=== PATIENT | female | born 1995 | race Caucasian/White ===

== ENCOUNTER 2022-04-18 10:15 | Emergency (ER) | payer OTHER, SELFPAY ==
[2022-04-18 10:28] VITALS: BP 133/84; PULSE 90; RESP 18; TEMP 36.9; O2SAT 100
--- NOTE | 2022-04-18 10:31 | ED.PREGNANCY ---
HPI - General Chief complaint: OB/Uterine Contractions Stated complaint: MIGRAINE Time Seen by Provider: 04/18/22 10:31 Source: patient Mode of arrival: ambulatory History of Present Illness HPI Narrative: 26-year-old female, currently (based on a home test a test done this morning) with last LMP on 03/19/2022 presents to the ER with -- spotting vaginal bleeding -- right lower quadrant abdominal pain without any exacerbating or relieving factors. No radiation of the pain. No nausea / vomiting. No fever. history of anxiety for which the patient takes Trileptal Complaint: abdominal pain and vaginal bleeding Onset (ago): hour(s) ( Started 4 hours ago) Pain Consistency: constant Severity: mild Quality: Aching Radiation: abdomen Relieving factors: none Exacerbating factors: none Associated symptoms: vaginal bleeding Vaginal bleeding: light Date of Last Menstrual Period: 03/19/22 Patient : Yes Number of Weeks : 4 weeks OB History - Previous Pregnancies: miscarriage ( 2 miscarriages at 7 and 9 weeks.) care: none Related Data : 5 Para: 2 Total number of abortions (spontaneous and elective): 2 Home Medications Medication Instructions Recorded Confirmed hydroxyzine HCl 25 mg tablet 25 mg PO BID PRN Anxiety 04/18/22 04/18/22 oxcarbazepine 300 mg tablet 300 mg PO BID 04/18/22 04/18/22 (Trileptal) propranolol 160 mg capsule,24 160 mg PO DAILY 04/18/22 04/18/22 hr,extended release Allergies Allergy/AdvReac Type Severity Reaction Status Date / Time nitrofurantoin Allergy Itching Verified 04/18/22 10:33 [From Macrobid] Review of Systems Review of Systems: All systems reviewed & are unremarkable except as noted in HPI and below Constitutional: Constitutional: Reports as per HPI and Reports no additional constitutional complaints Eyes: Eyes: Reports as per HPI and Reports no additional eye complaints ENT: Reports system reviewed and no additional complaints, except as documented and Reports as per HPI Cardiovascular: Cardiovascular: Reports as per HPI and Reports no additional cardiovascular complaints Respiratory: Respiratory: Reports as per HPI and Reports no additional respiratory complaints Gastrointestinal: Gastrointestinal: Reports as per HPI and Reports no additional gastrointestinal complaints Genitourinary: Genitourinary: Reports as per HPI, Reports abnormal vaginal bleeding and Reports pelvic pain Musculoskeletal: Musculoskeletal: Reports no additional musculoskeletal complaints and Reports as per HPI Integumentary/Breasts: Skin/Breast: Reports system reviewed and no additional complaints, except as docu and Reports as per HPI Neurologic: Reports system reviewed and no additional complaints, except as documented and Reports as per HPI Psychiatric: Psychiatric: Reports no additional psychiatric complaints and Reports as per HPI Endocrine: Endocrine: Reports no additional endocrine complaints and Reports as per HPI Hematologic/Lymphatic: Hematologic/Lymphatic: Reports no additional hematologic/lymphatic complaints and Reports as per HPI Allergic/Immunologic: Allergic/Immunologic: Reports no additional allergic/immunologic complaints and Reports as per HPI [facility] Past Medical History Medical History Anxiety Surgical History Surgical History Previous section Exam Const: General: no acute distress Nutritional Appearance: well nourished Orientation/consciousness: patient oriented x3 Limitations: no limitations HENMT: Head: normal to inspection Ears: external ears normal Face/Nose/Sinus: Normal external nose present Face and sinus: normal facial exam Mouth: Yes Normal oral and palatal mucosa present Throat: posterior oropharynx normal Eyes: Conjunctivae: conjunctivae normal Pupils: Equ
[2022-04-18 10:48] LABS: Appearance Urine Clear (Clear); Bilirubin Urine Negative (Negative); Blood Urine Negative (Negative); Glucose Urine UA Negative (Negative); Ketones Urine Negative (Negative); Leukocyte Esterase Ur Negative (Negative); Nitrate Urine Negative (Negative); Protein Urine Negative (Negative); Urobilinogen Urine 0.2 mg/dL (0.2-1.0)
[2022-04-18 10:52] LABS: Add Urine Microscopic? NO; Color Urine Light Yellow (Yellow)
[2022-04-18 10:59] LABS: Basophils Absolute Auto 0.03 K/mm3 (0.00-0.10); Basophils Percent Auto 0.7 % (0.0-1.0); Eosinophils Absolute Auto 0.11 K/mm3 (0.02-0.50); Eosinophils Percent Auto 2.6 % (1.0-6.0); Hematocrit 37.9 % (35.0-49.0); Hemoglobin 12.3 g/dL (12.0-15.0); Immature Granulocyte Absolute 0.01 K/mm3 (0.00-0.00); Immature Granulocyte Percent A 0.2 % (0.0-0.0); Lymphocytes Absolute Auto 1.77 K/mm3 (1.10-4.50); Lymphocytes Percent Auto 41.8 % (18.0-42.0); Mean Corpuscular HGB Conc 32.5 g/dL (32.0-36.0); Mean Corpuscular Hemoglobin 27.6 pg (27.0-31.0); Mean Corpuscular Volume 85.2 fL (78.0-102.0); Mean Platelet Volume 10.1 fl (9.2-11.8); Monocytes Absolute Auto 0.42 K/mm3 (0.10-0.90); Monocytes Percent Auto 9.9 % (2.0-11.0); Neutrophils Absolute Auto 1.9 K/mm3 (1.7-7.2); Neutrophils Percent Auto 44.8 % (50.0-70.0); Platelet Count Result 207 K/mm3 (150-420); Red Blood Count 4.45 M/mm3 (4.20-5.40); Red Cell Distribution Width 15.9 % (11.6-14.4); White Blood Count 4.2 K/mm3 (4.8-10.8)
[2022-04-18 11:12] LABS: INR 1.1; Prothrombin Time 11.5 Seconds (9.50-12.10)
[2022-04-18 11:19] LABS: Lactic Acid Reflex 0.7 mmol/L (0.4-2.0)
[2022-04-18 11:29] LABS: Alanine Aminotransferase 17 U/L (14-59); Alkaline Phosphatase 74 U/L (46-116); Anion Gap 8 mmol/L (8-16); Aspartate Amino Transferase 20 U/L (15-37); Bilirubin,Total 0.6 mg/dL (0.00-1.00); Blood Urea Nitrogen 9 mg/dL (7-18); Calcium 9.1 mg/dL (8.5-10.1); Carbon Dioxide 27 mmol/L (21-32); Chloride 105 mmol/L (98-108); Estimated CRCL calculation 80 ml/min; Estimated Glomerular Filt Rate > 60; Glucose 82 mg/dL (70-99); Osmolality Calculated 287 mOsm/kg (285-295); Potassium 3.6 mmol/L (3.5-5.1); Sodium 140 mmol/L (136-145); Thyroid Stimulating Hormone 2.13 uIU/mL (0.36-3.74); Total Protein 7.3 g/dL (6.4-8.2)
--- NOTE | 2022-04-18 11:33 | PC.NURSE ---
Pt wants HIV testing done, education and info given, consent for HIV testing for mother signed.
[2022-04-18 12:02] VITALS: BP 121/84; PULSE 88; RESP 18; TEMP 36.4; O2SAT 99
[2022-04-18 12:05] LABS: HIV 1 P24 AG Negative (Negative); HIV 1/2 AB Negative (Negative)
== END 2022-04-18 12:11 | disposition home or self-care (01) ==
PROVIDERS: Emergency Provider Internal Medicine Critical Care Medicine; PCP Family Medicine
DX: O20.0 Threatened abortion (principal); R10.9 Unspecified abdominal pain
CPT/HCPCS: 36415; 80053; 81003; 83605; 84443; 84702; 85025; 85610; 86703; 99283

== ENCOUNTER 2022-09-13 08:32 | Emergency (ER) | payer BC, SELFPAY ==
[2022-09-13 08:43] VITALS: BP 122/69; PULSE 102; RESP 16; TEMP 36.4; O2SAT 99
--- NOTE | 2022-09-13 09:26 | ED.BACK ---
HPI - Back Pain/Injury General Chief Complaint: Back Pain/Injury Stated Complaint: extremity numbness Time Seen by Provider: 09/13/22 08:37 Source: patient Mode of arrival: ambulatory Limitations: no limitations History of Present Illness HPI Narrative: this is a 27-year-old female significant past medical history is 28 weeks and has been having right low back pain and radiating into her right lower extremity there is no saddle paresthesias no hematuria no dysuria no fever chills no flank pain no abdominal pain. MD elicited complaint: back pain Onset (ago): day(s) Timing: constant Severity: mild Quality: aching Related Data Home Medications Medication Instructions Recorded Confirmed hydroxyzine HCl 25 mg tablet 25 mg PO BID PRN Anxiety 04/18/22 04/18/22 oxcarbazepine 300 mg tablet 300 mg PO BID 04/18/22 04/18/22 (Trileptal) propranolol 160 mg capsule,24 160 mg PO DAILY 04/18/22 04/18/22 hr,extended release aspirin 81 mg tablet,delayed 81 mg PO DAILY 09/13/22 09/13/22 release ondansetron 8 mg disintegrating 8 mg PO Q6H PRN Nausea 09/13/22 09/13/22 tablet Allergies Allergy/AdvReac Type Severity Reaction Status Date / Time nitrofurantoin Allergy Itching Verified 04/18/22 10:33 [From Macrobid] Review of Systems Review of Systems: All systems reviewed & are unremarkable except as noted in HPI and below PMFSH Past Medical History Medical History Anxiety Surgical History Surgical History Previous section Exam Const: General: healthy appearing Nutritional Appearance: well nourished Orientation/consciousness: patient oriented x3 Limitations: no limitations HENMT: Head: normal to inspection Face/Nose/Sinus: Normal external nose present Face and sinus: normal facial exam Mouth: Yes Normal oral and palatal mucosa present Eyes: Conjunctivae: conjunctivae normal EOM: EOMs intact bilaterally Direct Ophthalmoscopy: no photophobia Neck: Neck: normal visual inspection, no lymphadenopathy and no meningeal signs Chest: Chest palpation & inspection: normal inspection of the chest Resp: Effort & Inspection: normal respiratory effort Auscultation: clear to auscultation bilaterally Cardio: Rate: regular rate Rhythm: regular rhythm GI: GI Palp: Yes Soft to palpation Auscultation: normal bowel sounds : General: Yes bladder normal to palpation Urinary Catheter: Urinary Catheter: patent and draining Back/Spine/Pelvis: Back: no CVA tenderness Skin: General skin exam: normal color Rashes: no rashes Wounds: no wounds Neuro: General: patient oriented x3, moves all extremities and no meningeal signs Extrem: General: normal to inspection Other: Right lower back pain L5 paravertebral tenderness with positive straight leg raising test on the right Psych: Mental Status: mental status grossly normal Affect: normal affect Course Course Emergency Course: urinalysis reviewed with patient, patient did receive 1g IV Tylenol reassessment patient, her pain has improved. Vital Signs Vital signs: Vital Signs Temperature 36.4 C L 09/13/22 08:43 Pulse Rate 102 H 09/13/22 08:43 Respiratory Rate 16 09/13/22 08:43 Blood Pressure 122/69 09/13/22 08:43 Pulse Oximetry 99 09/13/22 08:43 Oxygen Delivery Room Air 09/13/22 08:43 Temperature 36.4 C L 09/13/22 08:43 Pulse Rate 102 H 09/13/22 08:43 Respiratory Rate 16 09/13/22 08:43 Blood Pressure 122/69 09/13/22 08:43 Pulse Oximetry 99 09/13/22 08:43 Oxygen Delivery Room Air 09/13/22 08:43 Critical Care Time Critical Care Time Critical Care Time: No Discharge Plan Discharge Clinical Impression: Sciatica Qualifiers: Laterality: right Qualified Code(s): M54.31 - Sciatica, right side Patient Disposition: Home, Self-Care Condition: Stable Instructions: Antibioti
[2022-09-13 10:00] VITALS: BP 106/72; PULSE 85; RESP 16; TEMP 36.7; O2SAT 98
[2022-09-16 13:02] LABS: HIV 1 RNA PCR Not Detected Copies/mL; HIV 1 RNA PCR Not Detected Log cps/mL
== END 2022-09-13 10:05 | disposition home or self-care (01) ==
PROVIDERS: Emergency Provider Emergency Medicine
DX: O26.893 Other specified pregnancy related conditions, third trimester (principal); M54.31 Sciatica, right side; O99.343 Other mental disorders complicating pregnancy, third trimester; F41.9 Anxiety disorder, unspecified; Z79.82 Long term (current) use of aspirin; Z3A.28 28 weeks gestation of pregnancy
CPT/HCPCS: 36415; 87536; 96374; 99284; J0131

== ENCOUNTER 2022-10-11 12:47 | Outpatient (CLI) | payer BC, MEDICAID, SELFPAY ==
[2022-10-14 13:36] LABS: RPR Screen Non-Reactive (Non-Reactive)
[2022-10-15 11:16] LABS: Rubella IgG Antibody <0.90 Index
[2022-10-16 02:49] LABS: Hepatitis B Surface Antigen Nonreactive (Nonreactive)
[2022-10-18 19:52] LABS: Chenodeoxycholic Acid 0.8 umol/L (< OR = 3.9); Cholic Acid 0.7 umol/L (< OR = 2.8); Deoxycholic Acid <0.5 umol/L (< OR = 2.3); Total Bile Acids <1.5 umol/L (< OR = 8.3)
== END 2022-10-11 12:48 | disposition home or self-care (01) ==
LOC: CHSLAB 12:54
PROVIDERS: Visit Provider Student in an Organized Health Care Education/Training Program
DX: Z34.90 Encounter for supervision of normal pregnancy, unspecified, unspecified trimester (principal); L50.9 Urticaria, unspecified
CPT/HCPCS: 36415; 82542; 84702; 86592; 86644; 86747; 86762; 86787; 86850; 86900; 86901; 87086; 87340

== ENCOUNTER 2022-10-25 11:12 | Outpatient (CLI) | payer BC, MEDICAID, SELFPAY ==
[2022-10-25 11:42] LABS: Alanine Aminotransferase 18 U/L (6-35); Albumin Level 3.6 g/dL (3.5-5.1); Alkaline Phosphatase 142 U/L (38-126); Anion Gap 6 mmol/L (8-16); Aspartate Amino Transferase 22 U/L (14-36); Bilirubin,Total 0.5 mg/dL (0.2-1.3); Blood Urea Nitrogen 4 mg/dL (7-17); Calcium 8.5 mg/dL (8.4-10.2); Carbon Dioxide 25 mmol/L (22-30); Chloride 106 mmol/L (98-107); Estimated Glomerular Filt Rate > 60; Glucose 99 mg/dL (65-110); Potassium 3.4 mmol/L (3.4-5.0); Sodium 137 mmol/L (137-145)
== END 2022-10-25 11:13 | disposition home or self-care (01) ==
PROVIDERS: Visit Provider Student in an Organized Health Care Education/Training Program
DX: E87.6 Hypokalemia (principal)
CPT/HCPCS: 36415; 80053

== ENCOUNTER 2022-11-01 15:36 | Emergency (ER) | payer BC, MEDICAID, SELFPAY ==
--- NOTE | ~2022-11-01 | US_ITS ---
EXAMINATION: US OB limited DATE: 11/01/2022 16:12 INDICATION: Pelvic pain during third trimester TECHNIQUE: Real-time ultrasound of the pelvis was performed. The interpreting radiologist was not pre sent for the study. COMPARISON: None. FINDINGS: There is a single living fetus in vertex presentation. The placenta is fundal. cardia c activity and movement are noted. heart rate is 138 beats per minute (bpm). The amniotic fluid index is subjectively normal. IMPRESSION: 1. Single living fetus in vertex presentation. 2. No sonographic correlate for the patient's symptoms. Reviewed, dictated and finalized at location L.
[2022-11-01 15:36] VITALS: BP 114/70; PULSE 91; RESP 22; TEMP 37; O2SAT 98
[2022-11-01 16:06] LABS: Appearance Urine Clear (Clear); Bilirubin Urine Negative (Negative); Blood Urine Negative (Negative); Color Urine Light Yellow (Yellow); Glucose Urine UA Negative (Negative); Ketones Urine Negative (Negative); Leukocyte Esterase Ur Negative LEU/UL (Negative); Nitrate Urine Negative (Negative); Protein Urine Negative (Negative); Specific Grav Ur <= 1.005 (1.010-1.020); Urobilinogen Urine 0.2 mg/dL (0.2-1.0); pH Urine 7.5 (5.0-8.0)
[2022-11-01] MEDS: ACETAMINOPHEN 500 MG TABLET 1000 MG PO (16:16)
[2022-11-01 16:24] LABS: Add Urine Microscopic? NO
[2022-11-01 16:24] LABS: Basophils Absolute Auto 0.05 K/mm3 (0.00-0.10); Basophils Percent Auto 0.6 % (0.0-1.0); Eosinophils Absolute Auto 0.18 K/mm3 (0.02-0.50); Eosinophils Percent Auto 2.1 % (1.0-6.0); Hematocrit 29.7 % (35.0-49.0); Hemoglobin 9.9 g/dL (12.0-15.0); Immature Granulocyte Absolute 0.05 K/mm3 (0.00-0.00); Immature Granulocyte Percent A 0.6 % (0.0-0.0); Lymphocytes Absolute Auto 2.73 K/mm3 (1.10-4.50); Lymphocytes Percent Auto 31.2 % (18.0-42.0); Mean Corpuscular HGB Conc 33.3 g/dL (32.0-36.0); Mean Corpuscular Volume 87.1 fL (78.0-102.0); Mean Platelet Volume 9.7 fl (9.2-11.8); Monocytes Absolute Auto 0.74 K/mm3 (0.10-0.90); Monocytes Percent Auto 8.4 % (2.0-11.0); Neutrophils Percent Auto 57.1 % (50.0-70.0); Platelet Count Result 175 K/mm3 (150-420); Red Blood Count 3.41 M/mm3 (4.20-5.40); Red Cell Distribution Width 12.6 % (11.6-14.4); White Blood Count 8.8 K/mm3 (4.8-10.8)
[2022-11-01 16:46] LABS: Alanine Aminotransferase 14 U/L (14-59); Albumin Level 2.6 g/dL (3.4-5.0); Alkaline Phosphatase 170 U/L (46-116); Anion Gap 10 mmol/L (8-16); Aspartate Amino Transferase 19 U/L (15-37); Bilirubin,Total 0.5 mg/dL (0.00-1.00); Blood Urea Nitrogen 4 mg/dL (7-18); Calcium 8.5 mg/dL (8.5-10.1); Carbon Dioxide 23 mmol/L (21-32); Chloride 104 mmol/L (98-108); Estimated CRCL calculation 111 ml/min; Estimated Glomerular Filt Rate > 60; Glucose 77 mg/dL (70-99); Osmolality Calculated 279 mOsm/kg (285-295); Potassium 3.4 mmol/L (3.5-5.1); Sodium 137 mmol/L (136-145); Total Protein 6.5 g/dL (6.4-8.2)
--- NOTE | 2022-11-01 17:18 | PC.NURSE ---
1700 pelvic exam done per dr leija with this female RN in room for exam.
--- NOTE | 2022-11-01 17:26 | ED.PREGNANCY ---
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 denies any other symptoms there is no dysuria no hematuria no vaginal bleeding no vaginal discharge there is some pain in the suprapubic area and in the the flank area with no nausea vomiting no diarrhea constipation. The patient states that she is a high risk . Currently no fever chills no vaginal discharge no dysuria no cloudy urine no hematuria. Complaint: abdominal pain Onset (ago): day(s) Pain Consistency: constant Location: pelvis Severity: moderate Severity scale (1-10): 6 Quality: Aching Radiation: pelvis Relieving factors: movement Exacerbating factors: rest Associated symptoms: denies other symptoms Vaginal discharge: none Vaginal bleeding: none Related Data Home Medications Medication Instructions Recorded Confirmed hydroxyzine HCl 25 mg tablet 25 mg PO BID PRN Anxiety 04/18/22 11/01/22 oxcarbazepine 300 mg tablet 300 mg PO BID 04/18/22 11/01/22 (Trileptal) propranolol 160 mg capsule,24 160 mg PO DAILY 04/18/22 11/01/22 hr,extended release ondansetron 8 mg disintegrating 8 mg PO Q6H PRN Nausea 09/13/22 11/01/22 tablet enoxaparin 40 mg/0.4 mL 100 mg subcut DAILY 09/24/22 11/01/22 subcutaneous syringe Allergies Allergy/AdvReac Type Severity Reaction Status Date / Time latex Allergy Intermediate Rash Verified 10/25/22 10:15 nitrofurantoin Allergy Mild Itching Verified 10/25/22 10:15 [From Macrobid] Review of Systems Review of Systems: All systems reviewed & are unremarkable except as noted in HPI and below PMFSH Past Medical History Medical History Anxiety Surgical History Surgical History H/O breast augmentation History of cholecystectomy Hx of appendectomy Previous section Social History Social History Smoking status: Never smoker Alcohol intake: former Substance use: never Living arrangements: other Additional living arrangements comments: spouse and children Occupation/Education: occupation Gender identity (if verbalized by the patient): Female Sexual Orientation (if Verbalized by the Patient): Straight or Heterosexual Exam Const: General: healthy appearing Nutritional Appearance: well nourished Orientation/consciousness: patient oriented x3 Limitations: no limitations HENMT: Head: normal to inspection Eyes: Conjunctivae: conjunctivae normal Pupils: Equal, round and reactive pupils present Chest: Chest palpation & inspection: normal inspection of the chest Resp: Effort & Inspection: normal respiratory effort Auscultation: clear to auscultation bilaterally Cardio: Rate: regular rate Rhythm: regular rhythm GI: Auscultation: normal bowel sounds : General: Yes bladder normal to palpation Urinary Catheter: Urinary Catheter: patent and draining Back/Spine/Pelvis: Back: no CVA tenderness Other: Pelvic exam there does not appear to be effacement are dilatation of the cervix. Skin: General skin exam: normal color Rashes: no rashes Neuro: General: patient oriented x3 Cranial nerves: Yes Nystagmus not present Speech: normal speech Gait exam (Neuro): Normal gait present Extrem: General: normal to inspection Psych: Mental Status: mental status grossly normal Affect: normal affect Course Course Emergency Course: Pelvic ultrasound performed which shows a live fetus in the normal vertex presentation, UA was performed which wa
[2022-11-01 17:45] VITALS: BP 116/77; PULSE 78; RESP 20; O2SAT 99
== END 2022-11-01 17:48 | disposition home or self-care (01) ==
PROVIDERS: Emergency Provider Emergency Medicine
DX: O26.893 Other specified pregnancy related conditions, third trimester (principal); R10.33 Periumbilical pain; Z3A.32 32 weeks gestation of pregnancy
CPT/HCPCS: 36415; 76815; 80053; 81003; 85025; 99284

== ENCOUNTER 2022-11-09 12:33 | Outpatient (CLI) | payer BC, MEDICAID, SELFPAY ==
[2022-11-09 13:07] LABS: Alanine Aminotransferase 16 U/L (14-59); Albumin Level 2.8 g/dL (3.4-5.0); Alkaline Phosphatase 191 U/L (46-116); Anion Gap 12 mmol/L (8-16); Aspartate Amino Transferase 17 U/L (15-37); Bilirubin,Total 0.4 mg/dL (0.00-1.00); Blood Urea Nitrogen 3 mg/dL (7-18); Calcium 8.3 mg/dL (8.5-10.1); Carbon Dioxide 25 mmol/L (21-32); Chloride 104 mmol/L (98-108); Estimated Glomerular Filt Rate > 60; Glucose 112 mg/dL (70-99); Osmolality Calculated 289 mOsm/kg (285-295); Potassium 3.2 mmol/L (3.5-5.1); Sodium 141 mmol/L (136-145); Total Protein 6.4 g/dL (6.4-8.2)
[2022-11-17 16:56] LABS: Chenodeoxycholic Acid 7.2 umol/L (< OR = 3.9); Cholic Acid 6.2 umol/L (< OR = 2.8); Deoxycholic Acid 5.8 umol/L (< OR = 2.3); Total Bile Acids 19.3 umol/L (< OR = 8.3)
== END 2022-11-09 12:34 | disposition home or self-care (01) ==
LOC: CHSLAB 12:37
PROVIDERS: Visit Provider Obstetrics & Gynecology
DX: L29.9 Pruritus, unspecified (principal)
CPT/HCPCS: 36415; 80053; 82542

== ENCOUNTER 2022-11-23 09:30 | Outpatient (RCR) | payer BC, MEDICAID, SELFPAY ==
[2022-11-13 11:00] VITALS: BP 105/73; PULSE 69
== END 2022-12-07 17:35 | disposition home or self-care (01) ==
LOC: ANHOBOP 09:30
PROVIDERS: Visit Provider Obstetrics & Gynecology
DX: O36.5930 Maternal care for other known or suspected poor fetal growth, third trimester, not applicable or unspecified (principal); Z3A.34 34 weeks gestation of pregnancy
CPT/HCPCS: 59025

== ENCOUNTER 2022-11-30 10:00 | Inpatient (IN) | payer BC, MEDICAID, SELFPAY ==
[2022-11-30] VITALS (44 sets, daily range): BP systolic 124–169; BP diastolic 69–113; PULSE 43–81; RESP 10–18; TEMP 36.1–36.4; O2SAT 97–100; BMI 21.8
--- NOTE | 2022-11-30 08:28 | PM.IMHP ---
H&P: HPI History of Present Illness Date/Time: 11/30/22 08:28 27-year-old female presents at 36.6 weeks gestation for repeat delivery. has been complicated by history of nutcracker syndrome, IUGR, and intrahepatic cholestasis of . Records are on the chart and has also been comanaged with Maternal- Medicine. Chief Complaint: PMFSH Past Medical History Medical History Anxiety Itching Surgical History Surgical History H/O breast augmentation History of cholecystectomy Hx of appendectomy Previous section Family History Family History Other Patient denies medical problems Patient denies significant medical history Social History Social History Smoking status: Never smoker Alcohol intake: former Substance use: never Living arrangements: other Additional living arrangements comments: spouse and children Occupation/Education: occupation Gender identity (if verbalized by the patient): Female Sexual Orientation (if Verbalized by the Patient): Straight or Heterosexual Spiritual care concerns: No Meds Home Medications and Allergies Home Medications Medication Instructions Recorded Confirmed Type ondansetron 8 mg disintegrating 8 mg PO Q6H PRN Nausea 09/13/22 11/27/22 History tablet enoxaparin 40 mg/0.4 mL 100 mg subcut DAILY 09/24/22 11/27/22 History subcutaneous syringe acetaminophen 500 mg tablet 500 mg PO Q6H PRN pain 11/09/22 11/27/22 History (Tylenol Extra Strength) aspirin 81 mg tablet,delayed 81 mg PO DAILY 11/09/22 11/27/22 History release (Adult Low Dose Aspirin) prenat.vits,haley,[id number] 1 tablet PO DAILY 11/29/22 11/29/22 History Allergies Allergy/AdvReac Type Severity Reaction Status Date / Time latex Allergy Intermediate Rash Verified 11/29/22 08:22 nitrofurantoin Allergy Mild Itching Verified 11/29/22 08:22 [From Macrobid] Exam Const: General: cooperative, healthy appearing and comfortable Resp: Effort & Inspection: normal respiratory effort Auscultation: clear to auscultation bilaterally Cardio: Rate: regular rate Rhythm: regular rhythm GI: Inspection: normal to inspection Auscultation: normal bowel sounds : External Female Exam: normal external appearance Bimanual exam- vagina & uterus: enlarged ( fundal height 34cm, heart tone 140) Assessment and Plan Assessment and plan (1) 36 to 37 weeks gestation of : Status: Acute (2) History of : Code(s): Z98.891 - History of uterine scar from previous surgery Status: Acute Assessment and Plan: Will proceed with repeat . (3) Nutcracker phenomenon of renal vein: Code(s): I87.1 - Compression of vein Status: Acute Assessment and Plan: Patient has stent in left renal vein, has also been on Lovenox throughout the which was stopped 48hours ago per [facility] recommendation. We will continue 24hours after delivery, and continue for 6-8 weeks post operatively. (4) Intrahepatic cholestasis of : Code(s): O26.619 - Liver and biliary tract disorders in , unspecified trimester; K83.1 - Obstruction of bile duct Status: Acute Assessment and Plan: patient has been significantly symptomatic with pruritis and per ACOG committee opinion 831 delivery is indicated at36+ weeks (5) IUGR (intrauterine growth restriction): Status: Acute Assessment and Plan: fetus has consistently been in the 8th-10th percentile with good testing and no evidence of oligohydramnios (6) Consultation for female sterilization: Code(s): Z30.09 - Encounter for other general counseling and advice on contraception
--- NOTE | 2022-11-30 08:34 | WPDHPUPDATE1 ---
History and Physical Update Update Date/Time: 11/30/22 08:34 History and Physical has been reviewed, including an updated exam of the patient. There are NO changes in the patient's condition. Risks, benefits, and alternatives have been discussed and questions answered. Patient agrees to proceed with procedure.
[2022-11-30] MEDS: LACTATED RINGERS 1,000 ML 125 ML IV CONT ×2 (11:00→13:04)
[2022-11-30 11:01] LABS: Basophils Percent Auto 0.3 % (0.2-1.2); Eosinophils Absolute Auto 0.1 K/mm3 (0-0.3); Eosinophils Percent Auto 1.5 % (0-4.4); Hemoglobin 10.9 g/dL (12.0-15.0); Immature Granulocyte Absolute 0.04 K/mm3 (0.00-0.031); Immature Granulocyte Percent A 0.5 % (0-0.5); Lymphocytes Absolute Auto 2.89 K/mm3 (0.9-3.2); Lymphocytes Percent Auto 32.7 % (18.3-44.2); Mean Corpuscular HGB Conc 32.1 g/dl (32-36); Mean Corpuscular Volume 84.4 fl (80-100); Mean Platelet Volume 10.8 fl (7.4-10.4); Monocytes Absolute Auto 0.6 K/mm3 (0.1-0.6); Neutrophils Absolute Auto 5.1 K/mm3 (1.3-6.7); Platelet Count Result 172 k/mm3 (150-375); Red Blood Count 4.03 M/mm3 (4.2-5.4); Red Cell Distribution Width 13.5 % (11.5-14.5); White Blood Count 8.9 K/mm3 (4.5-10.0)
--- NOTE | 2022-11-30 12:39 | WPDANESEPPF ---
Anes - Initial Pre Proc Eval Procedure: Operation Date: 11/30/22 12:00 Proposed Procedures p Repeat Section with Bilateral Tubal Ligation - Ebenezer Heredia MD Date/Time: 11/30/22 12:39 Surgeon: Ebenezer Heredia MD Pre Op Diagnosis: C/S Patient Data Age: 27 Gender: F Height: 1.55 m Weight: 52.4 kg Last Vital Signs Pulse 58 L 11/30/22 11:31 BP 124/79 11/30/22 11:31 O2 Del Method Room Air 11/30/22 10:31 Allergies Allergy/AdvReac Type Severity Reaction Status Date / Time latex Allergy Intermediate Rash Verified 11/30/22 10:26 nitrofurantoin Allergy Mild Itching Verified 11/30/22 10:26 [From Macrobid] Home Medications Medication Instructions Recorded Confirmed Type ondansetron 8 mg disintegrating 8 mg PO Q6H PRN Nausea 09/13/22 11/30/22 History tablet enoxaparin 40 mg/0.4 mL 100 mg subcut DAILY 09/24/22 11/30/22 History subcutaneous syringe acetaminophen 500 mg tablet 500 mg PO Q6H PRN pain 11/09/22 11/30/22 History (Tylenol Extra Strength) aspirin 81 mg tablet,delayed 81 mg PO DAILY 11/09/22 11/30/22 History release (Adult Low Dose Aspirin) prenat.vits,haley,[id number] 1 tablet PO DAILY 11/29/22 11/30/22 History Laboratory Tests 11/30/22 11/30/22 10:48 10:49 WBC 8.9 K/mm3 (4.5-10.0) RBC 4.03 L M/mm3 (4.2-5.4) Hgb 10.9 L g/dL (12.0-15.0) Hct 34.0 L % (37.0-47.0) MCV 84.4 fl (80-100) MCH 27.0 pg (26-34) MCHC 32.1 g/dl (32-36) RDW 13.5 % (11.5-14.5) Plt Count 172 k/mm3 (150-375) MPV 10.8 H fl (7.4-10.4) Immature Gran % (Auto) 0.5 % (0-0.5) Neut % (Auto) 58.0 % (45.5-73.1) Lymph % (Auto) 32.7 % (18.3-44.2) Gilliam % (Auto) 7.0 % (2.6-8.5) Eos % (Auto) 1.5 % (0-4.4) Baso % (Auto) 0.3 % (0.2-1.2) Lymph # (Auto) 2.89 K/mm3 (0.9-3.2) Gilliam # (Auto) 0.6 K/mm3 (0.1-0.6) Eos # (Auto) 0.1 K/mm3 (0-0.3) Baso # (Auto) 0.0 K/mm3 (0.0-0.1) Abs Immat Gran (auto) 0.04 H K/mm3 (0.00-0.031) Absolute Neuts (auto) 5.1 K/mm3 (1.3-6.7) Absolute Nucleated RBC 0.0 K/mm3 (0.0-0.012) Nucleated RBC % 0.0 % (0.0-0.2) RPR Pending Blood Type O Positive Antibody Screen Negative Patient hx anesthesia problems: none Family hx anesthesia problems: none Results Review: All pre-operative results and documents have been reviewed as part of the pre-operative evaluation. [facility] Past Medical History Medical History Anxiety Itching Surgical History Surgical History H/O breast augmentation History of cholecystectomy Hx of appendectomy Previous section Family History Family History Other Patient denies medical problems Patient denies significant medical history Social History Social History Smoking status: Never smoker Alcohol intake: former Substance use: never Lack of Transportation: No Lack of Food: Never True Current Housing: I Have Housing Concerned About Future Housing: No Difficulty Paying Gas/Electric Bills: No Difficulty Paying for Meds: No Currently Unemployed: No Education: Associate Degree Difficulty w/ Childcare or Family Care: No Living arrangements: other Additional living arrangements comments: spouse and children Occupation/Education: occupation Gender identity (if verbalized by the patient): Female Sexual Orientation (if Verbalized by the Patient): Straight or Heterosexual Spiritual care concerns: No Anes - Eval Final PreProcedure Day of Procedure 11/30/22 12:39 Patient weight: normal Heart: regular rate and rhythm Lungs: clear to auscultation
[2022-11-30] MEDS: ceFAZolin 2 GM/D5W 50 ML 2 GM/50 ML BAG IVPB (13:13)
--- NOTE | 2022-11-30 14:13 | PM.OBPRVD ---
OB - Delivery Note Procedure Procedure: Procedures Operation Date: 11/30/22 12:00 1. Repeat low transverse section 2. Bilateral salpingectomy Events: Intrauterine Growth Restriction (IUGR), Previous Delivery and Other (ICP) Route of delivery: Specimen: Yes Quantitative Blood Loss (ml): 690 Anesthesia type: Spinal Disposition: Floor Complications: None Narrative: Patient prepped draped usual manner for this procedure. Pfannenstiel incision was made through prior incision. This was carried down to the fascia and extended bilaterally the length of the skin incision. Superiorly and inferiorly the rectus muscles were then dissected from the fascia and the peritoneum was readily entered without difficulty. Bladder flap was developed uterus scored and extended bilaterally length the lower segment with clear fluid noted. Vertex was delivered with nuchal cord reduced and the rest of baby was the without difficulty. Cord clamped cut baby was passed off the operative field. Manual removal of the placenta and membranes and clots were all removed as well. Uterus was exteriorized and approximated using 0 Monocryl running interlocking manner with good approximation hemostasis noted. Attention was then placed to the tubes bilaterally and grasped with the tubes being removed through the mesial salpinx. This was done bilaterally and tubes were removed. Uterus at this point was inspected noted be well contracted, uterine incision was hemostatic, and both tubal stumps were hemostatic. Uterus was returned to the abdomen and again in the tubal stumps were inspected no bleeding and uterine incision without bleeding. Fascia was approximated using 0 Vicryl from the left angle to the midline have the right angle to midline with good approximation noted. Subcutaneous tissue was irrigated and cauterized. [place] were then used to approximate the skin edges and the patient was sent to recovery room in stable condition. [place] Baby Weeks of gestation at delivery: 36 Infant gender: Female Weight (pounds): 5 Weight (ounces): 0 presentation: vertex Placenta delivery description: Manual Removal Cord Vessel Description: 3 Vessels, Nuchal Cord and Reduced score one minute: 8 score five minutes: 9 AMG Delivery Billing Delivery Delivery: Delivery Charge
[2022-11-30] MEDS: OXYTOCIN 30 UNITS/NS 500 ML 30 UNITS/500 ML BAG 125 UNITS IV CONT (14:59)
[2022-11-30] MEDS: IBUPROFEN 600 MG TABLET PO ×2 (16:10→21:47)
--- NOTE | 2022-11-30 17:05 | OBPPTRN ---
Patient transferred to post room # 280 via stretcher. Support person present. Oriented to unit, room, information board, rooming in, admission packet and security measures. Patient verbalizes understanding.
[2022-11-30] MEDS: SIMETHICONE 80 MG TAB.CHEW PO (20:45)
[2022-11-30] MEDS: DOCUSATE SODIUM 100 MG CAPSULE PO (20:45)
[2022-11-30] MEDS: ACETAMINOPHEN 325 MG TABLET 650 MG PO (20:47)
[2022-12-01] MEDS: SIMETHICONE 80 MG TAB.CHEW PO ×3 (01:06→19:27)
[2022-12-01 04:00] VITALS: BP 99/53; PULSE 58; RESP 18; TEMP 36.6; O2SAT 98
[2022-12-01 05:41] LABS: Basophils Percent Auto 0.4 % (0.2-1.2); Eosinophils Absolute Auto 0.1 K/mm3 (0-0.3); Eosinophils Percent Auto 0.8 % (0-4.4); Hematocrit 27.7 % (37.0-47.0); Hemoglobin 8.6 g/dL (12.0-15.0); Immature Granulocyte Absolute 0.04 K/mm3 (0.00-0.031); Immature Granulocyte Percent A 0.4 % (0-0.5); Lymphocytes Absolute Auto 2.13 K/mm3 (0.9-3.2); Lymphocytes Percent Auto 18.9 % (18.3-44.2); Mean Corpuscular Hemoglobin 26.6 pg (26-34); Mean Corpuscular Volume 85.8 fl (80-100); Mean Platelet Volume 11.4 fl (7.4-10.4); Monocytes Absolute Auto 0.6 K/mm3 (0.1-0.6); Neutrophils Absolute Auto 8.4 K/mm3 (1.3-6.7); Neutrophils Percent Auto 74.5 % (45.5-73.1); Platelet Count Result 152 k/mm3 (150-375); Red Blood Count 3.23 M/mm3 (4.2-5.4); Red Cell Distribution Width 13.2 % (11.5-14.5); White Blood Count 11.3 K/mm3 (4.5-10.0)
--- NOTE | 2022-12-01 07:39 | WPDANLDNPN2 ---
Anes-Prog Note L&D-Neuraxial Date/Time: 12/01/22 07:39 Neuraxial medications: intrathecal PF morphine Opiod-related complaints: none Patient feedback: Patient satisfied with post-operative pain management.
--- NOTE | 2022-12-01 07:40 | WPDANLDPN2 ---
Anes-Prog Note L&D Date/Time: 12/01/22 07:40 Comfortable throughout: section Neuraxial method: spinal Epidural/Spinal procedure site: clean & non-tender Neuro status: Neuro function grossly intact. Cardiovascular status: normal Respiratory status: normal Airway patency: baseline Mental status: baseline Post-Op hydration status: normal Vital Signs: Last Vital Signs Temp 36.6 C 12/01/22 04:00 Pulse 58 L 12/01/22 04:00 Resp 18 12/01/22 04:00 BP 99/53 L 12/01/22 04:00 Pulse Ox 98 12/01/22 04:00 O2 Del Method Room Air 12/01/22 04:00 Pain score (VAS): 1 I/O: Intake & Output 11/30/22 11/30/22 12/01/22 15:59 23:59 07:59 Intake Total 1000 300 Output Total 690 708 600 Balance 310 -103 -600 Post-procedural complaints: none Patient feedback: Patient satisfied with anesthetic care.
[2022-12-01] MEDS: DOCUSATE SODIUM 100 MG CAPSULE PO ×2 (07:54→19:27)
[2022-12-01] MEDS: POLYSACCHARIDE IRON COMPLEX 150 MG CAPSULE PO ×2 (07:54→19:27)
[2022-12-01] MEDS: IBUPROFEN 600 MG TABLET PO ×3 (07:55→22:55)
[2022-12-01] MEDS: MULTIVIT/MIN/PREN/FOL AC/IRON TABLET 1 TAB PO (07:56)
[2022-12-01 08:00] VITALS: BP 115/72; PULSE 59; RESP 16; TEMP 36.8; O2SAT 100
--- NOTE | 2022-12-01 10:15 | PC.NURSE ---
Lidocaine patch removed from abdomen. Pt tolerated well
--- NOTE | 2022-12-01 10:43 | PM.OBPNVD ---
OB - PN: Subj Subjective Date/time seen: 12/01/22 10:43 S: Pain well controlled. Having some reflux but no significant nausea or vomiting this morning. Minimal bleeding, diet well tolerated. O: Vital signs stable afebrile Abdomen: positive bowel sounds soft no guarding or rebound. incision intact with no bleeding. Labs: Reviewed A: Postoperative day 1 status post repeat low transverse section with bilateral salpingectomy P : Routine postoperative care today likely discharge home tomorrow. Also will re initiate Lovenox therapy have stressed to the patient this needs to continue for 6 weeks postop. OB - PN: Obj Data Labs 12/01/22 03:11 Labs: Laboratory Results - last 24 hr 11/30/22 11/30/22 12/01/22 10:48 10:49 03:11 WBC 8.9 11.3 H RBC 4.03 L 3.23 L Hgb 10.9 L 8.6 L Hct 34.0 L 27.7 L MCV 84.4 85.8 MCH 27.0 26.6 MCHC 32.1 31.0 L RDW 13.5 13.2 Plt Count 172 152 MPV 10.8 H 11.4 H Immature Gran % (Auto) 0.5 0.4 Neut % (Auto) 58.0 74.5 H Lymph % (Auto) 32.7 18.9 Pendleton % (Auto) 7.0 5.0 Eos % (Auto) 1.5 0.8 Baso % (Auto) 0.3 0.4 Lymph # (Auto) 2.89 2.13 Pendleton # (Auto) 0.6 0.6 Eos # (Auto) 0.1 0.1 Baso # (Auto) 0.0 0.0 Abs Immat Gran (auto) 0.04 H 0.04 H Absolute Neuts (auto) 5.1 8.4 H Absolute Nucleated RBC 0.0 0.0 Nucleated RBC % 0.0 0.0 Blood Type O Positive Antibody Screen Negative OB - PN A/P Time Spent With Patient Time: Total time spent is greater than 50% in coordination of care (as documented) at patient's floor/unit and/or counseling patient:
[2022-12-01] MEDS: ENOXAPARIN 40 MG/0.4 ML SYRINGE SUB-Q (14:41)
[2022-12-01] MEDS: ACETAMINOPHEN 325 MG TABLET 650 MG PO (19:26)
[2022-12-01 19:36] VITALS: BP 117/75; PULSE 68; RESP 18; TEMP 36.7
[2022-12-02 01:00] VITALS: BP 125/74; PULSE 69; RESP 18; TEMP 36.6; O2SAT 97
[2022-12-02] MEDS: ACETAMINOPHEN 325 MG TABLET 650 MG PO ×2 (01:01→08:45)
[2022-12-02] MEDS: SIMETHICONE 80 MG TAB.CHEW PO ×2 (01:04→09:00)
[2022-12-02] MEDS: IBUPROFEN 600 MG TABLET PO (04:47)
--- NOTE | 2022-12-02 08:37 | PM.OBDSVD ---
DS: Admitting Diagnosis Discharge Date 12/02/2022 Admitting Diagnosis DS: Discharge Diagnosis Discharge Diagnosis (1) , delivered: Code(s): O80 - Encounter for full-term uncomplicated delivery Status: Acute OB - DS: Summary OB Procedures : None OB Procedures Intrapartum: and Tubal ligation OB Procedures: : None Peripartum Data Procedures: Procedures Operation Date: 11/30/22 12:00 Actual Procedure Side Surgeon p Repeat Section with Bilateral Tubal Ligation Ebenezer Heredia MD Time Spent with Patient Time attestation: Total time spent providing and/or coordinating discharge services: DS: Data Data Completed and Pending Pending studies at discharge: Pending at discharge 11/30/22 14:36 Surgical [PTH] Routine 11/30/22 14:38 Surgical [PTH] Routine Discharge Plan Discharge Discharging Clinician: Ebenezer Heredia Patient Disposition: Home, Self-Care Activity: no straining, no driving, follow weight bearing status and pelvic rest Diet: as tolerated Discharge Instructions: Education: Mom and Baby Guide Given to: Mother Follow-Up: Call your delivering provider's office for an appointment to be seen in: 1 Week Mom and baby should come to the [facility] for the follow-up appointment. Appointment Date/Time: December 05, 2022 at 11:00 am What to expect at your follow-up visit: Blood Pressure Check Physical Assessment Call [phone] if you are unable to keep your appointment time. BREAST CARE: * Wear a snug supportive bra. * For engorgement discomfort: Breast Feeding: * Apply warm moist washcloths * Express milk as needed to relieve engorgement * Wear loose clothing * For sore nipples: * Identify correct latch-on * Apply warm moist washcloths before and after nursing * Air dry nipples after nursing * May apply Lansinoh cream to nipples ABDOMINAL INCISION: (if applicable) * Allow incision to air dry * Do NOT use lotions for powders on your incision * When showering, allow soap and water to run over the incision, but do not wash incision EPISIOTOMY/PERINEAL CARE: * Until bleeding stops, use your lima bottle after urinating * Change your pad frequently throughout the day * No tub baths until seen by your physician - You may shower ACTIVITY: * Rest as much as possible. * Do not exercise or lift anything heavier than your baby (such as laundry or other children.) * Avoid stairs or driving as much as possible. * Do not put anything into the vagina. No douching, tampons, or sexual activity until seen by physician. NOTIFY PHYSICIAN IF YOU HAVE ANY QUESTIONS OR IF ANY OF THE FOLLOWING SYMPTOMS OCCUR: * If your incision becomes red, swollen, or more painful than what you have experienced in the hospital. * If your vaginal bleeding becomes foul smelling. * If your vaginal bleeding becomes more heavy than a period or if your bleeding changes from pink to bright red. However, you may pass an occasional walnut-sized clot once or twice for the first week . * If you experience a sharp, shooting pain in your calves. * If you discover a hard, reddened area on your breast or if you experience flu-like symptoms. DIET: * Eat regular, well-balanced meals. * Drink plenty of fluids daily. Patient Instructions: Antibiotic Form Stand Alone Forms: General Discharge Information Follow-up/Referrals: Ebenezer Heredia MD [Physician] - 3 Weeks Discharge Medications: New hydrocodone-acetaminophen 5-325 mg Tablet 1 tablet PO Q3H PRN (Reason: Moderate Pain (4-6)) Qty: 30 0RF docusate sodium 100 mg Capsule 100 mg PO BID Qty: 30 0RF ibuprofen 600 mg Tablet 600 mg PO Q6H PRN (Reason: Cramping) Qty: 30 0RF Continued ondansetron 8 mg tablet,disintegrating 8 mg PO Q6H PRN (Reaso
[2022-12-02] MEDS: MULTIVIT/MIN/PREN/FOL AC/IRON TABLET 1 TAB PO (08:45)
[2022-12-02] MEDS: POLYSACCHARIDE IRON COMPLEX 150 MG CAPSULE PO (08:45)
[2022-12-02] MEDS: ENOXAPARIN 40 MG/0.4 ML SYRINGE SUB-Q (12:30)
[2022-12-03 11:48] LABS: Rapid Plasma Reagin Non-Reactive (NonReactive)
[2022-12-05 11:50] VITALS: BP 139/88; PULSE 56; RESP 18; TEMP 37.2; O2SAT 99
== END 2022-12-02 12:40 | disposition home or self-care (01) | DRG 783 ==
LOC: ANHLDR 10:05 → ANHOB2 17:08
PROVIDERS: Admitting Provider Obstetrics & Gynecology; Visit Provider Obstetrics & Gynecology
PROC: 10D00Z1 Extraction of Products of Conception, Low, Open Approach (ICD-10-PCS; CPT 59514; principal; 2022-11-30 12:00)
DX: O34.211 Maternal care for low transverse scar from previous cesarean delivery (principal); K83.1 Obstruction of bile duct; O26.62 Liver and biliary tract disorders in childbirth; I87.1 Compression of vein; O36.5930 Maternal care for other known or suspected poor fetal growth, third trimester, not applicable or unspecified; Z37.0 Single live birth; Z3A.36 36 weeks gestation of pregnancy; O69.81X0 Labor and delivery complicated by cord around neck, without compression, not applicable or unspecified; Z30.2 Encounter for sterilization
CPT/HCPCS: 36415; 85025; 86592; 86850; 86900; 86901; 88302; 88307; A9270; J0690; J1650; J2274; J2590; J7120

== ENCOUNTER 2024-02-28 08:54 | Outpatient (CLI) | payer OTHER, SELFPAY ==
--- NOTE | ~2024-02-28 | US_ITS ---
EXAMINATION: US pelvic complete w TV DATE: 02/28/2024 09:32 INDICATION: Pelvic pain. TECHNIQUE: Multiple transabdominal and transvaginal sonographic images of the pelvis were obtained. COMPARISON: None. FINDINGS: TRANSABDOMINAL ULTRASOUND: The uterus measures 7.9 x 5.4 x 4.7 cm. There is no free fluid in the pelvis. TRANSVAGINAL ULTRASOUND: The endometrial complex measures 11 mm in thickness. The right ovary measures 3.2 x 2.3 x 3.1 cm. The left ovary measures 2.6 x 2.2 x 1.5 cm. There is normal vascular flow in the ovaries. IMPRESSION: 1. Normal pelvis. Reviewed, dictated and finalized at location A. IMPRESSION: 1. Normal pelvis.
== END 2024-02-28 08:55 | disposition home or self-care (01) ==
LOC: CHSIMG 08:56
PROVIDERS: PCP Family Medicine; Visit Provider Obstetrics & Gynecology
DX: R10.2 Pelvic and perineal pain (principal)
CPT/HCPCS: 76830; 76856

== ENCOUNTER 2024-04-07 11:18 | Outpatient (CLI) | payer OTHER, SELFPAY | END 2024-04-07 11:19 | disposition home or self-care (01) | PROVIDERS: PCP Family Medicine; Visit Provider Obstetrics & Gynecology | DX: Z01.818 Encounter for other preprocedural examination (principal) | CPT/HCPCS: 36415; 86850; 86900; 86901 ==

== ENCOUNTER 2024-04-16 00:22 | Day surgery (SDC) | payer OTHER, SELFPAY ==
[2024-04-06 13:22] VITALS: BMI 20.2
--- NOTE | 2024-04-06 13:33 | SUR.PREOP ---
Report to the Outpatient Waiting Room, entrance under the green pavilion located off [facility], at time 12:30p.m. on date 04/16/2024. Planned Procedure Time: 2:30p.m..? Time changes happen often and if your time is changed the preop area will call you the afternoon before. - You and your visitor will be asked to self-screen and do not enter if you have any COVID symptoms. Please call surgeon if you need to reschedule. - A mask is optional within the hospital at this time. Patients may have clear liquids (water, carbonated beverages, clear teas, apple juice) until 3 hours prior to surgery with a maximum of 20 ounces. - No food from midnight until time of surgery and no smoking Take only the following medications with a SIP of water on the morning of surgery: N/A DO NOT STOP ANY OF YOUR OTHER PRESCRIPTION MEDICATIONS PRIOR TO SURGERY EXCEPT THE FOLLOWING Medications to discontinue per physician N/A Date to take last dose N/A Please no make-up, nail slovak, hairspray, perfume, deodorant, or body powder the day of surgery.? No jewelry (including any body piercings) or valuables the day of surgery, leave them at home.? Please take a shower or bath the night before, or the morning of, surgery with an antibacterial soap.? Wear comfortable, loose fitting clothing.? Children are encouraged to wear pajamas. - Jewelry must be removed prior to entering the operating room.? Rings and piercings that are not removed may be cut off. - The hospital will not accept responsibility for valuables.? - Please leave all valuables, including medications, at home the day of surgery. If you are going home after surgery, a licensed rental car ferry driver must drive you home.? - NO public transportation without another adult if you receive anesthesia. - We recommend that an adult stay with you for 24 hours following discharge. - We also recommend that you do not drive, make important decision, drink alcoholic beverages, or take any drugs that were not prescribed by your health care provider for at least 24 hours after your discharge time. For Pediatric surgeries, we recommend two adults accompany the child home. Follow any additional instructions given to you from your surgeon. Telephone instructions given to Nilam Eckert and asked if any additional questions and then verbalized understanding. Patient advised to call surgeon office or pre surgery nurse liaison [phone] if any additional questions.
--- NOTE | 2024-04-16 00:12 | PM.IMHP ---
H&P: HPI History of Present Illness Date/Time: 04/16/24 00:12 Chief Complaint: Heavy menses. Narrative: 28 y/o with heavy, irregular menses and a lot of pain. She has had a tubal ligation. She has tried hormonal management with Nexplanon, but this has not helped. She has limited options because of a history of DVT. She desires definitive management with hysterectomy. Review of Systems Review of Systems: All systems reviewed & are unremarkable except as noted in HPI and below PMFSH Past Medical History Medical History Anxiety DVT (deep venous thrombosis) Itching Surgical History Surgical History Delivery by section (11/30/22) Repeat low transverse section Bilateral salpingectomy H/O breast augmentation History of cholecystectomy Hx of appendectomy Previous section Family History Family History Other Patient denies medical problems Patient denies significant medical history Social History Social History Smoking status: Never smoker Alcohol intake: former Substance use: never Lack of Transportation: No Lack of Food: Never True Current Housing: I Have Housing Concerned About Future Housing: No Difficulty Paying Gas/Electric Bills: No Difficulty Paying for Meds: No Currently Unemployed: No Education: Associate Degree Difficulty w/ Childcare or Family Care: No Living arrangements: with family Additional living arrangements comments: spouse and children Occupation/Education: occupation Gender identity (if verbalized by the patient): Female Sexual Orientation (if Verbalized by the Patient): Straight or Heterosexual Spiritual care concerns: No Meds Home Medications and Allergies Home Medications Medication Instructions Recorded Confirmed Type No Home Medications 04/06/24 04/06/24 History Allergies Allergy/AdvReac Type Severity Reaction Status Date / Time latex Allergy Intermediate Rash Verified 04/06/24 13:20 nitrofurantoin Allergy Mild Itching Verified 04/06/24 13:20 [From Macrobid] Exam Const: Orientation/consciousness: patient oriented x3 Other: Well-developed, well-nourished female in no acute distress. Neck: Thyroid: thyroid normal Lymphatic: no lymphadenopathy noted (in neck, axilla or inguinal nodes) Resp: Effort & Inspection: normal respiratory effort Auscultation: clear to auscultation bilaterally Cardio: Rate: regular rate Rhythm: regular rhythm Heart sounds: S1 normal heart sound present and S2 normal heart sound present GI: Other: ABD: Soft, nontender, nondistended. No guarding or rebound tenderness. No hepatosplenomegaly. : General: Yes no CVA tenderness Other: External genitalia: normal female hair distribution, without lesion. Urethral meatus: no lesion, non prolapsed. Bladder: no mass, nontender Vagina: well-estrogenized, without lesion or discharge. No cystocele or rectocele. Cervix: no lesion or discharge. Uterus: small, anteverted, freely mobile, nontender Adnexa: no mass or tenderness. Anus/perineum: no lesions, nontender Back/Spine/Pelvis: Back: no CVA tenderness Skin: General skin exam: normal color and no rashes or lesions noted Neuro: General: patient oriented x3 Extrem: Other: Extremities: nontender with no edema Psych: Mental Status: mental status grossly normal Affect: normal affect Assessment and Plan Assessment and plan (1) Menometrorrhagia: Code(s): N92.1 - Excessive and frequent menstruation with irregular cycle Status: Acute Assessment and Plan: A: Menometrorrhagia with dysmenorrhea. P: We have reviewed medical as well as surgical approaches, and she desires definitive management with hysterect
--- NOTE | 2024-04-16 13:29 | WPDANESEPPF ---
Anes - Initial Pre Proc Eval Procedure: Operation Date: 04/16/24 14:30 Proposed Procedures p Robotic Assisted Total Vaginal Hysterectomy with Bilateral Salpingectomy - Marty Rivera MD Date/Time: 04/16/24 13:29 Surgeon: Marty Rivera MD Pre Op Diagnosis: heav Bleed, Hx of DVT, Dyspareunia Patient Data Age: 28 Gender: F Height: 1.55 m Weight: 48.53 kg Allergies Allergy/AdvReac Type Severity Reaction Status Date / Time latex Allergy Intermediate Rash Verified 04/06/24 13:20 nitrofurantoin Allergy Mild Itching Verified 04/06/24 13:20 [From Macrobid] Home Medications Medication Instructions Recorded Confirmed Type No Home Medications 04/06/24 04/06/24 History Patient hx anesthesia problems: none Family hx anesthesia problems: none Results Review: All pre-operative results and documents have been reviewed as part of the pre-operative evaluation. [facility] Past Medical History Medical History Anxiety DVT (deep venous thrombosis) Itching Surgical History Surgical History Delivery by section (11/30/22) Repeat low transverse section Bilateral salpingectomy H/O breast augmentation History of cholecystectomy Hx of appendectomy Previous section Family History Family History Other Patient denies medical problems Patient denies significant medical history Social History Social History Smoking status: Never smoker Alcohol intake: former Substance use: never Lack of Transportation: No Lack of Food: Never True Current Housing: I Have Housing Concerned About Future Housing: No Difficulty Paying Gas/Electric Bills: No Difficulty Paying for Meds: No Currently Unemployed: No Education: Associate Degree Difficulty w/ Childcare or Family Care: No Living arrangements: with family Additional living arrangements comments: spouse and children Occupation/Education: occupation Gender identity (if verbalized by the patient): Female Sexual Orientation (if Verbalized by the Patient): Straight or Heterosexual Spiritual care concerns: No Anes - Eval Final PreProcedure Day of Procedure 04/16/24 13:29 Patient weight: normal Heart: regular rate and rhythm Lungs: clear to auscultation Airway: Mallampati scale class II Neurological: alert and oriented Last oral intake: >/= 8 hours ASA classification: II Emergent: no Anesthetic plan: proceed Anesthesia type and monitoring: general ETT and standard monitoring Results Review: All pre-operative results and documents have been reviewed as part of the pre-operative evaluation. Informed Consent: The patient's anesthetic plan and its attendant risks and benefits were discussed with the patient/family/POA. Questions were solicited and answers provided to the satisfaction of the patient/family/POA.
[2024-04-16 13:35] VITALS: BP 125/73; PULSE 78; RESP 14; TEMP 36.7; O2SAT 100
[2024-04-16] MEDS: LACTATED RINGERS 1,000 ML 30 ML IV CONT ×2 (13:35→15:34)
[2024-04-16] MEDS: KETOROLAC 15 MG/ML VIAL (*BKC) IV PUSH (13:35)
[2024-04-16] MEDS: ACETAMINOPHEN 500 MG TABLET 1000 MG PO (13:35)
[2024-04-16] MEDS: SCOPOLAMINE 1 MG PATCH 1 PATCH TRANSDERM (13:35)
--- NOTE | 2024-04-16 13:43 | WPDHPUPDATE1 ---
History and Physical Update Update Date/Time: 04/16/24 13:43 History and Physical has been reviewed, including an updated exam of the patient. There are NO changes in the patient's condition. Risks, benefits, and alternatives have been discussed and questions answered. Patient agrees to proceed with procedure.
[2024-04-16 13:52] LABS: BEDSIDEPREGUCG Negative (Negative)
[2024-04-16] MEDS: ceFAZolin 2 GM/D5W 50 ML 2 GM/50 ML BAG IVPB (13:59)
--- NOTE | 2024-04-16 15:16 | P.OP_ITS ---
Procedure Note - Detailed Date of Procedure 04/16/24 Pre-op Diagnosis Menometrorrhagia Dysmenorrhea Post-op Diagnosis Same Procedure Performed Robotic assisted total vaginal hysterectomy with right salpingooophorectomy Surgeon Marty Rivera MD Anesthesia General Findings Normal-appearing uterus. Tubes with evidence of prior tubal sterilization. Bilateral ovaries, round and uterosacral ligaments, anterior and posterior cul de sac all unnremarkable. Description of Procedure The patient was taken to the operating room where general endotracheal anesthesia was administered. She was prepared and draped in the usual sterile fashion in the dorsal lithotomy position. The bladder was drained with Montoya catheter. The cervix was visualized and the anterior lip was grasped using a single-tooth tenaculum. The cervix was gently dilated using Hegar dilators. The CORRIE 2 uterine manipulator was then placed and the tenaculum was removed. Gloves were changed and attention was turned to the abdomen. A supraumbilical skin incision was made with the scalpel. The Veress needle was advanced and pneumoperitoneum was administered using carbon dioxide gas. The bladeless trocar was then advanced. Intraperitoneal placement was confirmed using the laparoscope. Lateral ports and an administrative assistant office manager port were all placed using bladeless trocars under direct laparoscopic visualization. She was placed in Trendelenburg position and the patient cart was docked. I assumed the console. The ureters were visualized bilaterally. The round ligament on the right was divided. The infundibulopelvic ligament was divided. The broad ligament was divided, skeletonizing the uterine artery on the right. The bladder was reflected away. The left side was similarly dissected, this time dividing the uteroovarian ligament and preserving the left ovary. Colpotomy was performed circumferentially. The specimen was removed and passed off to be sent to pathology. The vaginal cuff was reapproximated using 0 Vicryl in interrupted [id number] fashion. The pelvis was irrigated copiously using warmed normal saline. Rigorous hemostasis was assured. Surgicel powder was applied to the vaginal cuff. The pedicles were inspected once again. The ports were then withdrawn and the gas was allowed to escape. The skin incisions were reapproximated using 4 0 Monocryl in interrupted subcuticular fashion. Dermaflex was applied externally. Sponge, lap, needle and instrument counts were correct. The patient was awakened and taken to the recovery room in stable condition. I was present and scrubbed through the entire procedure. Implants None Estimated Blood Loss 50 Drains No Packing No Pathology Yes (Uterus, cervix, right tube and ovary) Complications None Condition Stable Disposition PACU
[2024-04-16 15:34] VITALS: BP 100/65; PULSE 108; RESP 12; TEMP 36.3; O2SAT 100
[2024-04-16] MEDS: fentaNYL CITRATE INJ (*CRX) 100 MCG/2 ML VIAL 25 MCG IV PUSH ×4 (15:45→15:57)
[2024-04-16 15:48] VITALS: BP 132/76; PULSE 95; RESP 15; O2SAT 100
[2024-04-16 16:02] VITALS: BP 123/76; PULSE 96; RESP 17; O2SAT 100
[2024-04-16 16:14] VITALS: BP 136/82; PULSE 90; RESP 20
[2024-04-16 16:45] VITALS: BP 136/82; PULSE 90; RESP 20
== END 2024-04-16 16:52 | disposition home or self-care (01) ==
PROVIDERS: Anesthesiology; PCP Family Medicine; Visit Provider Obstetrics & Gynecology
PROC: (CPT 58552; principal; 2024-04-16 14:30)
DX: N94.89 Other specified conditions associated with female genital organs and menstrual cycle (principal); N83.01 Follicular cyst of right ovary; N87.9 Dysplasia of cervix uteri, unspecified; N73.6 Female pelvic peritoneal adhesions (postinfective); F41.9 Anxiety disorder, unspecified; G89.18 Other acute postprocedural pain; Z98.890 Other specified postprocedural states; Z98.51 Tubal ligation status; Z90.49 Acquired absence of other specified parts of digestive tract; Z86.718 Personal history of other venous thrombosis and embolism
CPT/HCPCS: 58552; S2900; 88307; A9270; J0690; J1100; J1885; J2250; J2405; J2704; J3010; J7030; J7120

== ENCOUNTER 2024-04-26 23:36 | Emergency (ER) | payer OTHER, SELFPAY ==
[2024-04-26 23:40] VITALS: BP 137/82; PULSE 84; RESP 18; TEMP 36.6; O2SAT 99
--- NOTE | 2024-04-26 23:52 | ED.GENADULT ---
HPI - General Adult General Chief complaint: Dizziness Stated complaint: Dizzy Time Seen by Provider: 04/26/24 23:43 History of Present Illness HPI narrative: Nilam is a 20F with a PMH of a recent hysterectomy 10 days ago that presented to the ED with 2 days of vertigo. The world is spinning and it is much worse with walking and looking up. She becomes very nauseated with it as well. NO CP, headache, ear ache, hearing loss, palpitations or dyspnea. No syncope. Related Data Allergies Allergy/AdvReac Type Severity Reaction Status Date / Time latex Allergy Intermediate Rash Verified 04/16/24 13:52 nitrofurantoin Allergy Mild Itching Verified 04/16/24 13:52 [From Macrobid] Review of Systems Review of Systems: All systems reviewed & are unremarkable except as noted in HPI and below PMFSH Past Medical History Medical History Anxiety DVT (deep venous thrombosis) Itching Surgical History Surgical History Delivery by section (11/30/22) Repeat low transverse section Bilateral salpingectomy H/O breast augmentation History of cholecystectomy Hx of appendectomy Previous section Family History Family History Other Patient denies medical problems Patient denies significant medical history Social History Social History Smoking status: Never smoker Alcohol intake: former Substance use: never Lack of Transportation: No Lack of Food: Never True Current Housing: I Have Housing Concerned About Future Housing: No Difficulty Paying Gas/Electric Bills: No Difficulty Paying for Meds: No Currently Unemployed: No Education: Associate Degree Difficulty w/ Childcare or Family Care: No Living arrangements: with family Additional living arrangements comments: spouse and children Occupation/Education: occupation Gender identity (if verbalized by the patient): Female Sexual Orientation (if Verbalized by the Patient): Straight or Heterosexual Spiritual care concerns: No Exam Const: General: cooperative, healthy appearing, comfortable, no acute distress, well developed, alert, awake and Physically active Orientation/consciousness: oriented to person, oriented to place and oriented to time HENMT: Head: normal to inspection, normocephalic and atraumatic Ears: hearing grossly normal bilaterally and external ears normal Face/Nose/Sinus: Normal external nose present Eyes: General: appearance normal, both eyes and all related structures Periorbital: periorbital findings normal Sclera: sclerae normal Pupils: Equal, round and reactive pupils present Neck: Neck: normal visual inspection Chest: Chest palpation & inspection: normal inspection of the chest Resp: Effort & Inspection: normal respiratory effort, able to speak in complete sentences and no respiratory distress Auscultation: clear to auscultation bilaterally Cardio: Jugular venous distension: no JVD Rate: regular rate Rhythm: regular rhythm Skin: General skin exam: normal color and no rashes or lesions noted Neuro: General: oriented to person, oriented to place and oriented to time Cranial nerves: Yes Equal, round and reactive pupils present Other: Several beats of right sided nystagmus. No vertical nystagmus. Remainder of HINTS exam was unremarkable. NOrmal finger to nose. Normal gait and speech. Extrem: General: normal to inspection Course Course Emergency Course: Labs unremarkable. Exam consistent with BPPV. Gave a dose of meclizine. Vital Signs Vital signs: Vital Signs Temperature 98 F 04/26/24 23:40 Pulse Rate 84 04/26/24 23:40 Respiratory Rate 18 04/26/24 23:40 Blood Pressure 137/82 04/26/24 23:40 Pulse Oximetry 99 04/26/24 23:40 Oxygen Delive
[2024-04-27 00:17] LABS: Basophils Absolute Auto 0.03 K/mm3 (0.00-0.10); Basophils Percent Auto 0.6 % (0.0-1.0); Eosinophils Absolute Auto 0.16 K/mm3 (0.02-0.50); Eosinophils Percent Auto 3.3 % (1.0-6.0); Hematocrit 32.9 % (35.0-49.0); Hemoglobin 10.8 g/dL (12.0-15.0); Immature Granulocyte Absolute 0.01 K/mm3 (0.00-0.00); Immature Granulocyte Percent A 0.2 % (0.0-0.0); Lymphocytes Absolute Auto 1.48 K/mm3 (1.10-4.50); Lymphocytes Percent Auto 30.6 % (18.0-42.0); Mean Corpuscular HGB Conc 32.8 g/dL (32-36); Mean Corpuscular Hemoglobin 27.5 pg (27.0-31.0); Mean Corpuscular Volume 83.7 fL (78.0-102.0); Mean Platelet Volume 9.7 fl (9.2-11.8); Monocytes Absolute Auto 0.64 K/mm3 (0.10-0.90); Monocytes Percent Auto 13.3 % (2.0-11.0); Neutrophils Absolute Auto 2.51 K/mm3 (1.70-7.20); Platelet Count Result 247 K/mm3 (150-420); Red Blood Count 3.93 M/mm3 (4.20-5.40); Red Cell Distribution Width 15.3 % (11.6-14.4); White Blood Count 4.8 K/mm3 (4.8-10.8)
[2024-04-27 00:36] LABS: Alanine Aminotransferase 18 U/L (14-59); Albumin Level 3.8 g/dL (3.4-5.0); Alkaline Phosphatase 105 U/L (46-116); Anion Gap 8 mmol/L (4-12); Aspartate Amino Transferase 12 U/L (15-37); Bilirubin,Total 0.4 mg/dL (0.00-1.00); Blood Urea Nitrogen 10 mg/dL (7-18); Carbon Dioxide 30 mmol/L (21-32); Chloride 105 mmol/L (98-108); Estimated CRCL calculation 65 ml/min; Estimated Glomerular Filt Rate > 60; Glucose 93 mg/dL (70-99); Osmolality Calculated 295 mOsm/kg (285-295); Potassium 3.9 mmol/L (3.5-5.1); Sodium 143 mmol/L (136-145); Total Protein 7.3 g/dL (6.4-8.2)
[2024-04-27] MEDS: MECLIZINE HCL 25 MG TABLET PO (00:46)
[2024-04-27 00:58] VITALS: BP 118/80; PULSE 74; RESP 18; TEMP 36.6; O2SAT 99
== END 2024-04-27 00:58 | disposition home or self-care (01) ==
PROVIDERS: Emergency Provider Family Medicine; PCP Family Medicine
DX: H81.10 Benign paroxysmal vertigo, unspecified ear (principal)
CPT/HCPCS: 36415; 80053; 85025; 99283; A9270

== ENCOUNTER 2024-05-06 13:00 | Outpatient (CLI) | payer OTHER, SELFPAY ==
--- NOTE | 2024-05-06 13:15 | PC.NURSE ---
Here for OP infusion of iron, given patient education on iron infusion
[2024-05-06 13:22] VITALS: BMI 20.8
[2024-05-06 13:24] VITALS: BP 104/62; PULSE 85; RESP 18; TEMP 36.3; O2SAT 95
[2024-05-06] MEDS: IRON SUCROSE COMPLEX 200 MG, IRON SUCROSE COMPLEX 100 MG in SODIUM CHLORIDE 0.9% IV 250 ML 125 MG IVPB (13:37)
--- NOTE | 2024-05-06 14:27 | PC.NURSE ---
tolerating infusion well, site clear
[2024-05-06 15:35] VITALS: BP 95/57; PULSE 78; RESP 18; O2SAT 95
--- NOTE | 2024-05-06 15:40 | PC.NURSE ---
discharge to home, education written provided on iron infusion given, no complaints upon discharge
== END 2024-05-06 13:01 | disposition home or self-care (01) ==
PROVIDERS: PCP Family Medicine; Visit Provider Registered Nurse
DX: D64.9 Anemia, unspecified (principal)
CPT/HCPCS: 96365; 96366; J1756; J7050

== ENCOUNTER 2024-05-21 10:54 | Outpatient (CLI) | payer OTHER, SELFPAY ==
[2024-05-21 11:16] VITALS: BP 115/81; PULSE 74; RESP 16; TEMP 36.4; O2SAT 100; BMI 44.5
[2024-05-21] MEDS: IRON SUCROSE COMPLEX 200 MG, IRON SUCROSE COMPLEX 100 MG in SODIUM CHLORIDE 0.9% IV 250 ML 125 MG IVPB (11:52)
== END 2024-05-21 10:55 | disposition home or self-care (01) ==
PROVIDERS: PCP Family Medicine; Visit Provider Family Medicine
DX: D64.9 Anemia, unspecified (principal)
CPT/HCPCS: 96365; 96366; J1756; J7050

== ENCOUNTER 2024-05-27 15:46 | Outpatient (CLI) | payer OTHER, SELFPAY ==
--- NOTE | ~2024-05-27 | CT_ITS ---
EXAMINATION: CT abdomen pelvis w con DATE: 05/27/2024 16:56 INDICATION: Acute abdominal pain. TECHNIQUE: Computed tomography (CT) of the abdomen and pelvis was performed with 100 mL Omnipaque 350 intravenous contrast. Automated exposure control and iterative reconstruction technique were employe d. The dose-length product was 181.53 mGy-cm. COMPARISON: Pelvis ultrasound 02/28/2024 FINDINGS: The visualized portions of the lung bases are clear without pneumonia or pleural effusion. The heart size is normal. No pericardial effusion. There are bilateral breast implants. The liver and spleen are normal. There are changes of cholecystectomy. The pancreas, adrenal glands, and right kid kenyetta are normal. There is is a 5 mm cyst in left kidney. There is a 3 mm stone in left kidney. There a re no dilated loops of bowel. There is a 3.6 x 6.5 x 3.3 cm mass in left adnexa. There are no patholo gically enlarged lymph nodes. There is no free intraperitoneal fluid. IMPRESSION: 1. 6.5 cm mass in the left adnexa, presumably new from the surgery on 04/16/2024. This finding is mos t likely a hemorrhagic cyst or peritoneal inclusion cyst. Consider ultrasound. Reviewed, dictated and finalized at location A. [facility] WORK[facility] IMPRESSION: 1. 6.5 cm mass in the left adnexa, presumably new from the surgery on 4. This finding is most likely a hemorrhagic cyst or peritoneal inclusion cyst. Consider ultrasound.
== END 2024-05-27 15:47 | disposition home or self-care (01) ==
PROVIDERS: PCP Registered Nurse; Visit Provider Family Medicine
DX: N83.292 Other ovarian cyst, left side (principal); R10.9 Unspecified abdominal pain
CPT/HCPCS: 74177; Q9967

== ENCOUNTER 2024-06-09 07:33 | Outpatient (CLI) | payer OTHER, SELFPAY ==
--- NOTE | ~2024-06-09 | US_ITS ---
EXAMINATION: US pelvic complete DATE: 06/09/2024 08:17 INDICATION: Pelvic pain in female. TECHNIQUE: Multiple transabdominal and transvaginal sonographic images of the pelvis were obtained. COMPARISON: CT abdomen and pelvis 05/27/2024, ultrasound 02/28/24 FINDINGS: TRANSABDOMINAL ULTRASOUND: The uterus is absent. There is physiologic free fluid in the pelvis. TRANSVAGINAL ULTRASOUND: The right ovary is absent. The left ovary measures 5.0 x 3.7 x 3.3 cm. There is a 2.9 cm mass of mixe d echogenicity in left ovary. There is normal vascular flow in left ovary. IMPRESSION: 1. 2.9 cm mass in left ovary, likely hemorrhagic cyst. 2. Absent uterus and right ovary. Reviewed, dictated and finalized at location A. [facility]
--- NOTE | ~2024-06-09 | US_ITS ---
Abdominal Sonogram: Real-time sonographic imaging of the abdomen was performed. Clinical History: Pain Findings: The liver appears mildly echogenic with no evidence of mass lesion or bile duct dilatation . Main portal vein demonstrates normal direction of flow. The spleen is normal in size without eviden ce of focal lesion. The gallbladder is absent, compatible prior cholecystectomy. The common bile juan t measures 6 mm. The visualized pancreas, aorta, and IVC are unremarkable. The right kidney measure s 10.3 cm in length and the left kidney measures 9.4 cm. There is no hydronephrosis or renal calculu s. 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 Impression: Probable mild fatty infiltration of the liver. Status post cholecystectomy. 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 Reviewed, dictated and finalized at [facility]. FACTURING OPERATIONS MANAGER Impression: Probable mild fatty infiltration of the liver. Status post cholecystectomy. 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
== END 2024-06-09 07:34 | disposition home or self-care (01) ==
LOC: CHSIMG 07:34
PROVIDERS: PCP Registered Nurse; Visit Provider Registered Nurse
DX: R10.2 Pelvic and perineal pain (principal); N83.9 Noninflammatory disorder of ovary, fallopian tube and broad ligament, unspecified; Z90.710 Acquired absence of both cervix and uterus; Z90.721 Acquired absence of ovaries, unilateral; Z90.49 Acquired absence of other specified parts of digestive tract
CPT/HCPCS: 76700; 76856

== ENCOUNTER 2024-07-02 11:22 | Outpatient (CLI) | payer OTHER, SELFPAY ==
[2024-07-02 12:18] LABS: SARS-CoV-2 RNA PCR Negative (Negative)
[2024-07-02 13:05] LABS: Influenza A QL RT-PCR Positive (Negative); Influenza B QL RT-PCR Negative (Negative); RSV RNA, RT-PCR Negative (Negative)
== END 2024-07-02 11:23 | disposition home or self-care (01) ==
LOC: CHSLAB 11:25
PROVIDERS: PCP Family Medicine; Visit Provider Family Medicine
DX: J01.90 Acute sinusitis, unspecified (principal); J10.1 Influenza due to other identified influenza virus with other respiratory manifestations
CPT/HCPCS: 87637

== ENCOUNTER 2024-08-22 10:56 | Outpatient (CLI) | payer OTHER, SELFPAY ==
--- OUTSIDE RECORDS SUMMARY | 2024-08-22 11:00 | XMS_ITS | Clinical Summary ---
Author Organization [facility] Address [address] [place] [address] Care Team Providers Care Hub Cutter Apprentice Name Role Phone Unavailable Primary Care Provider Unavailabl e Source Comments [facility],non-owned Affiliates and Associated Physician Practices is amultiple site organization consisting of ambulatory clinics and hospital sitesin [place], [place], [place] and [place]. This disclosure is being madepursuant to the Care Everywhere program and may not contain all information available regarding this patient. Last updated 18.[facility] [employer] Allergies Active Allergy Reactions Criticality Noted Date Comments Latex Itching 11/06/2022 Nitrofurantoin Unknown 11/06/2022 Medications * Be aware that medications may not be up to date on this document. Alwaysverify current medications with the patient. Medication Sig Dispensed Refills Start Date End Date Status pyridoxine (Vitamin B-6) 50 MG tablet Take 1 (one) tablet by mouth 2 times daily Active enoxaparin (Lovenox) 40 MG/0.4ML injection Inject 40 (forty) mg subcutaneously once daily Active folic acid (Folvite) 1 MG tablet Take 1 (one) tablet by mouth once daily Active Vit-DSS-Fe Fum-FA ( vitamin with iron) tabletIndications: Take 1 (one) tablet by mouth once daily Reasons: Active Doxylamine Succinate, Sleep, (UNISOM PO) Take 1 tablet by mouth at bedtime Active OXcarbazepine (Trileptal) 150 MG tablet Take 1 (one) tablet by mouth 2 times daily Active aspirin (Aspirin) 81 MG chew tablet Take 1 (one) tablet by mouth once daily Active propranolol (Inderal) 20 MG tablet Take 1 (one) tablet by mouth every 8 hours Active Active Problems Problem Noted Date Diagnosed Date 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 Social History Tobacco Use Types Packs/Day Years Used Date Smoking Tobacco: Never Assessed Sex and Gender Information Value Date Recorded Sex Assigned at Not on file Gender Identity Not on file Sexual Orientation Not on file Last Filed Vital Signs Vital Sign Reading Time Taken Comments Blood Pressure 116/71 11/16/2022 12:21 PM CDT Pulse 74 11/16/2022 12:21 PM CDT Temperature - - Respiratory Rate - - Oxygen Saturation - - Inhaled Oxygen Concentration - - Weight 52.3 kg (115 lb 3.2 oz) 11/07/2022 3:06 P M CDT Height 154.9 cm (5' 1 ) 11/07/2022 3:06 PM CDT Body Mass Index 21.77 11/07/2022 3:06 PM CDT Plan of Treatment Health Maintenance Due Date Last Done Comments HIV SCREENING 2009 HEPATITIS C SCREENING 07/08/2012 DTAP/TDAP/TD VACCINES (1 - Tdap) 2013 HEPATITIS B VACCINE (1 of 3 - 19+ 3-dose series) 2013 COVID-19 VACCINE (3 - 2023- season) 2024 07/25/2022, 05/03/2022 INFLUENZA VACCINE (#1) 2024 9, 04/07/2015, 04/25/2014, Additional history exists DEPRESSION SCREENING 07/08/2024 PAP SMEAR 05/11/2025 05/11/2022 ZOSTER VACCINE (1 of 2) 2044 HIB VACCINE Aged Out No longer eligi ble based on patient's age to complete this topic HPV VACCINE Aged Out No longer eligi ble based on patient's age to complete this topic MENINGOCOCCAL (Group B) VACCINE Aged Out No longer eligible based on patient's age to complete this topic MENINGOCOCCAL VACCINE Aged Out No jasmyn kathleen eligible based on patient's age to complete this topic PNEUMOCOCCAL VACCINE Aged Out No long er eligible based on patient's age to complete this topic Nilam Eckert Personal/Famil y Self 1995
--- OUTSIDE RECORDS SUMMARY | 2024-08-22 11:00 | XMS_ITS | Encounter Summary ---
Author Organization [facility] Address [address] [place] [address] Care Team Providers Care Combine Inspector Name Role Phone Casey Alvarado APNP Primary Care Provi luis George Osborne MD Primary Care Provider [phone] Devorah Hansen APRN, CLINICAL BUSINESS ANALYST-C Unavailable [phone] Roxie Higuera CAN FEEDER Unavailable [phone] None, Provider Primary Care Provider Unavaila ble George Osborne MD Primary Care Provider [phone] Devorah Thomas NP Primary Care Provider [phone] Gallito Caldwell MD Unavailable [phone] Oliver Allen APRN Unavailable + [phone] Wilda Savage NP Primary Care Provider [phone] Devorah Thomas NP Primary Care Provider [phone] Malou Frazier MD Primary Care Provider [phone] Vannesa Ma MD Primary Care Provider [phone] Encounter Details Date Type Department Care Team (Latest Contact Info) Description 03/20/2018 Abstract [facility] Luis Shultz MD Social History Tobacco Use Types Packs/Day Years Used Date Smoking Tobacco: Never Assessed Comments Unknown Sex and Gender Information Value Date Recorded Sex Assigned at Female 10/12/2022 9:41 PM CDT Legal Sex Female 8:59 PM NURSES SUPERVISOR Gender Identity Female 10/12/2022 9:41 PM CDT Sexual Orientation Straight 10/12/2022 9: 41 PM CDT documented as of this encounter Plan of Treatment Not on file documented as of this encounter Visit Diagnoses Not on filedocumented in this encounter Additional Health Concerns Infection Onset Date Last Indicated Resolved Time COVID-19 Rule Out 03/04/2020 03/04/2020 03/06/2020 11:10 AM CDT COVID-19 Rule Out 07/15/2020 07/15/2020 07/15/2020 8:54 AM NURSES SUPERVISOR COVID-19 Rule Out 07/15/2020 07/15/2020 07/17/2020 6:30 AM NURSES SUPERVISOR COVID-19 Rule Out 05/19/2021 05/19/2021 05/19/2021 8:36 PM NURSES SUPERVISOR COVID-19 Rule Out 07/12/2021 07/12/2021 07/12/2021 4:41 PM NURSES SUPERVISOR COVID-19 Rule Out 07/12/2021 07/12/2021 07/14/2021 7:22 PM NURSES SUPERVISOR COVID-19 Rule Out 09/11/2021 09/11/2021 09/11/2021 2:35 PM NURSES SUPERVISOR COVID-19 Rule Out 11/30/2021 11/30/2021 11/30/2021 11:54 AM CDT COVID-19 Rule Out 11/30/2021 11/30/2021 12/01/2021 1:54 PM CDT COVID-19 Rule Out 12/30/2021 12/30/2021 12/30/2021 2:27 PM CDT COVID-19 Rule Out 12/30/2021 12/30/2021 12/31/2021 6:15 PM CDT ESBL - Extended Spectrum Beta-lactamase Comment:01/02/23 urine (JJ) 01/02/2023 01/02/2023 documented as of this encounter Care Teams Combine Inspector Relationship Specialty Start Date End Date Casey Alvarado APNP PCP - General NURSE PRACTITIONER 05/21/18 10/23/18 George Osborne MD [address] [place] [address] PCP - General FAMILY PRACTICE 10/24/18 11/26/18 Katharine Taylor MD PCP - General 11/27/18 12/14/18 George Osborne MD [address] [place] [address] PCP - General FAMILY PRACTICE 12/15/18 02/17/19 Devorah Thomas NP PCP - General Nurse Practitioner Family 03/01/20 10/30/22 Wilda Savage NP [address] [place] [id number] PCP - General Nurse Practitioner Family 12/21/22 01/01/23 Devorah Thomas NP PCP - General Nurse Practitioner Family 10/31/22 12/20/22 Malou Frazier MD [address] [place] [address] PCP - General FAMILY PRACTICE 01/02/23 08/15/24 Vannesa Ma MD [address] [place] [address] PCP - General FAMILY PRACTICE 08/16/24 Devorah Hansen APRN, CLINICAL BUSINESS ANALYST-C [address] [place] [address] CARDIOVASCULAR DISEASE 10/24/18 9 Roxie Higuera FNP [address] [facility] [place] [id number] FAMILY PRACTICE 10/24/18 07/09/22 Gallito Caldwell MD [address] [place] [address] Consulting Physician INTERVENTIONAL CARDIOLOGY 07/10/22 Oliver Allen APRN [address] [place] [address] Nurse Practitioner NURSE PRACTITIONER 07/10/22 documented as of this encounter
--- OUTSIDE RECORDS SUMMARY | 2024-08-22 11:00 | XMS_ITS | Encounter Summary ---
Author Organization [facility] Address [facility] [place] [address] Care Team Providers Care Advertising Director Name Role Phone Casey Alvarado APNP Primary Care Provi luis George Osborne MD Primary Care Provider [phone] Devorah Hansen APRN, LIE DETECTOR OPERATOR-C Unavailable [phone] Roxie Higuera MANAGER FINANCIAL REPORTING Unavailable + [phone] None, Provider Primary Care Provider Unavaila ble George Osborne MD Primary Care Provider [phone] Devorah Thomas NP Primary Care Provider [phone] Gallito Caldwell MD Unavailable [phone] Oliver Allen APRN Unavailable [phone] Wilda Savage NP Primary Care Provider [phone] Devorah Thomas NP Primary Care Provider [phone] Malou Frazier MD Primary Care Provider [phone] Vannesa Ma MD Primary Care Provider [phone] Encounter Details Date Type Department Care Team (Late st Contact Info) Description 09/21/2017 Abstract [facility] [address] [place], [place] [id number] , Generic Conversion, Social History Tobacco Use Types Packs/Day Years Used Date Smoking Tobacco: Never Assessed Comments Unknown Sex and Gender Information Value Date Recorded Sex Assigned at Female 10/12/2022 9:41 PM CDT Legal Sex Female 8:59 PM DISTRICT SALES REPRESENTATIVE Gender Identity Female 10/12/2022 9:41 PM CDT [...] Rule Out 07/15/2020 07/15/2020 07/15/2020 8:54 AM DISTRICT SALES REPRESENTATIVE COVID-19 Rule Out 07/15/2020 07/15/2020 07/17/2020 6:30 AM DISTRICT SALES REPRESENTATIVE COVID-19 Rule Out 05/19/2021 05/19/2021 05/19/2021 8:36 PM DISTRICT SALES REPRESENTATIVE COVID-19 Rule Out 07/12/2021 07/12/2021 07/12/2021 4:41 PM DISTRICT SALES REPRESENTATIVE COVID-19 Rule Out 07/12/2021 07/12/2021 07/14/2021 7:22 PM DISTRICT SALES REPRESENTATIVE COVID-19 Rule Out 09/11/2021 09/11/2021 09/11/2021 2:35 PM DISTRICT SALES REPRESENTATIVE COVID-19 Rule Out 11/30/2021 11/30/2021 11/30/2021 11:54 AM CDT COVID-19 Rule Out 11/30/2021 11/30/2021 12/01/2021 1:54 PM CDT COVID-19 Rule Out 12/30/2021 12/30/2021 12/30/2021 2:27 PM CDT COVID-19 Rule Out 12/30/2021 12/30/2021 12/31/2021 6:15 PM CDT ESBL - Extended Spectrum Beta-lactamase Comment:01/02/23 urine (JJ) 01/02/2023 01/02/2023 documented as of this encounter Care Teams Advertising Director Relationship Specialty Start Date End Date Casey Alvarado APNP PCP - General NURSE PRACTITIONER 05/21/18 10/23/18 George Osborne MD [address] [place] [address] PCP - General FAMILY PRACTICE 10/24/18 11/26/18 Katharine Taylor MD PCP - General 11/27/18 12/14/18 George Osborne MD [facility] [place] [id number] PCP - General FAMILY PRACTICE 12/15/18 02/17/19 Devorah Thomas NP PCP - General Nurse Practitioner Family 03/01/20 10/30/22 Wilda Savage NP [address] [place] [address] PCP - General Nurse Practitioner Family 12/21/22 01/01/23 Devorah Thomas NP PCP - General Nurse Practitioner Family 10/31/22 12/20/22 Malou Frazier MD [facility] [place] [address] PCP - General FAMILY PRACTICE 01/02/23 08/15/24 Vannesa Ma MD [facility] [place] [address] PCP - General FAMILY PRACTICE 08/16/24 Devorah Hansen APRN, LIE DETECTOR OPERATOR-C [place] [address] CARDIOVASCULAR DISEASE 10/24/18 9 Roxie Higuera FNP [address] [place] [id number] FAMILY PRACTICE 10/24/18 07/09/22 Gallito Caldwell MD [address] [place] [address] Consulting Physician INTERVENTIONAL CARDIOLOGY 07/10/22 Oliver Allen APRN [address] [place] [address] [address] Nurse Practitioner NURSE PRACTITIONER 07/10/22 documented as of this encounter
--- OUTSIDE RECORDS SUMMARY | 2024-08-22 11:00 | XMS_ITS | Encounter Summary ---
Author Organization [facility] Address [address] [place] [address] Care Team Providers Care Functional Architect Name Role Phone Roxie Higuera SIEBEL ADMINISTRATOR Unavailable + [phone] None, Provider Primary Care Provider Unavaila George Jones MD Primary Care Provider [phone] Devorah Thomas DATAWAREHOUSE DEVELOPER Primary Care Provider [phone] Gallito Caldwell MD Unavailable [phone] Oliver Allen APRN Unavailable [phone] Wilda Savage NP Primary Care Provider [phone] Devorah Thomas DATAWAREHOUSE DEVELOPER Primary Care Provider [phone] Malou Frazier MD Primary Care Provider [phone] Vannesa Ma MD Primary Care Provider + [phone] Encounter Details Date Type Department Care Team (Late st Contact Info) Description 12/13/2018 Abstract [facility] [address] [place] [address] , Generic Conversion, Social History Tobacco Use Types Packs/Day Years Used Date Smoking Tobacco: Never Smokeless Tobacco: Never Alcohol Use Standard Drinks/Week Comments Yes 0 (1 standard drink = 0.6 oz pur e alcohol) occasional-social AUDIT-C Answer Date Recorded Frequency of Alcohol Consumption Never 06/26/2018 Average Number of Drinks Not on file 018 Frequency of Binge Drinking Not on file 06/08 Comments Yes Sex and Gender Information Value Date Recorded Sex Assigned at Female 10/12/2022 9:41 PM CDT Legal Sex Female 8:59 PM GRINDER CHIPPER Gender Identity Female 10/12/2022 9:41 PM CDT Sexual Orientation Straight 10/12/2022 9: 41 PM CDT documented as of this encounter Functional Status * RETIRED Are you deaf or do you have serious difficulty hearing Answer Date of Assessment Author Status No 11/27/2018 12:34 PM CDT Acti ve * RETIRED Are you blind or do you have serious difficulty seeing, even when wearing glasses? Answer Date of Assessment Author Status No 11/27/2018 12:34 PM CDT Acti ve * Do you have serious difficulty walking or climbing stairs? Answer Date of Assessment Author Status No 11/27/2018 12:34 PM CDT Sally Ramos RN Active * Do you have difficulty dressing or bathing? Answer Date of Assessment Author Status No 11/27/2018 12:34 PM HANNAHT Sally Ramos RN Active * Because of a physical, mental, or emotional condition, do you have difficulty doing errands alone such as visiting a doctor's office or shopping? Answer Date of Assessment Author Status No 11/27/2018 12:34 PM HANNAHT Sally Ramos RN Active documented as of this encounter Mental Status * Because of a physical, mental, or emotional condition, do you have serious difficulty concentrating, remembering, or making decisions? Answer Entry Date Author Status No 11/27/2018 12:34 PM HANNAHT Sally Ramos RN Active documented in this encounter Plan of Treatment Not on file documented as of this encounter Visit Diagnoses Not on filedocumented in this encounter Additional Health Concerns Infection Onset Date Last Indicated Resolved Time COVID-19 Rule Out 03/04/2020 03/04/2020 03/06/2020 11:10 AM CDT COVID-19 Rule Out 07/15/2020 07/15/2020 07/15/2020 8:54 AM GRINDER CHIPPER COVID-19 Rule Out 07/15/2020 07/15/2020 07/17/2020 6:30 AM GRINDER CHIPPER COVID-19 Rule Out 05/19/2021 05/19/2021 05/19/2021 8:36 PM GRINDER CHIPPER COVID-19 Rule Out 07/12/2021 07/12/2021 07/12/2021 4:41 PM GRINDER CHIPPER COVID-19 Rule Out 07/12/2021 07/12/2021 07/14/2021 7:22 PM GRINDER CHIPPER COVID-19 Rule Out 09/11/2021 09/11/2021 09/11/2021 2:35 PM GRINDER CHIPPER COVID-19 Rule Out 11/30/2021 11/30/2021 11/30/2021 11:54 AM CDT COVID-19 Rule Out 11/30/2021 11/30/2021 12/01/2021 1:54 PM CDT COVID-19 Rule Out 12/30/2021 12/30/2021 12/30/2021 2:27 PM CDT COVID-19 Rule Out 12/30/2021 12/30/2021 12/31/2021 6:15 PM CDT ESBL - Extended Spectrum Beta-lactamase Comment:01/02/23 urine (JJ) 01/02/2023 01/02/2023 documented as of this encounter Care Teams Functional Architect Relationship Specialty Start Date End Date None, Katharine, PCP - General 11/27/18 12/14/18 George Osborne MD [address] [place] [address] PCP - General FAMILY PRACTICE 12/15/18 02/17/19 Devorah Thomas NP [address] [place] [address] PCP - General Nurse Practitioner Family 03/01/20 10/30/22 Wilda Savage NP [address] [place] [address] [place] [address] PCP - General Nurse Practitioner Family 12/21/22 01/01/23 Devorah Thomas, ESME [address] [place] [address] PCP - General Nurse Practitioner Family 10/31/22 12/20/22 Malou Frazier MD [address] [place] [address] PCP - General FAMILY PRACTICE 01/02/23 08/15/24 Vannesa Ma MD [address] [place] [address] PCP - General FAMILY PRACTICE 08/16/24 Roxie Higuera FNP FAMILY PRACTICE 10/24/18 07/09/22 Gallito Caldwell MD [address] [place] [address] Consulting Physician INTERVENTIONAL CARDIOLOGY 07/10/22 Oliver Allen APRN [address] [facility] [address] [address] Nurse Practitioner NURSE PRACTITIONER 07/10/22 documented as of this encounter
--- OUTSIDE RECORDS SUMMARY | 2024-08-22 11:00 | XMS_ITS | Patient Health Summary ---
Author Organization [facility] Address [address] [place] [address] Care Team Providers Care Parking Lot Attendant Name Role Phone Unavailable Primary Care Provider Unavailabl e Note from [facility],non-owned Affiliates and Associated Physician Practices is amultiple site organization consisting of ambulatory clinics and hospital sitesin [place], [place], [place] and [place]. This disclosure is being madepursuant to the Care Everywhere program and may not contain all information available regarding this patient. Last updated 18.[facility] Allergies * Latex(Itching) * Nitrofurantoin(Unknown) Medications * Be aware that medications may not be up to date on this document. Alwaysverify current medications with the patient. * pyridoxine (Vitamin B-6) 50 MG tablet Take 1 (one) tablet by mouth 2 times daily * enoxaparin (Lovenox) 40 MG/0.4ML injection Inject 40 (forty) mg subcutaneously once daily * folic acid (Folvite) 1 MG tablet Take 1 (one) tablet by mouth once daily * Vit-DSS-Fe Fum-FA ( vitamin with iron) tablet Take 1 (one) tablet by mouth once daily Reasons: * Doxylamine Succinate, Sleep, (UNISOM PO) Take 1 tablet by mouth at bedtime * OXcarbazepine (Trileptal) 150 MG tablet Take 1 (one) tablet by mouth 2 times daily * aspirin (Aspirin) 81 MG chew tablet Take 1 (one) tablet by mouth once daily * propranolol (Inderal) 20 MG tablet Take 1 (one) tablet by mouth every 8 hours Active Problems Problem Noted Date Diagnosed Date [...] Mass Index 21.77 11/07/2022 3:06 PM CDT Procedures * BIOPHYSICAL PROFILE W NST(Performed 11/16/2022) Performed for Current shankar with 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, antepartum ([facility]), History of delivery, History of delivery, Nutcracker phenomenon of renal vein * SONOGRAM - COMPLETE(Performed 11/07/2022) Performed for Nutcracker phenomenon of renal vein, Hypotension, unspecified hypotension type, Hx ofpreterm delivery, currently ([facility]), Previous child with anomaly, antepartum ([facility]), Previousbaby with growth restriction, Supervision of high-risk of young multigravida ([facility]) Results * BIOPHYSICAL PROFILE W NST (11/16/2022 9:44 AM CDT) Anatomical Region Laterality Modality Other 11/16/2022 9:44 AM CDT Narrative 11/16/2022 1:02 PM CDT [facility] PHONE: FAX: Pat. Name: ODILIA AMARAL Pat. No: [id number] Study Date: 11/16/2022 9:44am , Age: 01 1995, 27 Pregnancies: 6, Para 1132 Height: 61 in Weight: 101 lb LMP: 03/17/2022 GA by LMP: 34w6d GA by Base: 34w6d LATIA: 12/22/2022 GA Selected: 34w6d (From [facility]) LATIA: 12/22/2022 Referring MD: Heraclio Wen MD Smoking Pipe Coater: Chelsi Hunter, RDMS, RDCS CPT4: [id number] BMI: 19.08 Hist/Ind: G1: @ 38 wks 2608 gm G4: C/S @ 36 wks 2126 gm limb abnormality G6: Maternal Nutcracker Syndrome, Low-risk cf-DNA Heart Rate: 124 bpm Amniotic Fluid Index: 23.1cm (07.9-24.9) Q1: 6.0cm Q2: 5.9cm Q3: 6.2cm Q4: 5.0cm Biophysical Profile: 04/16 Breathin Tone: 2 NST: 2 Movement: 2 AFV: 2 EVAL, PLACENTA Presentation: cephalic Placenta: right lateral Heart Rate: 124 bpm Amniotic Fluid Volume: normal DOPPLER Umbilical - Mid Cord S/D 2.68(1.69 - 3.60) PI 0.95 (0.60 - 1.18) Middle Cerebral Artery PSV 50.2cm/s PI 2.15 (1.48 - 2.65) Med PSV 50.8cm/s MoM 0.99(<1.5) Anatomy!Normal!Abnormal!Suboptimal!Prev. Seen!Comments Cranium ! ! ! ! x ! Mdl (CSP/Thal! ! ! ! x ! Ventricles ! ! ! ! x ! Choroid Plexu! ! ! ! x ! Cerebellum ! ! ! x ! ! Cisterna M. ! ! ! x ! ! Nuchal Fold ! ! ! x ! ! Orbits ! ! ! x ! ! Profile ! ! ! ! x ! Nasal Bone ! ! ! ! x ! Lip ! ! ! ! x ! Spine ! ! ! ! x ! Lungs ! ! ! ! x ! 4 Chamber Hea! ! ! ! x ! LVOT ! ! ! ! x ! RVOT ! ! ! ! x ! 3 Vessel View! ! ! ! x ! 3 Vessel Trac! ! ! ! x ! Cross-over ! ! ! ! x ! Ductal Arch ! ! ! ! x ! Aortic Arch ! ! ! ! x ! Caval View ! ! ! ! x ! Situs ! ! ! ! x ! Diaphragm ! ! ! ! x ! Stomach ! ! ! ! x ! Bowel ! ! ! ! x ! Kidneys ! ! ! ! x ! Bladder ! ! ! ! x ! 3 Vessel Cord! ! ! ! x ! Cord In! ! ! ! x ! Upper Extremi! ! ! ! x ! Hands ! ! ! ! x ! Lower Extremi! ! ! ! x ! Feet ! ! ! ! x ! External Phuong! ! ! ! x ! Placental Cor! ! ! ! x ! CLINICAL SUMMARY A single fetus is seen in cephalic presentation. The amniotic fluid volume is within normal limits. The FHR baseline was 140 bpm during today's reactive NST. The FHR variability was moderate. The baseline is difficult to define and may change. There appear to be some uniform shaped decels that may be late decelerations 9:37 mariama, 9:41mark, and 9:54 mariama. IMPRESSION: Single, live, intrauterine at 34w6d Amniotic fluid volume: normal Biophysical profile: 10 with late decelerations present Dopplers studies: Reassuring RECOMMEND: Continue twice weekly testing and Doppler studies movement precautions Repeat growth in 2 weeks Thanks for allowing us the opportunity to care for your patient Roland Butts MD <Electronic Signature> 11/16/2022 01:02pm Heraclio Wen MD [facility] ORDERABLES * SONOGRAM - COMPLETE (11/07/2022 1:11 PM CDT) Anatomical Region Laterality Modality Other 11/07/2022 1:11 PM CDT Narrative 11/07/2022 4:30 PM CDT [facility] PHONE: FAX: Pat. Name: ODILIA AMARAL Pat. No: [id number] Study Date: 11/07/2022 1:11pm , Age: 01 1995, 27 Pregnancies: 6, Para 1132 Height: 61 in Weight: 101 lb LMP: 03/17/2022 GA by LMP: 33w4d GA by US: 32w2d LATIA: 12/31/2022 GA Selected: 33w4d (LMP) LATIA: 12/22/2022 Referring MD: Heraclio Wen MD Smoking Pipe Coater: Arlin Valenzuela RDMS CPT4: [id number] BMI: 19.08 Hist/Ind: G1: @ 38 wks 2608 gm G4: C/S @ 36 wks 2126 gm limb abnormality G6: Maternal Nutcracker Syndrome, Low-risk cf-DNA MEASUREMENTS & AGE GROWTH EVALUATION Measurement GA Range Srce %for GA Ratios ----- ---- ------- BPD 8.1 cm 32w5d (79m1d-39u6s) Hadl BPD 21% FL/BPD 0.75 (0.71 - 0.87) HC 30.0 cm 33w1d (40c4n-92n2z) Hadl HC 8% FL/AC 0.22 (0.20 - 0.24) AC 27.7 cm 31w6d (96g3r-65g7e) Hadl AC 9% HC/AC 1.08 (0.95 - 1.13) FL 6.1 cm 31w4d (32h0l-09q0k) Hadl FL 4% CI 0.77 (0.70 - 0.86) HL 5.0 cm 29w3d (93t0l-55w3u) Peter HL <05 GA for sonogram 32w2d (81h3q-52k8d) Weight Estimate: based on (BPD,HC,AC,FL) Avg Weight: 1874 gm (1600-2148gm) Had : 4lbs, 2oz Normal: 2291 gm (1719-2864gm) Had Wt% 8% for 33w4d Heart Rate: 167 bpm Amniotic Fluid Index: 16.3cm (08.2-24.7) Q1: 5.2cm Q2: 3.2cm Q3: 2.6cm Q4: 5.3cm Biophysical Profile: 02/12 Breathin Tone: 2 Movement: 2 AFV: 2 EVAL, PLACENTA Presentation: cephalic Umbilical Cord: 3 Vessels Placenta: right lateral Heart Rate: 167 bpm Amniotic Fluid Volume: normal DOPPLER Umbilical - Mid Cord S/D 3.70(1.75 - 3.72) PI 1.20 (0.63 - 1.21) Middle Cerebral Artery PSV 60.4cm/s PI 2.29 (1.55 - 2.77) Med PSV 47.9cm/s MoM 1.26(<1.5) Anatomy!Normal!Abnormal!Suboptimal!Prev. Seen!Comments Cranium ! x ! ! ! ! Mdl (CSP/Thal! x ! ! ! ! Ventricles ! x ! ! ! ! Choroid Plexu! x ! ! ! ! Cerebellum ! ! ! x ! ! Cisterna M. ! ! ! x ! ! Orbits ! ! ! x ! ! Profile ! x ! ! ! ! Nasal Bone ! x ! ! ! ! Lip ! x ! ! ! ! Spine ! x ! ! ! ! Lungs ! x ! ! ! ! 4 Chamber Hea! x ! ! ! ! LVOT ! x ! ! ! ! RVOT ! x ! ! ! ! 3 Vessel View! x ! ! ! ! 3 Vessel Trac! x ! ! ! ! Cross-over ! x ! ! ! ! Ductal Arch ! x ! ! ! ! Aortic Arch ! x ! ! ! ! Caval View ! x ! ! ! ! Situs ! x ! ! ! ! Diaphragm ! x ! ! ! ! Stomach ! x ! ! ! ! Bowel ! x ! ! ! ! Kidneys ! x ! ! ! ! Bladder ! x ! ! ! ! 3 Vessel Cord! x ! ! ! ! Cord In! x ! ! ! ! Upper Extremi! x ! ! ! ! Hands ! x ! ! ! ! Lower Extremi! x ! ! ! ! Feet ! x ! ! ! ! External Phuong! x ! ! ! !Female Placental Cor! x ! ! ! ! CLINICAL SUMMARY ASSESSMENT * Shankar IUP at 33 weeks by stated EDC from LMP * Referred to [facility] for consult & obstetrical U/S secondary to: - Nutcracker syndrome (NS) * Today's ultrasound (U/S) findings: - growth is 8th% - Amniotic fluid volume appears normal - Placental location appears normal - Comprehensive anatomic survey appears normal, but is incomplete - Umbilical artery (UA) Doppler: normal end-diastolic blood flow - Middle cerebral artery (MCA) Doppler: no evidence of anemia or brain sparing - Biophysical profile (BPP) is normal (02/12) PAST MEDICAL & OBSTETRICAL HISTORY * Medications: vitamins & see below * Past Medical History: - No CHTN, no DM, no thyroidopathy, no VTE - Bipolar, on Trileptal - 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 - On low-dose aspirin & Lovenox 40 mg/day - Her symptoms have worsened during - Her symptoms occur randomly (not associated with specific activity) - Describes hot flashes, dizziness, visual changes, vomiting: >= 12 episodes last week - On some occasions experiences loss of consciousness (LOC): 2-3 episodes last week - Pre- symtoms were alleviated with propranolol (Rx by [employer]) - She stopped propranolol when * Social History: denies ethanol, tobacco, drugs * Past Surgical History: breast augmentation, appendectomy, cholecystectomy, knee * Past Obstetrical History: 1) @ 38 wks 2608 gm 2) SAB @ 7 wks 3) SAB @ 5 wks 4) C/S @ 36 wks 2126 gm ICP, breech (no PTL) Baby had limb defects, amniocentesis & post-delivery genetic testing reportedly normal 5) SAB @ 6 wks 6) Current - COVID-19 + Jun-2022 - A cf-DNA non-invasive screen (NIPS) was low-risk for aneuploidy - Pruritis developed 30 weeks * Physical Examamination: BP = 111/74 mmHg, P = 79 bpm * Laboratory Data (Oct-2022): Hct 33%, creatinine 0.6 mg/dL, Proteinuria 1+ COUNSELING & RECOMMENDATIONS * 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 - Compression leads to venous hypertension - Often aggravated by physical activity - Signs & symptoms may include: - Both microscopic & gross hematuria - Orthostatic proteinuria & orthostatic intolerance - Hematuria usually asymptomatic but may be associated with left flank pain - Pelvic venous congestion syndrome & chronic fatigue syndrome - Therapies described include: - Stent placement in the left renal vein - Transposition of the superior mesenteric artery or left renal vein - Autotransplantation of the left kidney - A PubMed review (November-2022) yielded little in -related insights - Watch for possible hematuria, proteinuria, and anemia (and other underlying causes) - One source opined may widen aortic diameter, worsening symptoms - One source advised anticoagulation if S/P stent placement - Delivery timing recommendations for NS are lacking * Delivery timing for ICP per the current ACOG+SMFM guidelines: - The 2020 ACOG CO-831: TSBA < 100 micromol/L @ 36w0d - 39w0d - The 2020 ACOG CO-831: TSBA >= 100 micromol/L @ 36w0d - The 2020 SMFM CS-53: TSBA >= 100 micromol/L with any of the following @ 34-36 weeks - Excruciating pruritus unrelieved with pharmacotherapy - Prior history of IUFD < 36 weeks due to ICP - Hepatic disease with worsening hepatic function * Considering her medical history & risk factors above, I would advise: - Check TSBA & LFTs ROMERO to R/O intrahepatic cholestasis of (ICP) - She c/o knots developing in lower extremities R>L during - Likely varicosities (cannot ascertain via telemedicine today) - Would order lower extremity Dopplers if DVT cannot be excluded at OB visit tomorrow - Recommendations specific to NS: - We discussed R/B of starting propranolol & she declines - We discussed R/B of hospitalization for LOC episodes & she declines - Continue support hose & active PO hydration - Please forward 2019 C/S Op Report to determine indications 36 wk delivery - If no ICP, will re-evaluate @ 36 weeks to discuss delivery timing - If she has ICP, would plan to deliver in the 36th week - Start 1X-weekly testing (BPP + CAMPBELL + Dopplers) this week - Next week add 2X-weekly NSTs - Follow-up U/S for growth & development @ 36 weeks COMMENTS * Thank you very much for requesting [facility] participation in her obstetrical care * Findings were explained & questions were addressed & precautions were given * U/S does not detect all structural & functional maternal- abnormalities * Telemedicine services were performed for this U/S examination & [facility] consultation - Patient's identity was confirmed at the [facility] office - Appropriateness of the telehealth consult was confirmed - Informed consent for telemedicine services was obtained & scanned into EMR - Modality was secure interactive audio-video session using [employer] - Patient site location was [facility] - Patient site nurse presenter was Carolyn Vickers - Distant site provider was Tj Greer MD & location was home office - Consult = 60 minutes, >50% involving [id number] counseling & coordination of care Tj Greer MD <Electronic Signature> 11/07/2022 04:30pm Heraclio Wen MD [facility] ORDERABLES
--- OUTSIDE RECORDS SUMMARY | 2024-08-22 11:00 | XMS_ITS | Referral Summary ---
Author Organization [facility] Address [address] [place] [address] Care Team Providers Care Cell Tuber Hand Name Role Phone Unavailable Primary Care Provider Unavailabl e Source Comments [facility],non-owned Affiliates and Associated Physician Practices is amultiple site organization consisting of ambulatory clinics and hospital sitesin [place], [place], [place] and [place]. This disclosure is being madepursuant to the Care Everywhere program and may not contain all information available regarding this patient. Last updated 18.[facility] House Party Allergies Active Allergy Reactions Criticality Noted Date [...] 11/07/2022 3:06 PM CDT Plan of Treatment Not on file Nliam Eckert Personal/Famil y Self 1995
--- OUTSIDE RECORDS SUMMARY | 2024-08-22 11:00 | XMS_ITS | Clinical Summary ---
Author Organization [facility] Address [address] [place] [address] Care Team Providers Care Safety Instructor Name Role Phone Gallito Caldwell MD Unavailable [phone] Oliver Allen APRN Unavailable [phone] Vannesa Ma MD Primary Care Provider + [phone] Allergies Active Allergy Reactions Criticality Noted Date Comments Latex Rash Low 03/25/2018 Okay for patient to eat bananas- per patient. Nitrofurantoin Nausea and Vomiting 12/24/2018 Medications docusate sodium (COLACE) 50 MG capsule Take by mouth 2 (two) times daily. Active ibuprofen (MOTRIN) 600 MG tablet Take 1 tablet (600 mg total) by mouth every 6 (six) hours as needed for Pain. Active busPIRone (BUSPAR) 15 MG tablet Take 1 tablet (15 mg total) by mouth 3 (three) times daily. Active risperiDONE (RISPERDAL) 1 MG tablet Take 1 tablet (1 mg total) by mouth 2 (two) times daily. Doesn't know the dose Active naproxen EC (EC NAPROSYN) 500 MG tablet Take 1 tablet (500 mg total) by mouth 2 (two) times daily with meals for 14 days. 28 tablet 08/16/2024 5 Active Active Problems Problem Noted Date Diagnosed Date 29 weeks gestation of ([facility]) 2022 Hypokalemia 10/13/2022 Acute sinusitis 10/13/2022 Nausea and vomiting in ([facility]) 10/13 Nutcracker phenomenon of renal vein 07/11/2022 Dysfunction of both eustachian tubes 09/29/2020 Overview (09/29/2020): Bilateral ear pain for 1 week. +sinus drainage. No presence of fever. Has not been using flonase, zyrtec, or singulair that was previously prescribed. Denies cough and body aches. Assessment & Plan (09/29/2020 8:50 AM CDT): Re-start flonase, zyrtec, and singulair. Follow up if symptoms are not improving or getting worse. Peptic ulcer symptoms 08/03/2019 Overview (08/25/2019): 08/24/2019 Patient has been evaluated by Dr. Tierney and will be scheduled for a CT scan of abd. Niall does not believe her pain is r/t GI condition, but feels it is likely r/t hx of CS. Possibly EGD in the future if CT negative. Currently she is eliminating things from her diet as well to see if this helps abd sx. 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 Was started on sertraline shortly before being seen with c/o abd pain, tried lower dose and then DC of sertraline which did not improve pain. CBC, CMP, Amylase and Lipase negative in April 2019/ Started on omeprazole 40mg daily which improved abd pain and nausea some, but pain is daily again. Does not matter if she has eaten or not. Feels nauseous. Has tried diet changes, avoiding spicy, greasy foods--no improvement. Has been trying protein drinks to maintain/gain weight. She continues to lose weight. No V/D. Pain is lima-umbilical to epigastric area. She has a hx of roya and CS. No periods d/t , also has implanon and took test last week that was negative. Assessment & Plan (08/03/2019 11:23 AM FASHION DESIGNER): Would like her to resume omeprazole and add famotidine at night. Discussed status and that famotidine is deemed the most acceptable and safe to use with it's low RID % We will also refer to Dr. Tierney for further evaluation and have scheduled an appt for 08/18/2019. Anxiety and depression 08/03/2019 Overview (08/20/2022): Aug Has been in and out of IB program. Struggling with anxiety and making her pass out. . Having relationship stress- actually getting . Thinks she is sleeping ok. On Trileptal 300mg BID. Cries a lot. Aug Does not feel that sertraline is helping anymore. Had a few days where she didn't get out of bed, even kept her oldest child out of school because she didn't want to get up. Is tearful, cannot focus on her school work. She is , is 8 months old and eating table foods as well No SI/HI 08/03/2019 On sertraline 50mg daily. Feels it helps some. Has a lot going on at home. Discussed increasing dose, she is agreeable. No SI/HI. She has been able to sleep normally. Assessment & Plan (08/20/2022 12:00 PM FASHION DESIGNER): Discussed getting back in touch with IB. Will increase trileptal to 600mg BID. Discussed starting seroquel vs SSRI in . Patient is ok with starting seroquel. Assessment & Plan (08/25/2019 1:31 PM FASHION DESIGNER): Will switch to paxil. Assessment & Plan (08/03/2019 1:05 PM FASHION DESIGNER): Will increase sertraline to 75mg daily. Pt will consider counseling. Migraine without status migr ainosus, not intractable, unspecified migraine type 02/18/2019 Overview (08/03/2019): On butalbital prn for migraines, hasn't needed the medication recently. Uses tylenol when possible to avoid NSAIDs Resolved Problems Problem Noted Date Diagnosed Date Resolved Date Tachycardia, unspecified 07/11/202202/2023 Syncope, unspecified syncope type 07/11/2022 10/13/2022 Abnormal EKG 07/11/2022 10/13/2022 Aftercare following surgery 06/07/2021 10/13/2022 MCL sprain of right knee 04/25/202102/2023 Rupture of anterior cruciate ligament of right knee, subsequent encounter 04/25/2021 023 Malignant neoplasm of exocer vix ([facility]) 08/25/2019 10/13/2022 Overview (08/25/2019): Dx in 2019, she is seeing Dr. Osborne and also regularly sees Dr. vEelyn Rush Currently they are monitoring cervix for change, no intervention planned at this time She has the implanon to avoid and has tolerated this device well for over 7 months. She denies concerns today and vu of teaching presenter to her. Breast feeding status of mother ([facility]) 08/03/2019 03/31/2021 Overview (08/25/2019): 8 mo old son. Exclusively breast feeding. Pain at surgical incision 02/19/2019 depression 02/18/20192019 H/O section 02/18/2019 020 Cholestasis during in third trimester ([facility]) 12/24/2018 08/03/2019 Influenza 06/26/2018 08/03/2019 Influenza A 06/26/2018 08/03/2019 Encounters Date Type Department Care Team Description 08/16/2024 1:19 PM FASHION DESIGNER - 08/16/2024 5:30 PM FASHION DESIGNER [facility] [address] [place] [address] Jovanni Orozco DO Abdominal Pain Discharge Disposition: Home or Self Care (Routine Discharge) 08/16/2024 Travel from Last 3 Months Immunizations Name Administration Dates Next Due Dtap 03/25/2017,02/08/2000 Dtap (Generic) 03/25/2017 Dtp 01/16/1995,1994,1994 Dtp/Hib 08/09/1995 Flucelvax 2 YRS+ (Multi-Dose Vial) 08/13/2018 H1N1 2009 Influenza Vaccine 04/28/2009 H1N1 Injectable 2009 Influenza 04/28/2009 HPV4 (Gardasil) 07/19/2014 Hepatitis B 04/16/1995,1994,1994 Hepatitis B Pediatric 04/16/1995,1994,1994 Hib 01/16/1995,1994,1994 Hib (Generic) 01/16/1995,1994,1994 Influenza (Generic) 04/07/2015, 4,04/20/2014, 012 Influenza Adult (Generic) 08/13/2018 MMR 02/08/2000,08/09/1995 Opv 01/16/1995,1994,1994 PFIZER COVID-19 (LAWS CAP), MRNA, LNP-S, PF, 30 MCG/0.3 ML ZEN-SUCROSE, IM 05/03/2022 Polio IPV (Ipol) 02/08/2000 Polio Opv (Generic) 01/16/1995,1994,1994 Tdap (Adacel) 11/20/2018,06/03/2014 Family History Medical History Relation Comments No Known Problems Brother Defects Daughter No Known Problems Mother No Known Problems Sister born without legs Son Relation Status Comments Brother Alive Daughter Alive Left ventricular heart defect Mother Alive Sister Alive Son Alive Social History Tobacco Use Types Packs/Day Years Used Date Smoking Tobacco: Never Passive Smoke Exposure: Never Smokeless Tobacco: Never Tobacco Cessation:Counseling Given: Not Answered Alcohol Use Standard Drinks/Week Comments Not Currently 0 (1 standard drink = 0.6 oz pur e alcohol) occasional-social Humiliation, Afraid, Rape, and Kick questionnair e Answer Date Recorded Within the last year, have y ou been afraid of your partner or ex-partner? No 11/16/2022 Within the last year, have y ou been humiliated or emotionally abused in other ways by your partner or ex-partner? No Within the last year, have y ou been kicked, hit, slapped, or otherwise physically hurt by your partner or ex-partner? No 11/16/2022 Within the last year, have y ou been raped or forced to have any kind of sexual activity by your partner or ex-partner? No 11/16/2022 Social Connection and Isolat ion Panel [NHANES] Answer Date Recorded In a typical week, how many times do you talk on the phone with family, friends, or neighbors? More than three times a week 11/16/2022 How often do you get togethe r with friends or relatives? More than three times a week 11/16/2022 How often do you attend chur ch or mu-ism services? Never 11/16/2022 Do you belong to any clubs o r organizations such as oriental orthodox groups, unions, fraternal or athletic groups, or school groups? No 11/16/2022 How often do you attend meet ings of the clubs or organizations you belong to? Never 11/16/2022 Are you , , di vorced, , never , or living with a partner? 11/16/2022 AUDIT-C Answer Date Recorded Q1: How often do you have a drink containing alcohol? Never 11/16/2022 Q2: How many drinks containi ng alcohol do you have on a typical day when you are drinking? Patient does not drink Q3: How often do you have si x or more drinks on one occasion? Never 11/16/2022 Overall Financial Resource Strain (CARDIA) Answe r Date Recorded How hard is it for you to pa y for the very basics like food, housing, medical care, and heating? Not hard at all 11/16/2022 PHQ-2 Answer Date Recorded Patient Health Questionnaire-2 Score 6 08/20/2022 [facility] - Occupational Stress Questionnaire Answer Date Recorded Do you feel stress - tense, restless, nervous, or anxious, or unable to sleep at night because your mind is troubled all the time - these days? Not at all 11/16/2022 Exercise Vital Sign Answer Date Recorde d On average, how many days pe r week do you engage in moderate to strenuous exercise (like a brisk walk)? 3 days 11/16/2022 On average, how many minutes do you engage in exercise at this level? 30 min 11/16/2022 Hunger Vital Sign Answer Date Recorded Within the past 12 months, y ou worried that your food would run out before you got the money to buy more. Never true 11/17/19 23 Within the past 12 months, t he food you bought just didn't last and you didn't have money to get more. Never true 11/16/2022 PRAPARE - Transportation Answer Date Re corded In the past 12 months, has l ack of transportation kept you from medical appointments or from getting medications? No 11/05 In the past 12 months, has l ack of transportation kept you from meetings, work, or from getting things needed for daily living? No 11/16/2022 Housing Stability Vital Sign Answer Ugo e Recorded In the last 12 months, was t here a time when you were not able to pay the mortgage or rent on time? No 11/16/2022 In the last 12 months, how many places have you lived? 2 11/16/2022 In the last 12 months, was t here a time when you did not have a steady place to sleep or slept in a half-way (including now)? No 11/16/2022 Depression Answer Date Recor ded Last EPDS Total Score 15 12/21/2019 Last EPDS Self Harm Result 12/20 Comments No Sex and Gender Information Value Date Recorded Sex Assigned at Female 10/12/2022 9:41 PM CDT Legal Sex Female 8:59 PM FASHION DESIGNER Gender Identity Female 10/12/2022 9:41 PM CDT Sexual Orientation Straight 10/12/2022 9: 41 PM CDT Last Filed Vital Signs Vital Sign Reading Time Taken Comments Blood Pressure 121/89 08/16/2024 5:30 PM FASHION DESIGNER Pulse 78 08/16/2024 1:22 PM FASHION DESIGNER Temperature 36.4 C (97.6 F) 08/16/2024 1:22 PM FASHION DESIGNER Respiratory Rate 15 08/16/2024 1:22 PM FASHION DESIGNER Oxygen Saturation 99% 08/16/2024 5:30 PM FASHION DESIGNER Inhaled Oxygen Concentration - - Weight 49.9 kg (110 lb) 08/16/2024 1:22 PM FASHION DESIGNER Height 154.9 cm (5' 1 ) 08/16/2024 1:22 PM FASHION DESIGNER Body Mass Index 20.78 08/16/2024 1:22 PM FASHION DESIGNER Plan of Treatment Health Maintenance Due Date Last Done Comments Annual Physical 1997 HPV Vaccines (2 - 3-dose series) 08/16/2014 07/19/2014 Cervical Cancer Screening Pap Smear (Age 30 to 64) Every 3 Years 01/18/2019 01/19/2016, 01/27/2015 COVID-19 Vaccine ( season) 2024 07/25/2022, 05/03/2022 Influenza Adult (#1) 2024 08/13/2018, 08/13/2018, 04/07/2015, Additional history exists PHQ-2 (Physician [place]) 07/08/2024 Cervical Cancer Screening Pap with HPV Testing (Age 30 to 64) Every 5 Years 2024 01/19/2016, 01/27/2015 Cervical Cancer Screening with HPV 2024 DTaP, Tdap and Td Vaccines (6 - Td or Tdap) 11/20/2028 11/20/2018, 03/25/2017, 03/25/2017, Additional history exists Hepatitis B Vaccines Completed 04/16/1995, 04/16/1995, 1994, Additional history exists Hepatitis C Completed 05/11/2022, 02/2022, 02/02/2021 Meningococcal B Vaccine Aged Out No l onger eligible based on patient's age to complete this topic Meningococcal Vaccine Aged Out No jasmyn kathleen eligible based on patient's age to complete this topic Pneumococcal Vaccine: Pediatrics (0 to 5 Years) and At-Risk Patients (6 to 64 Years) Aged Out No longer eligible based on patient's age to complete this topic RSV Immunizations Under 20 Months Aged Out No longer eligible based on patient's age to complete this topic Medical Devices Implanted Type Area Jewelry Casting Model Maker Apprentice Device Identifier Shelf Expiration Date Model / Serial / Lot Implant Tightrope Abs Button Round 11mm Concave [employer] - [id number] Implanted:Qty: 1 on 05/22/2021 by Sagar Syed MD at [facility] Right: Knee [employer] [id number] 02/04/2026 [id number] -3 / / [id number] Tight Rope@ 11 Alivia Luxlancamila Open Implanted:Qty: 1 on 05/22/2021 by Sagar Syed MD at [facility] Right: Knee [id number] 04/06/2026 [id number]- 21 / / [id number] Allograph Graft Ink Convenience Pack Implanted:Qty: 1 on 05/22/2021 by Sagar Syed MD at [facility] Right: Knee [id number] 09/04/2025 [id number] CP / / [id number] Implant System, Tight Rope 11btb With Attatched Needle Recon With Fiber Tape Ib Flipcutter And Fiber Stick Implanted:Qty: 1 on 05/22/2021 by Sagar Syed MD at [facility] Right: Knee [id number] 01/04/2025 [id number] IB-FC3 / / [id number] Biocomposite Knotless Swivelock [place] Implanted:Qty: 1 on 05/22/2021 by Sagar Syed MD at [facility] Right: Knee [id number] 03/07/2025 [id number] C / / [id number] Tightrope 11 Abs, Implant, Open Implanted:Qty: 1 on 05/22/2021 by Sagar Syed MD at [facility] Right: Knee [id number] 04/06/2026 [id number] / [id number] Allowash Xg Sterilized Allograft Bio Implants Implanted:Qty: 1 on 05/22/2021 by Sagar Syed MD at [facility] Right: Knee [id number] 04/12/2024 [facility] / [id number] / Procedures Procedure Name Priority Date/Time Associated Diagnosis Comments CT ABD+PEL W CON STAT 08/16/2024 3:50 PM FASHION DESIGNER TRICHOMONAS ANTIGEN STAT 08/16/2024 3 :37 PM FASHION DESIGNER CULTURE, GENITAL W/ GRAM STAIN STAT 08/16/2024 3:37 PM FASHION DESIGNER CHLAMYDIA GC RNA STAT 08/16/2024 3:37 PM FASHION DESIGNER HCG QUANT (SERUM)-CHORIONIC GONADOTROPIN STAT 08/16/2024 2:20 PM FASHION DESIGNER PROLACTIN STAT 08/16/2024 2:20 PM FASHION DESIGNER LH, LUTEINIZING HORMONE STAT 08/16/2024 2:20 PM FASHION DESIGNER FSH, FOLLICLE STIM HORMONE STAT 08/16/2024 2:20 PM FASHION DESIGNER LACTIC ACID W REFLEX (SEPSIS) STAT 08/16/2024 2:20 PM FASHION DESIGNER PARTIAL THROMBOPLASTIN TIME,PTT STAT 08/16/2024 2:20 PM FASHION DESIGNER PROTHROMBIN TIME, VENOUS STAT 08/16/2024 2:20 PM FASHION DESIGNER COMPREHENSIVE METABOLIC PANEL STAT 08/16/2024 2:20 PM FASHION DESIGNER CBC W/DIFF AUTOMATED STAT 08/16/2024 2:20 PM FASHION DESIGNER HC URINALYSIS AUTO W/MICRO STAT 08/16/2024 2:15 PM FASHION DESIGNER HEPATITIS C ANTIBODY Routine 05/11/2022 3:54 PM CDT Supervision of high risk , unspecified, unspecified trimester (HHS/HCC) from Last 3 Months or Most Recently Relevant to Health Maintenance Results * CT ABD+PEL W IV CON ONLY (08/16/2024 3:50 PM FASHION DESIGNER) Anatomical Region Laterality Modality Abdomen Computed Tomogra phy 08/16/2024 3:52 PM FASHION DESIGNER Impressions 08/16/2024 3:59 PM FASHION DESIGNER IMPRESSION: 1. No acute abnormality identified. 2. Nonobstructive left nephrolithiasis. 3. Left ovarian cyst, 2.8 cm. 4. Status post cholecystectomy with mild stable bile duct dilatation. Referred By: Interpreted By: Tian Soliz MD, 08/16/2024 3:52 PM Narrative 08/16/2024 3:59 PM FASHION DESIGNER [address] [place] [address] EXAMINATION: CT ABD+PEL W CON CLINICAL HISTORY: Pain, left lower quadrant COMPARISON: 01/19/2018 DATE/TIME: 08/16/2024 3:42 PM TECHNIQUE: Multiplanar CT images of the abdomen and pelvis were obtained. IV contrast: uneventful intravenous administration of 80 mL Isovue 370. Oral contrast: None. A dose lowering technique was used for this procedure, which may include, but is not limited to, dose reduction technique, automated exposure control, the use of iterative reconstruction, and ALARA (As Low As Reasonably Achievable) / Image Gently techniques. FINDINGS: Bilateral breast implants are partially included. Liver is negative. Gallbladder is absent. Mild dilatation common bile duct, stable and nonspecific after cholecystectomy. No pancreatic duct dilatation. Pancreas is negative. Spleen is negative. Adrenal glands are negative. There at least 2 tiny noncalcified stones in the left kidney, the larger measuring 3 mm. No obstructive stone or hydronephrosis. There is a tiny low-density left renal lesion, too small to characterize. Kidneys are otherwise negative. There are calcified pelvic phleboliths. Abdominal aorta is normal caliber. Hysterectomy. Right ovary and appendix are not visualized and may be surgically absent. There is a left adnexal cyst likely ovarian origin measuring 2.8 x 2.8 x 2.6 cm. No free air or fluid. No bowel obstruction. No bowel wall thickening. No evidence of diverticulosis or diverticulitis. There is a moderate to large amount stool throughout colon. No acute osseous abnormality. Procedure Note Tian Soliz MD - 08/16/[address] [place] [address] EXAMINATION: CT ABD+PEL W CON CLINICAL HISTORY: Pain, left lower quadrant COMPARISON: 01/19/2018 DATE/TIME: 08/16/2024 3:42 PM TECHNIQUE: Multiplanar CT images of the abdomen and pelvis were obtained.IV contrast: uneventful intravenous administration of 80 mL Isovue 370.Oral contrast: None. A dose lowering technique was used for this procedure, which may include,but is not limited to, dose reduction technique, automated exposurecontrol, the use of iterative reconstruction, and ALARA (As Low AsReasonably Achievable) / Image Gently techniques. FINDINGS: Bilateral breast implants are partially included. Liver isnegative. Gallbladder is absent. Mild dilatation common bile duct,stable and nonspecific after cholecystectomy. No pancreatic ductdilatation. Pancreas is negative. Spleen is negative. Adrenal glandsare negative. There at least 2 tiny noncalcified stones in the left kidney, the largermeasuring 3 mm. No obstructive stone or hydronephrosis. There is a tinylow-density left renal lesion, too small to characterize. Kidneys areotherwise negative. There are calcified pelvic phleboliths. Abdominalaorta is normal caliber. Hysterectomy. Right ovary and appendix are notvisualized and may be surgically absent. There is a left adnexal cystlikely ovarian origin measuring 2.8 x 2.8 x 2.6 cm. No free air or fluid. No bowel obstruction. No bowel wall thickening.No evidence of diverticulosis or diverticulitis. There is a moderate tolarge amount stool throughout colon. No acute osseous abnormality. IMPRESSION: 1. No acute abnormality identified. 2. Nonobstructive left nephrolithiasis. 3. Left ovarian cyst, 2.8 cm. 4. Status post cholecystectomy with mild stable bile duct dilatation. Referred By: Interpreted By: Tian Soliz MD, 08/16/2024 3:52 PM Jovanni Orozco DO CT Final Result * CULTURE, GENITAL W/ GRAM STAIN (08/16/2024 3:37 PM FASHION DESIGNER) SPEC DESCRIPTION CERVIX 08/16/2024 3:40 PM FASHION DESIGNER [facility] SPECIAL REQUESTS NO SPECIAL REQUEST 08/16/2024 3:40 PM FASHION DESIGNER [facility] GRAM STAIN RESULT MANY GRAM POSITIVE RODS 08/16/2024 4:32 PM FASHION DESIGNER [facility] GRAM STAIN RESULT NO WBC SEEN 08/16/2024 4:32 PM FASHION DESIGNER [facility] GRAM STAIN RESULT RARE EPITHELIAL CELLS SEEN 08/16/2024 4:32 PM FASHION DESIGNER [facility] GRAM STAIN RESULT NO FUNGAL ELEMENTS SEEN 08/16/2024 4:32 PM FASHION DESIGNER [facility] GRAM STAIN RESULT NO CLUE CELLS 08/16/2024 4:32 PM FASHION DESIGNER [facility] CULTURE RESULT MODERATE GARDNERELLA VAGINALIS 08/19/2024 10:41 AM FASHION DESIGNER [facility] CULTURE RESULT FEW STAPHYLOCOCCUS, COAGULASE NEGATIVE 08/19/2024 10:41 AM FASHION DESIGNER [facility] CULTURE RESULT FEW ENTEROCOCCUS FAECALIS 08/19/2024 10:41 AM FASHION DESIGNER [facility] CULTURE RESULT FEW ALPHA STREPTOCOCCUS 08/19/2024 10:41 AM FASHION DESIGNER [facility] SPECIMEN FROM UTERINE CERVIX / Unknown 08/16/2024 3:37 PM FASHION DESIGNER 08/16/2024 3:54 PM FASHION DESIGNER Narrative Organism Antibiotic Method Susceptibility Staphylococcus, coagulase negative CLINDAMYCIN SHAE (VITEK) Sensitive Staphylococcus, coagulase negative ERYTHROMYCIN SHAE (VITEK) Sensitive Staphylococcus, coagulase negative GENTAMICIN SHAE (VITEK) Sensitive Staphylococcus, coagulase negative OXACILLIN SHAE (VITEK) Resistant Staphylococcus, coagulase negative PENICILLIN G SHAE (VITEK) Resistant Staphylococcus, coagulase negative RIFAMPIN SHAE (VITEK) Sensitive Staphylococcus, coagulase negative TRIMETH-SULFAMETH. SHAE (VITEK) Sensitive Staphylococcus, coagulase negative TETRACYCLINE SHAE (VITEK) Sensitive Staphylococcus, coagulase negative VANCOMYCIN SHAE (VITEK) Sensitive Enterococcus faecalis AMPICILLIN SHAE (VITEK) Sensitive Enterococcus faecalis ERYTHROMYCIN SHAE (VITEK) INTERMEDIATE: Intermediate Enterococcus faecalis GENT. SYNERGY SCREEN SHAE (VITEK) Sensitive Enterococcus faecalis LINEZOLID SHAE (VITEK) Sensitive Enterococcus faecalis PENICILLIN G SHAE (VITEK) Sensitive Enterococcus faecalis STR. SYNERGY SCR SHAE (VITEK) Sensitive Enterococcus faecalis TIGECYCLINE SHAE (VITEK) Sensitive Enterococcus faecalis VANCOMYCIN SHAE (VITEK) Sensitive us Jovanni Orozco DO MICROBIOLOGY - GENERAL ORDERABLE S Final Result [facility] [address] [place] [address], [id number] [facility] [place] [address], * CHLAMYDIA GC RNA (08/16/2024 3:37 PM FASHION DESIGNER) SPEC DESCRIPTION VAGINAL SPECIMEN 08/16/2024 3:40 PM FASHION DESIGNER [facility] CHLAMYDIA RNA TMA NEGATIVE NEGATIVE 025 11:28 AM FASHION DESIGNER [facility] Comment:PERFORMED BY NUCLEIC ACID AMPLIFICATION N.GONORRHOEAE RNA TMA NEGATIVE NEGATIVE 08/18/2024 11:28 AM FASHION DESIGNER [facility] Comment:PERFORMED BY NUCLEIC ACID AMPLIFICATION VAGINAL STRUCTURE / Unknown 08/16/2024 3:37 PM FASHION DESIGNER us Jovanni Orozco DO MICROBIOLOGY - GENERAL ORDERABLE S Final Result Performing Organization Address [facility]/ZIP Co de Phone Number [facility] [address] [place] [address], [facility] [place] [address], * TRICHOMONAS ANTIGEN (08/16/2024 3:37 PM FASHION DESIGNER) SPECIMEN TYPE CERVIX 08/16/2024 3:40 PM FASHION DESIGNER [facility] TRICHOMONAS NEGATIVE NEGATIVE 08/16/2024 4:17 PM FASHION DESIGNER [facility] CERVIX UTERI STRUCTURE / Unknown 08/16/2024 3:37 PM FASHION DESIGNER us Jovanni Orozco DO MICROBIOLOGY - GENERAL ORDERABLE S Final Result Performing Organization Address City/[facility]/ZIP Co de Phone Number [facility] [place] [address], * LACTIC ACID W REFLEX (SEPSIS) (08/16/2024 2:20 PM FASHION DESIGNER) LACTIC ACID VENOUS 0.9 0.4 - 2.0 MMOL/L 08/16/2024 2:47 PM FASHION DESIGNER [facility] 08/16/2024 2:20 PM FASHION DESIGNER us Jovanni Orozco DO LABORATORY Final Result Performing Organization Address [facility] Co de Phone Number [facility] [address] [place] [address], * PARTIAL THROMBOPLASTIN TIME,PTT (08/16/2024 2:20 PM FASHION DESIGNER) PTT 31.0 25.1 - 36.5 SEC 08/16/2024 2:36 PM FASHION DESIGNER [facility] 08/16/2024 2:20 PM FASHION DESIGNER us Jovanni Orozco DO LABORATORY Final Result Performing Organization Address [facility] Co de Phone Number [facility] [address] [place] [address], [place] [phone] * (ABNORMAL) PROTIME/INR, VENOUS (08/16/2024 2:20 PM FASHION DESIGNER) PROTIME 13.1(H) 9.4 - 12.5 SEC 08/16/2024 2:36 PM FASHION DESIGNER [facility] INR 1.1(H) 0.8 - 1.0 08/16/2024 2:36 PM FASHION DESIGNER [facility] 08/16/2024 2:20 PM FASHION DESIGNER us Jovanni Orozco DO LABORATORY Final Result Performing Organization Address [facility] Co de Phone Number [facility] [address] [place] [address], [place] [phone] * COMPREHENSIVE METABOLIC PANEL (08/16/2024 2:20 PM FASHION DESIGNER) SODIUM S/P/B 142 136 - 145 MMOL/L 08/16/2024 3:04 PM FASHION DESIGNER [facility] POTASSIUM S/P/B 4.3 3.5 - 5.1 MMOL/L 08/16/2024 3:04 PM [facility] CHLORIDE S/P/B 105 98 - 107 MMOL/L 08/16/2024 3:04 PM [facility] CO2 29.4 21.0 - 32.0 MMOL/L 08/16/2024 3:04 PM [facility] GLUCOSE 89 70 - 99 MG/DL 08/16/2024 3:04 PM [facility] Comment: FASTING GLUCOSE 100 TO 125 MG/DL IS CONSISTENT WITH IMPAIRED FASTING GLUCOSE. FASTING GLUCOSE >125 MG/DL IS CONSISTENT WITH DIABETES. RANDOM GLUCOSE >200 MG/DL WITH HYPERGLYCEMIC SYMPTOMS IS CONSISTENT WITH DIABETES. PER ADA GUIDELINES BUN 10 6 - 24 MG/DL 08/16/2024 3:04 PM [facility] CREATININE S/P/B 0.75 0.55 - 1.02 MG/DL 08/16/2024 3:04 PM [facility] CALCIUM S/P/B 9.0 8.4 - 10.5 MG/DL 08/16/2024 3:04 PM [facility] BILIRUBIN TOTAL S/P/B 0.6 0.2 - 1.0 MG/DL 08/16/2024 3:04 PM [facility] Comment: THIS ASSAY IS NOT RECOMMENDED FOR PATIENTS UNDERGOING TREATMENT WITH ELTROMBOPAG DUE TO THE POTENTIAL FOR FALSELY ELEVATED RESULTS. ALKALINE PHOSPHATASE S/P/B 93 37 - 98 U/L 08/16/2024 3:04 PM [facility] AST 16 15 - 37 U/L 08/16/2024 3:04 PM [facility] ALT 20 14 - 59 U/L 08/16/2024 3:04 PM [facility] TOTAL PROTEIN S/P/B 7.3 6.4 - 8.2 G/DL 08/16/2024 3:04 PM [facility] ALBUMIN S/P/B 4.1 3.4 - 5.0 G/DL 08/16/2024 3:04 PM [facility] ANION GAP 7.6 5.0 - 15.0 MMOL/L 08/16/2024 3:04 PM FASHION DESIGNER [facility] OSMOLALITY (CALC) 293 MOSM/KG 025 3:04 PM FASHION DESIGNER [facility] Comment:REFERENCE RANGE NOT ESTABLISHED GFR ESTIMATE >90 >89 ML/MIN/1. 73 M2 08/16/2024 3:04 PM FASHION DESIGNER [facility] GFR NOTES GFR REFERENCE S: 08/16/2024 3:04 PM FASHION DESIGNER [facility] Comment: THE ESTIMATED GFR IS CALCULATED USING THE 2020 CKD-EPI EQUATION. THE FOLLOWING CATEGORIES FOR GRADING RENAL FUNCTION ARE RECOMMENDED BY THE INTERNATIONAL SOCIETY OF NEPHROLOGY (KDIGO 2012 CLINICAL PRACTICE GUIDELINE). G1,NORMAL OR HIGH: >89 ml/min/1.73 m2 G2,MILDLY DECREASED: 60-89 ml/min/1.73 m2 G3A,MILDLY TO MODERATELY DECREASED: 45-59 ml/min/1.73 m2 G3B,MODERATELY TO SEVERELY DECREASED: 30-44 ml/min/1.73 m2 G4,SEVERELY DECREASED: 15-29 ml/min/1.73 m2 G5,KIDNEY FAILURE: <15 ml/min/1.73 m2 08/16/2024 2:20 PM FASHION DESIGNER us Jovanni Orozco DO LABORATORY Final Result [facility] [address] [place] [address], * LH, LUTEINIZING HORMONE (08/16/2024 2:20 PM FASHION DESIGNER) Luteinizing Hormone 13.6 MIU/ML 08/17 12:21 PM FASHION DESIGNER [facility] Comment: FOLLIC PHASE: 1.9 TO 12.8 mIU/mL MID CYCLE: 22.8 TO 76.1 mIU/mL LUTEAL PHASE: 0.6 TO 13.5 mIU/mL POST MENOPAUSAL W/O HRT: 8.6 TO 61.8 mIU/mL ASSAY PERFORMED BY CHEMILUMINESCENCE METHODOLOGY USING SIEMENS DIMENSION VISTA REAGENT. PATIENT RESULTS DETERMINED BY ASSAYS USING DIFFERENT MANUFACTURERS FOR METHODS MAY NOT BE COMPARABLE. 08/16/2024 2:20 PM FASHION DESIGNER us Jovanni Orozco DO LABORATORY Final Result Performing Organization Address [facility]/ZIP Co de Phone Number [facility] [address] [place] [address], [place] [phone] * FSH, FOLLICLE STIM HORMONE (08/16/2024 2:20 PM FASHION DESIGNER) FSH 14.2 MIU/ML 08/17/2024 12:21 PM FASHION DESIGNER [facility] Comment: FOLLIC PHASE: 2.3 TO 12.6 mIU/mL MID CYCLE: 5.2 TO 17.5 mIU/mL LUTEAL PHASE: 1.7 TO 12.9 mIU/mL POST MENOPAUSAL NOT ON THERAPY: 12.7 TO 132.2 mIU/mL ASSAY PERFORMED BY CHEMILUMINESCENCE METHODOLOGY USING SIEMENS [place]IST[place] REAGENT. PATIENT RESULTS DETERMINED BY ASSAYS USING DIFFERENT MANUFACTURERS FOR METHODS MAY NOT BE COMPARABLE. 08/16/2024 2:20 PM FASHION DESIGNER us Jovanni Orozco DO LABORATORY Final Result Performing Organization Address [facility] Co de Phone Number [facility] [address] [place] [address], [place] [phone] * HCG QUANT (SERUM)-CHORIONIC GONADOTROPIN (08/16/2024 2:20 PM FASHION DESIGNER) HCG QUANTITATIVE <1 0.0 - 6.0 MIU/ML 08/16/2024 4:10 PM FASHION DESIGNER [facility] Comment:NON- FEMALE 0-6 08/16/2024 2:20 PM FASHION DESIGNER us Jovanni Orozco DO LABORATORY Final Result [facility] [address] [place] [address], [place] [phone] * (ABNORMAL) CBC W/DIFF AUTOMATED (08/16/2024 2:20 PM FASHION DESIGNER) [facility] WBC 7.30 4.00 - 10.80 x10'3/uL 08/16/2024 2:26 PM FASHION DESIGNER [facility] RBC 4.92 4.10 - 5.40 x10'6/uL 08/16/2024 2:26 PM [facility] HGB 14.3 12.0 - 16.0 G/DL 08/16/2024 2:26 PM [facility] HCT 42.7 36.0 - 47.0 % 08/16/2024 2:26 PM [facility] MCV 86.8 78.0 - 100.0 FL 08/16/2024 2:26 PM [facility] MCH 29.1 27.0 - 31.0 PG 08/16/2024 2:26 PM [facility] MCHC 33.5 33.0 - 36.0 G/DL 08/16/2024 2:26 PM [facility] RDW 16.9(H) 11.5 - 14.5 % 08/16/2024 2:26 PM [facility] PLT 231 150 - 350 x10'3/uL 08/16/2024 2:26 PM [facility] MPV 9.8 7.4 - 10.4 FL 08/16/2024 2:26 PM [facility] CBC COMMENT NORMAL REFERENCE RANGE NOT ESTABLISHED FOR THE PROPORTIONAL LEUKOCYTE DIFFERENTIAL. 08/16/2024 2:26 PM [facility] NEUTROPHILS % 52.1 % 08/16/2024 2:26 PM [facility] LYMPHOCYTES % 34.9 % 08/16/2024 2:26 PM [facility] MONOCYTES % 8.6 % 08/16/2024 2:26 PM [facility] EOSINOPHILS % 3.3 % 08/16/2024 2:26 PM [facility] BASOPHILS % 1.0 % 08/16/2024 2:26 PM [facility] IMMATURE GRANS % 0.1 % 02/09/20 25 2:26 PM FASHION DESIGNER [facility] NRBC % 0.0 % 08/16/2024 2:26 PM FASHION DESIGNER [facility] ABS. NEUTROPHILS 3.80 1.60 - 8.30 x10'3/uL 08/16/2024 2:26 PM FASHION DESIGNER [facility] ABS. LYMPHOCYTES 2.55 0.80 - 4.70 x10'3/uL 08/16/2024 2:26 PM FASHION DESIGNER [facility] ABS. MONOCYTES 0.63 0.00 - 1.50 x10'3/uL 08/16/2024 2:26 PM FASHION DESIGNER [facility] ABS. EOSINOPHILS 0.24 0.00 - 0.40 x10'3/uL 08/16/2024 2:26 PM FASHION DESIGNER [facility] ABS. BASOPHILS 0.07 0.00 - 0.20 x10'3/uL 08/16/2024 2:26 PM FASHION DESIGNER [facility] ABS. IMMATURE GRANULOCYTES 0.01 0.00 - 0.03 x10'3/uL 08/16/2024 2:26 PM FASHION DESIGNER [facility] ABS. NUCLEATED RBC'S 0.00 0.00 - 0.01 x10'3/uL 08/16/2024 2:26 PM FASHION DESIGNER [facility] 08/16/2024 2:20 PM FASHION DESIGNER Jovanni Orozco DO LABORATORY Final Result [facility] [address] [place] [address], * PROLACTIN (08/16/2024 2:20 PM FASHION DESIGNER) PROLACTIN 14.1 2.2 - 30.3 NG/ML 08/17/2024 1:22 PM FASHION DESIGNER [facility] Comment: ASSAY PERFORMED BY CHEMILUMINESCENCE METHODOLOGY USING Complexa D[employer]ENS[employer] [place]IST[place] REAGENT. PATIENT RESULTS DETERMINED BY ASSAYS USING DIFFERENT MANUFACTURERS FOR METHODS MAY NOT BE COMPARABLE. 08/16/2024 2:20 PM FASHION DESIGNER Jovanni Orozco DO LABORATORY Final Result [facility] [address] [place] [address], [phone] * (ABNORMAL) URINALYSIS (08/16/2024 2:15 PM FASHION DESIGNER) COLOR (U) YELLOW 08/16/2024 2:39 PM FASHION DESIGNER [facility] TRANSPARENCY CLEAR 08/16/2024 2:39 PM FASHION DESIGNER [facility] SPECIFIC GRAVITY (U) 1.020 1.000 - 1.025 08/16/2024 2:39 PM FASHION DESIGNER [facility] U PH 8.5(H) 5.0 - 8.0 08/16/2024 2:39 PM FASHION DESIGNER [facility] LEUKOCYTES (U) NEGATIVE NEGATIVE 08/16/2024 2:39 PM FASHION DESIGNER [facility] NITRITES NEGATIVE NEGATIVE 08/16/2024 2:39 PM FASHION DESIGNER [facility] PROTEIN RANDOM (U) NEGATIVE NEGATIVE 08/16/2024 2:39 PM FASHION DESIGNER [facility] GLUCOSE (U) NEGATIVE NEGATIVE 08/16/2024 2:39 PM FASHION DESIGNER [facility] KETONES MG/DL (U) NEGATIVE NEGATIVE 08/16/2024 2:39 PM FASHION DESIGNER [facility] UROBILINOGEN 0.2 <1.0 EU/DL 08/16/2024 2:39 PM FASHION DESIGNER [facility] BILIRUBIN (U) NEGATIVE NEGATIVE 08/16/2024 2:39 PM FASHION DESIGNER [facility] BLOOD (U) NEGATIVE NEGATIVE 08/16/2024 2:39 PM FASHION DESIGNER [facility] WBC/HPF 0-5 0 - 5 /HPF 08/16/2024 2:39 PM FASHION DESIGNER [facility] RBC/HPF 0-5 0 - 5 /HPF 08/16/2024 2:39 PM FASHION DESIGNER [facility] EPI/LPF OCCASIONAL /LPF 08/16/2024 2:39 PM FASHION DESIGNER [facility] BACTERIA (U) TRACE /HPF 08/16/2024 2:39 PM FASHION DESIGNER [facility] URINE SPECIMEN OBTAINED BY CLEAN CATCH PROCEDURE / Unknown 08/16/2024 2:15 PM FASHION DESIGNER Jovannikenia Haleneelam DO URINE ORDERABLES Final Result [facility] [address] [place] [address], [place] [phone] * HEPATITIS C ANTIBODY (05/11/2022 3:54 PM CDT) HEPATITIS C AB NON-REACTI VE NON-REACT CHER 05/11/2022 6:07 PM CDT [facility] Comment: ANTIBODIES TO HCV NOT DETECTED. DOES NOT EXCLUDE THE POSSIBILITY OF EXPOSURE TO HCV. 05/11/2022 3:54 PM CDT Evelyn SIMPSONP LABORATORY Final Result Performing Organization Address City/[facility] Co de Phone Number [facility] [address] [place] [address], [place] [phone] from Last 3 Months or Most Recently Relevant to Health Maintenance Additional Health Concerns Infection Onset Date Last Indicated ESBL - Extended Spectrum Bet a-lactamase Comment:01/02/23 urine (JJ) 01/02/2023 01/02/2023 Insurance [facility] Advance Directives * Full Code (Latest Code Status on File) Date Activated Date Inactivated Comments 09/11/2021 4:57 PM 09/11/2021 7:40 PM * Full Code Date Activated Date Inactivated Comments 12/24/2018 9:36 AM 12/27/2018 3:31 PM * Full Code Date Activated Date Inactivated Comments 12/22/2018 8:49 AM 12/22/2018 11:51 AM * Full Code Date Activated Date Inactivated Comments 12/15/2018 6:04 PM 12/15/2018 8:48 PM * Full Code Date Activated Date Inactivated Comments 06/26/2018 8:44 AM 06/27/2018 1:13 PM Care Teams Safety Instructor Relationship Specialty Start Date End Date Vannesa Ma MD [address] [place] [address] [place] [address] PCP - General FAMILY PRACTICE 08/16/24 Gallito Caldwell MD [address] [place] [address] [phone] Consulting Physician INTERVENTIONAL CARDIOLOGY 07/10/22 Oliver Allen APRN [address] [place] [address] [place] [phone] Nurse Practitioner NURSE PRACTITIONER 07/10/22
--- OUTSIDE RECORDS SUMMARY | 2024-08-22 11:00 | XMS_ITS | Encounter Summary ---
Author Organization [facility] Address [facility] [place] [address] Care Team Providers Care Microwave Remote Sensing Scientist Name Role Phone Roxie Higuera Tiffany LITHOPRESS OPERATOR Unavailable + [phone] Devorah Thomas RN SANE Primary Care Provider [phone] Gallito Caldwell MD Unavailable [phone] Oliver Allen APRN Unavailable [phone] Wilda Savage NP Primary Care Provider [phone] Devorah Thomas RN SANE Primary Care Provider [phone] Malou Frazier MD Primary Care Provider [phone] Vannesa Ma MD Primary Care Provider + [phone] Encounter Details Date Type Department Care Team (Late st Contact Info) Description 11/28/2021 [facility] Message Enc [facility] [address] [place] [address], [facility] [address] [place] [address] Sgaar Syed MD [address] [place] [address] Visit Follow Up Social History Tobacco Use Types Packs/Day Years Used Date Smoking Tobacco: Never Smokeless Tobacco: Never Alcohol Use Standard Drinks/Week Comments Yes 0 (1 standard drink = 0.6 oz pur e alcohol) occasional-social AUDIT-C Answer Date Recorded Frequency of Alcohol Consumption Never 06/26/2018 Average Number of Drinks Not on file 018 Frequency of Binge Drinking Not on file 06/08 PHQ-2 Answer Date Recorded PHQ-2 Score - If the patient scores above 3, please move on to questions 3-9 0 05/16/2021 Depression Answer Date Recor ded Last EPDS Total Score 15 12/21/2019 Last EPDS Self Harm Result 12/20 Comments No Sex and Gender Information Value Date Recorded Sex Assigned at Female 10/12/2022 9:41 PM CDT Legal Sex Female 8:59 PM FASHION PATTERNMAKER Gender Identity Female 10/12/2022 9:41 PM CDT Sexual Orientation Straight 10/12/2022 9: 41 PM CDT COVID-19 Exposure Response Date Recorded In the last 10 days, have yo u been in contact with someone who was confirmed or suspected to have Coronavirus/COVID-19? No / Unsure 11/30/2021 11:02 AM CDT documented as of this encounter Functional Status * RETIRED Are you deaf or do you have serious difficulty hearing Answer Date of Assessment Author Status No 12/24/2018 6:00 AM CDT Activ e * RETIRED Are you blind or do you have serious difficulty seeing, even when wearing glasses? Answer Date of Assessment Author Status No 12/24/2018 6:00 AM CDT Activ e * Do you have serious difficulty walking or climbing stairs? Answer Date of Assessment Author Status No 12/24/2018 6:00 AM HANNAHT Carolni Rosas RN Active * Do you have difficulty dressing or bathing? Answer Date of Assessment Author Status No 12/24/2018 6:00 AM HANNAHT Carolin Rosas RN Active * Because of a physical, mental, or emotional condition, do you have difficulty doing errands alone such as visiting a doctor's office or shopping? Answer Date of Assessment Author Status No 12/24/2018 6:00 AM Carolin Israel RN Active documented as of this encounter Mental Status * Because of a physical, mental, or emotional condition, do you have serious difficulty concentrating, remembering, or making decisions? Answer Entry Date Author Status No 12/24/2018 6:00 AM Carolin Israel RN Active documented in this encounter Plan of Treatment Not on file documented as of this encounter Visit Diagnoses Not on filedocumented in this encounter Additional Health Concerns Infection Onset Date Last Indicated Resolved Time COVID-19 Rule Out 11/30/2021 11/30/2021 11/30/2021 11:54 AM CDT COVID-19 Rule Out 11/30/2021 11/30/2021 12/01/2021 1:54 PM CDT COVID-19 Rule Out 12/30/2021 12/30/2021 12/30/2021 2:27 PM CDT COVID-19 Rule Out 12/30/2021 12/30/2021 12/31/2021 6:15 PM CDT ESBL - Extended Spectrum Beta-lactamase Comment:01/02/23 urine (JJ) 01/02/2023 01/02/2023 Assessment Noted Time PHQ-9 Depression Total Score: 0 05/16/20 21 8:24 AM FASHION PATTERNMAKER documented as of this encounter Care Teams Microwave Remote Sensing Scientist Relationship Specialty Start Date End Date Devorah Thomas NP PCP - General Nurse Practitioner Family 03/01/20 10/30/22 Wilda Savage NP [address] [place] [address] [place] [address] PCP - General Nurse Practitioner Family 12/21/22 01/01/23 Devorah Thomas RN SANE PCP - General Nurse Practitioner Family 10/31/22 12/20/22 Malou Frazier MD [address] [place] [address] PCP - General FAMILY PRACTICE 01/02/23 08/15/24 Vannesa Ma MD [address] [place] [address] PCP - General FAMILY PRACTICE 08/16/24 Roxie Higuera FNP FAMILY PRACTICE 10/24/18 07/09/22 Gallito Caldwell MD [address] [place] [phone] Consulting Physician INTERVENTIONAL CARDIOLOGY 07/10/22 Oliver Allen APRN [address] [place] [phone] Nurse Practitioner NURSE PRACTITIONER 07/10/22 documented as of this encounter
== END 2024-08-22 10:57 | disposition home or self-care (01) ==
LOC: ANHLAB 10:57
PROVIDERS: PCP Family Medicine; Visit Provider Obstetrics & Gynecology
DX: R10.2 Pelvic and perineal pain (principal)
CPT/HCPCS: 36415; 86850; 86900; 86901

== ENCOUNTER 2024-08-26 00:13 | Day surgery (SDC) | payer OTHER, SELFPAY ==
--- NOTE | 2024-08-21 15:47 | PC.NURSE ---
Report to the Outpatient Waiting Room, entrance under the green pavilion located off [facility], at time _1100_ on date _[phone]_. Planned Procedure Time: _1pm_.? Time changes happen often and if your time is changed the preop area will call you the afternoon before. - You and your visitor will be asked to self-screen and do not enter if you have any COVID symptoms. Please call surgeon if you need to reschedule. - A mask is optional within the hospital at this time. Patients may have clear liquids (water, carbonated beverages, clear teas, apple juice) until 3 hours prior to surgery with a maximum of 20 ounces. - No food from midnight until time of surgery and no smoking, or chewing tobacco (or any form of nicotine). No chewing gum, candy or mints. Take only the following medications with a SIP of water on the morning of surgery: ___Latuda, Buspirone, Risperidone and if needed Hydrocodone.____ DO NOT STOP ANY OF YOUR OTHER PRESCRIPTION MEDICATIONS PRIOR TO SURGERY EXCEPT THE FOLLOWING Hold all vitamins and supplements for 3 days per anesthesiologist. Medications to discontinue per physician Date to take last dose Please no make-up, nail turkmen, hairspray, perfume, deodorant, or body powder the day of surgery.? No jewelry (including any body piercings) or valuables the day of surgery, leave them at home.? Please take a shower or bath the night before, or the morning of, surgery with an antibacterial soap.? Wear comfortable, loose fitting clothing.? - Jewelry must be removed prior to entering the operating room.? Rings and piercings that are not removed may be cut off. - The hospital will not accept responsibility for valuables.? - Please leave all valuables, including medications, at home the day of surgery. If you are going home after surgery, a licensed class a truck driver must drive you home.? - NO public transportation without another adult if you receive anesthesia. - We recommend that an adult stay with you for 24 hours following discharge. - We also recommend that you do not drive, make important decision, drink alcoholic beverages, or take any drugs that were not prescribed by your health care provider for at least 24 hours after your discharge time. Follow any additional instructions given to you from your surgeon. Telephone instructions given to _Rubin___and asked if any additional questions and then verbalized understanding. Patient advised to call surgeon office or pre surgery nurse liaison [phone] if any additional questions.
[2024-08-26] VITALS (8 sets, daily range): BP systolic 94–129; BP diastolic 50–84; PULSE 68–94; RESP 14–20; TEMP 36.1–37.1; O2SAT 99–100
--- OUTSIDE RECORDS SUMMARY | 2024-08-26 00:18 | XMS_ITS | Patient Health Summary ---
Author Organization [facility] Address [address] [place] [address] Care Team Providers Care Laser/Electro Optics Technician Name Role Phone Unavailable Primary Care Provider Unavailabl e Note from [facility],non-owned Affiliates and Associated Physician Practices is amultiple site organization consisting of ambulatory clinics and hospital sitesin [place], [place], [place] and [place]. This disclosure is being madepursuant to the Care Everywhere program and may not contain all information available regarding this patient. 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, antepartum ([facility]), History of delivery, History of delivery, Nutcracker phenomenon of renal vein * SONOGRAM - COMPLETE(Performed 11/07/2022) Performed for Nutcracker phenomenon of renal vein, Hypotension, unspecified hypotension type, Hx ofpreterm delivery, currently ([facility]), Previous child with anomaly, antepartum ([facility]), Previousbaby with growth restriction, Supervision of high-risk of young multigravida ([facility]) Results * BIOPHYSICAL PROFILE W NST (11/16/2022 9:44 AM CDT) Anatomical Region Laterality Modality Other 11/16/2022 9:44 AM CDT Narrative 11/16/2022 1:02 PM CDT [facility] PHONE: FAX: Pat. Name: ODILIA AMARAL Pat. No: [id number] Study Date: 11/16/2022 9:44am , Age: 01 1995, 27 Pregnancies: 6, Para 1132 Height: 61 in Weight: 101 lb LMP: 03/17/2022 GA by LMP: 34w6d GA by Base: 34w6d LATIA: 12/22/2022 GA Selected: 34w6d (From [facility]) LATIA: 12/22/2022 Referring MD: Heraclio Wen MD Speech Lang Path Therapist: Chelsi Hunter, RDMS, RDCS CPT4: 72472,[id number] BMI: 19.08 Hist/Ind: G1: @ 38 wks [...] <Electronic Signature> 11/16/2022 01:02pm Heraclio Wen MD [facility] ORDERABLES * SONOGRAM - COMPLETE (11/07/2022 1:11 PM CDT) Anatomical Region Laterality Modality Other 11/07/2022 1:11 PM CDT Narrative 11/07/2022 4:30 PM CDT [facility] PHONE: FAX: Pat. Name: ODILIA AMARAL Pat. 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 cf-DNA MEASUREMENTS & AGE GROWTH EVALUATION Measurement GA Range Srce %for GA Ratios ----- ---- ------- BPD 8.1 cm 32w5d (16s1m-87d7b) Hadl BPD 21% FL/BPD 0.75 (0.71 - 0.87) HC 30.0 cm 33w1d (62f4m-00n8h) Hadl HC 8% FL/AC 0.22 (0.20 - 0.24) AC 27.7 cm 31w6d (66e2f-97h7z) Hadl AC 9% HC/AC 1.08 (0.95 - 1.13) FL 6.1 cm 31w4d (44b5l-87x1t) Hadl FL 4% CI 0.77 (0.70 - 0.86) HL 5.0 cm 29w3d (32c7s-27s3o) Peter HL <05 GA for sonogram 32w2d (77i5y-14x6k) Weight Estimate: based on (BPD,HC,AC,FL) Avg Weight: [...] stated EDC from LMP * Referred to [facility] for consult & obstetrical U/S secondary [...] symtoms were alleviated with propranolol (Rx by Sports Attorney) - She stopped propranolol when * Social [...] * Thank you very much for requesting [facility] participation in her obstetrical care * Findings were explained & questions were addressed & precautions were given * U/S does not detect all structural & functional maternal- abnormalities * Telemedicine services were performed for this U/S examination & [facility] consultation - Patient's identity was confirmed at the [facility] office - Appropriateness of the telehealth consult was confirmed - Informed consent for telemedicine services was obtained & scanned into EMR - Modality was secure interactive audio-video session using [employer] - Patient site location was [facility] - Patient site nurse presenter was Carolyn Vickers - Distant site provider was Tj Greer MD & location was home office - Consult = 60 minutes, >50% involving [id number] counseling & coordination of care Tj Greer MD <Electronic Signature> 11/07/2022 04:30pm Heraclio Wen MD [facility] ORDERABLES
--- OUTSIDE RECORDS SUMMARY | 2024-08-26 00:18 | XMS_ITS | Clinical Summary ---
Author Organization [facility] Address [address] [facility] [address] Care Team Providers Care Cath Lab Technologist Name Role Phone Unavailable Primary Care Provider Unavailabl e Source Comments [facility],non-owned Affiliates and Associated Physician Practices is amultiple site organization consisting of ambulatory clinics and hospital sitesin [place], [place], [place] and [place]. This disclosure is being madepursuant to the Care Everywhere program and may not contain all information available regarding this patient. Last updated 18.[facility] [employer] Allergies Active Allergy Reactions Criticality Noted Date [...]
--- OUTSIDE RECORDS SUMMARY | 2024-08-26 00:18 | XMS_ITS | Referral Summary ---
Author Organization [facility] Address [address] [place] [address] Care Team Providers Care Crystal Lapper Name Role Phone Unavailable Primary Care Provider Unavailabl e Source Comments [facility],non-owned Affiliates and Associated Physician Practices is amultiple site organization consisting of ambulatory clinics and hospital sitesin [place], [place], [place] and [place]. This disclosure is being madepursuant to the Care Everywhere program and may not contain all information available regarding this patient. Last updated 18.[facility] [employer] Allergies Active Allergy Reactions Criticality Noted Date Comments Latex Itching 11/06/2022 Nitrofurantoin Unknown 11/06/2022 Medications * Be aware that medications may not be up to date on this document. Always verify current medications with the patient. Medication Sig [...] CDT Plan of Treatment Not on file Nilam Eckert Personal/Famil y Self 1995
--- OUTSIDE RECORDS SUMMARY | 2024-08-26 00:18 | XMS_ITS | Encounter Summary ---
Author Organization [facility] Address [facility] [place] [address] Care Team Providers Care Glass Silverer Name Role Phone Roxie Higuera Tiffany DENTAL AIDE Unavailable + [phone] Devorah Thomas FACILITIES PLANNER Primary Care Provider [phone] Gallito Caldwell MD Unavailable [phone] Oliver Allen APRN Unavailable [phone] Wilda Savage NP Primary Care Provider + [phone] Devorah Thomas FACILITIES PLANNER Primary Care Provider [phone] Malou Frazier MD Primary Care Provider +[phone] Vannesa Ma MD Primary Care Provider + [phone] Encounter Details Date Type Department Care Team (Late st Contact Info) Description 11/28/2021 Vision Chain Inct Message Enc [facility] [address] [place] [address], [facility] [address] [place] [address] Sagar Syed MD [address] [place] [address] Visit Follow Up Social History Tobacco Use [...] PM CDT Legal Sex Female 8:59 PM 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 [employer]OD [employer]ODU[employer] Gender Identity Female 10/12/2022 9:41 PM CDT [...] Author Status No 12/24/2018 6:00 AM HANNAHT Carloin Rosas RN Active * Do you have [...] Total Score: 0 05/16/20 21 8:24 AM [employer] documented as of this encounter Care Teams Glass Silverer Relationship Specialty Start Date End Date Devorah Thomas NP PCP - General Nurse Practitioner Family 03/01/20 10/30/22 Wilda Savage NP [address] [place] [address] [place] [address] PCP - General Nurse Practitioner Family 12/21/22 01/01/23 Devorah Thomas FACILITIES PLANNER PCP - General Nurse Practitioner Family 10/31/22 12/20/22 Malou Frazier MD [address] [place] [address] PCP - General FAMILY PRACTICE 01/02/23 08/15/24 Vannesa Ma MD [address] [place] [address] PCP - General FAMILY PRACTICE 08/16/24 Roxie Higuera FNP FAMILY PRACTICE 10/24/18 07/09/22 Gallito Caldwell MD [address] [place] [address] Consulting Physician INTERVENTIONAL CARDIOLOGY 07/10/22 Oliver Allen APRN [address] [place] [address] Nurse Practitioner NURSE PRACTITIONER 07/10/22 documented as of this encounter
--- OUTSIDE RECORDS SUMMARY | 2024-08-26 00:18 | XMS_ITS | Encounter Summary ---
Author Organization [facility] Address [address] [place] [address] Care Team Providers Care Pecan Mallow Dipper Name Role Phone Roxie Higuera FLORAL MANAGER Unavailable + [phone] None, Provider Primary Care Provider Unavaila George Jones MD Primary Care Provider [phone] Devorah Thomas SENIOR CLINICAL RESEARCH ASSOCIATE Primary Care Provider [phone] Gallito Caldwell MD Unavailable [phone] Oliver Allen APRN Unavailable + [phone] Wilda Savage NP Primary Care Provider + [phone] Devorah Thomas SENIOR CLINICAL RESEARCH ASSOCIATE Primary Care Provider [phone] Malou Frazier MD Primary Care Provider [phone] Vannesa Ma MD Primary Care Provider + [phone] Encounter Details Date Type Department Care Team (Late st Contact Info) Description 12/13/2018 Abstract [facility] [address] [place] [address] , Generic Conversion, Social History Tobacco Use [...] PM CDT Legal Sex Female 8:59 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 Gender Identity Female 10/12/2022 9:41 PM CDT [...] Rule Out 07/15/2020 07/15/2020 07/15/2020 8:54 AM PHYSICIAN EXTENDER COVID-19 Rule Out 07/15/2020 07/15/2020 07/17/2020 6:30 AM PHYSICIAN EXTENDER COVID-19 Rule Out 05/19/2021 05/19/2021 05/19/2021 8:36 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 COVID-19 Rule Out 07/12/2021 07/12/2021 07/12/2021 4:41 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 COVID-19 Rule Out 07/12/2021 07/12/2021 07/14/2021 7:22 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 COVID-19 Rule Out 09/11/2021 09/11/2021 09/11/2021 2:35 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 COVID-19 Rule Out 11/30/2021 11/30/2021 11/30/2021 11:54 AM CDT COVID-19 Rule Out 11/30/2021 11/30/2021 12/01/2021 1:54 PM CDT COVID-19 Rule Out 12/30/2021 12/30/2021 12/30/2021 2:27 PM CDT COVID-19 Rule Out 12/30/2021 12/30/2021 12/31/2021 6:15 PM CDT ESBL - Extended Spectrum Beta-lactamase Comment:01/02/23 urine (JJ) 01/02/2023 01/02/2023 documented as of this encounter Care Teams Pecan Mallow Dipper Relationship Specialty Start Date End Date None, Katharine, PCP - General 11/27/18 12/14/18 George Osborne MD [address] [place] [address] PCP - General FAMILY PRACTICE 12/15/18 02/17/19 Devorah Thomas NP [address] [place] [address] PCP - General Nurse Practitioner Family 03/01/20 10/30/22 Wilda Savage NP [address] [place] [address] [place] [address] PCP - General Nurse Practitioner Family 12/21/22 01/01/23 Devorah Thomas, ESME [address] [place] [address] PCP - General Nurse Practitioner Family 10/31/22 12/20/22 Malou Frazier MD [address] [facility] [place] [address] PCP - General FAMILY PRACTICE 01/02/23 08/15/24 Vannesa Ma MD [address] [place] [address] PCP - General FAMILY PRACTICE 08/16/24 Roxie Higuera FNP FAMILY PRACTICE 10/24/18 07/09/22 Gallito Caldwell MD [address] [place] [address] Consulting Physician INTERVENTIONAL CARDIOLOGY 07/10/22 Oliver Allen APRN [address] [facility] [address] [address] Nurse Practitioner NURSE PRACTITIONER 07/10/22 documented as of this encounter
--- OUTSIDE RECORDS SUMMARY | 2024-08-26 00:18 | XMS_ITS | Encounter Summary ---
Author Organization [facility] Address [address] [place] [address] Care Team Providers Care Seam Taper Machine Name Role Phone Casey Alvarado APNP Primary Care Provi luis George Osborne MD Primary Care Provider [phone] Devorah Hansen APRN, SUPERVISOR T[employer]SE-C Unavailable [phone] Roxie Higuera MARKETING STRATEGY MANAGER Unavailable + [phone] None, Provider Primary Care Provider Unavaila ble George Osborne MD Primary Care Provider [phone] Devorah Thomas NP Primary Care Provider [phone] Gallito Caldwell MD Unavailable [phone] Oliver Allen APRN Unavailable + [phone] Wilda Savage NP Primary Care Provider + [phone] Devorah Thomas NP Primary Care Provider [phone] Malou Frazier MD Primary Care Provider [phone] Vannesa Ma MD Primary Care Provider [phone] Encounter Details Date Type Department Care Team (Latest Contact Info) Description 03/20/2018 Abstract [facility] Luis Shultz MD Social History Tobacco Use Types Packs/Day Years Used Date Smoking Tobacco: Never Assessed Comments Unknown Sex and Gender Information Value Date Recorded Sex Assigned at Female 10/12/2022 9:41 PM CDT Legal Sex Female 8:59 PM 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 [employer]CH[employer] Gender Identity Female 10/12/2022 9:41 PM CDT [...] Rule Out 07/15/2020 07/15/2020 07/15/2020 8:54 AM PINSETTER MECHANIC [employer]OMATIC COVID-19 Rule Out 07/15/2020 07/15/2020 07/17/2020 6:30 AM PINSETTER MECHANIC AUTOMATIC COVID-19 Rule Out 05/19/2021 05/19/2021 05/19/2021 8:36 PM PINSETTER MECHANIC AUTOMATIC COVID-19 Rule Out 07/12/2021 07/12/2021 07/12/2021 4:41 PM PINSETTER MECHANIC AUTOMATIC COVID-19 Rule Out 07/12/2021 07/12/2021 07/14/2021 7:22 PM PINSETTER MECHANIC AUTOMATIC COVID-19 Rule Out 09/11/2021 09/11/2021 09/11/2021 2:35 PM PINSETTER MECHANIC [employer]OMATIC COVID-19 Rule Out 11/30/2021 11/30/2021 11/30/2021 11:54 AM CDT COVID-19 Rule Out 11/30/2021 11/30/2021 12/01/2021 1:54 PM CDT COVID-19 Rule Out 12/30/2021 12/30/2021 12/30/2021 2:27 PM CDT COVID-19 Rule Out 12/30/2021 12/30/2021 12/31/2021 6:15 PM CDT ESBL - Extended Spectrum Beta-lactamase Comment:01/02/23 urine (JJ) 01/02/2023 01/02/2023 documented as of this encounter Care Teams Seam Taper Machine Relationship Specialty Start Date End Date Casey Alvarado APNP PCP - General NURSE PRACTITIONER 05/21/18 10/23/18 George Osborne MD [address] [place] [address] PCP - General FAMILY PRACTICE 10/24/18 11/26/18 Katharine Taylor MD PCP - General 11/27/18 12/14/18 George Osborne MD [address] [place] [address] PCP - General FAMILY PRACTICE 12/15/18 02/17/19 Devorah Thomas NP PCP - General Nurse Practitioner Family 03/01/20 10/30/22 Wilda Savage NP [address] [place] [id number] PCP - General Nurse Practitioner Family 12/21/22 01/01/23 Devorah Thomas NP PCP - General Nurse Practitioner Family 10/31/22 12/20/22 Malou Frazier MD [address] [place] [address] PCP - General FAMILY PRACTICE 01/02/23 08/15/24 Vannesa Ma MD [address] [place] [address] PCP - General FAMILY PRACTICE 08/16/24 Devorah Hansen APRN, SUPERVISOR [employer]SE-C [address] [place] [address] CARDIOVASCULAR DISEASE 10/24/18 9 Roxie Higuera FNP [address] [facility] [place] [id number] FAMILY PRACTICE 10/24/18 07/09/22 Gallito Caldwell MD [address] [place] [address] Consulting Physician INTERVENTIONAL CARDIOLOGY 07/10/22 Oliver Allen APRN [address] [place] [address] Nurse Practitioner NURSE PRACTITIONER 07/10/22 documented as of this encounter
--- OUTSIDE RECORDS SUMMARY | 2024-08-26 00:18 | XMS_ITS | Clinical Summary ---
Author Organization [facility] Address [address] [place] [address] Care Team Providers Care Scrape Gatherer Name Role Phone Gallito Caldwell MD Unavailable [phone] Oliver Allen APRN Unavailable [phone] Vannesa Ma MD Primary Care Provider + [phone] Allergies Active Allergy Reactions Criticality Noted Date [...] Date Diagnosed Date 29 weeks gestation of ([facility] 2022 Hypokalemia 10/13/2022 Acute sinusitis 10/13/2022 Nausea and vomiting in ([facility]) 10/13 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 Assessment & Plan (08/03/2019 11:23 AM CATHETER BUILDER): Would like her to resume omeprazole and [...] normally. Assessment & Plan (08/20/2022 12:00 PM CATHETER BUILDER): Discussed getting back in touch with [facility]. Will increase trileptal to 600mg BID. Discussed starting seroquel vs SSRI in . Patient is ok with starting seroquel. Assessment & Plan (08/25/2019 1:31 PM CATHETER BUILDER): Will switch to paxil. Assessment & Plan (08/03/2019 1:05 PM CATHETER BUILDER): Will increase sertraline to 75mg daily. 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 Osborne and also regularly sees Dr. Evelyn Rush Currently they are monitoring cervix for change, no intervention planned at this time She has the implanon to avoid and has tolerated this device well for over 7 months. She denies concerns today and vu of teaching presenter to her. Breast feeding status of mother ([facility]) 08/03/2019 03/31/2021 Overview (08/25/2019): 8 mo old son. Exclusively breast feeding. Pain at surgical incision 02/19/2019 depression 02/18/20192019 H/O section 02/18/2019 020 Cholestasis during in third trimester ([facility]) 12/24/2018 08/03/2019 Influenza 06/26/2018 08/03/2019 Influenza A 06/26/2018 08/03/2019 Encounters Date Type Department Care Team Description 08/16/2024 1:19 PM CATHETER BUILDER - 08/16/2024 5:30 PM CATHETER BUILDER Emergency [facility] [address] [facility] [address] Jovanni Orozco DO Abdominal Pain Discharge Disposition: [...] often do you attend chur ch or presybeterian services? Never 11/16/2022 Do you belong to any clubs o r organizations such as adventism groups, unions, fraternal or athletic groups, or [...] Recorded Patient Health Questionnaire-2 Score 6 08/20/2022 [facility] - Occupational [...] place to sleep or slept in a nursing home (including now)? No 11/16/2022 Depression Answer Date Recor ded Last EPDS Total Score 15 12/21/2019 Last EPDS Self Harm Result 12/20 Comments No Sex and Gender Information Value Date Recorded Sex Assigned at Female 10/12/2022 9:41 PM CDT Legal Sex Female 8:59 PM CATHETER BUILDER Gender Identity Female 10/12/2022 9:41 PM CDT Sexual Orientation Straight 10/12/2022 9: 41 PM CDT Last Filed Vital Signs Vital Sign Reading Time Taken Comments Blood Pressure 121/89 08/16/2024 5:30 PM CATHETER BUILDER Pulse 78 08/16/2024 1:22 PM CATHETER BUILDER Temperature 36.4 C (97.6 F) 08/16/2024 1:22 PM CATHETER BUILDER Respiratory Rate 15 08/16/2024 1:22 PM CATHETER BUILDER Oxygen Saturation 99% 08/16/2024 5:30 PM CATHETER BUILDER Inhaled Oxygen Concentration - - Weight 49.9 kg (110 lb) 08/16/2024 1:22 PM CATHETER BUILDER Height 154.9 cm (5' 1 ) 08/16/2024 1:22 PM CATHETER BUILDER Body Mass Index 20.78 08/16/2024 1:22 PM CATHETER BUILDER Plan of Treatment Health Maintenance Due Date Last Done Comments Annual Physical 1997 HPV Vaccines (2 - 3-dose series) 08/16/2014 07/19/2014 Cervical Cancer Screening Pap Smear (Age 30 to 64) Every 3 Years 01/18/2019 01/19/2016, 01/27/2015 COVID-19 Vaccine ( season) 2024 07/25/2022, 05/03/2022 Influenza Adult (#1) 2024 08/13/2018, 08/13/2018, 04/07/2015, Additional history exists PHQ-2 (Physician [place]) 07/08/2024 Cervical Cancer Screening Pap with HPV [...] this topic Medical Devices Implanted Type Area Industrial Servicer Device Identifier Shelf Expiration Date Model / Serial / Lot Implant Tightrope Abs Button Round 11mm Concave Arthrex - [id number] Implanted:Qty: 1 on 05/22/2021 by Sagar Syed MD at [facility] Right: Knee [employer] [id number] 02/04/2026 [id number] -3 / / [id number] Tight Rope@ 11 Alivia Luxlancamila Open Implanted:Qty: 1 on 05/22/2021 by Sagar Syed MD at [facility] Right: Knee [id number] 04/06/2026 [id number] / / [id number] Allograph Graft Ink Convenience Pack Implanted:Qty: 1 on 05/22/2021 by Sagar Syed MD at [facility] Right: Knee [id number] 09/04/2025 [id number] CP / / [id number] 1 Implant System, Tight Rope 11btb With Attatched Needle Recon With Fiber Tape Ib Flipcutter And Fiber Stick Implanted:Qty: 1 on 05/22/2021 by Sagar Syed MD at [facility] Right: Knee [id number] 01/04/2025 [id number] IB-FC3 / / [id number] Biocomposite Knotless Swivelock Cranberry Implanted:Qty: 1 on 05/22/2021 by Sagar Syed MD at [facility] Right: Knee [id number] 03/07/2025 [id number] C / / [id number] Tightrope 11 Abs, Implant, Open Implanted:Qty: 1 on 05/22/2021 by Sagar Syed MD at [facility] Right: Knee [id number] 04/06/2026 [id number] / [id number] Allowash Xg Sterilized Allograft Bio Implants Implanted:Qty: 1 on 05/22/2021 by Sagar Syed MD at [facility] Right: Knee [id number] 04/12/2024 [facility] / [id number] / Procedures Procedure Name Priority Date/Time Associated Diagnosis Comments CT ABD+PEL W CON STAT 08/16/2024 3:50 PM CATHETER BUILDER TRICHOMONAS ANTIGEN STAT 08/16/2024 3 :37 PM CATHETER BUILDER CULTURE, GENITAL W/ GRAM STAIN STAT 08/16/2024 3:37 PM CATHETER BUILDER CHLAMYDIA GC RNA STAT 08/16/2024 3:37 PM CATHETER BUILDER HCG QUANT (SERUM)-CHORIONIC GONADOTROPIN STAT 08/16/2024 2:20 PM CATHETER BUILDER PROLACTIN STAT 08/16/2024 2:20 PM CATHETER BUILDER LH, LUTEINIZING HORMONE STAT 08/16/2024 2:20 PM CATHETER BUILDER FSH, FOLLICLE STIM HORMONE STAT 08/16/2024 2:20 PM CATHETER BUILDER LACTIC ACID W REFLEX (SEPSIS) STAT 08/16/2024 2:20 PM CATHETER BUILDER PARTIAL THROMBOPLASTIN TIME,PTT STAT 08/16/2024 2:20 PM CATHETER BUILDER PROTHROMBIN TIME, VENOUS STAT 08/16/2024 2:20 PM CATHETER BUILDER COMPREHENSIVE METABOLIC PANEL STAT 08/16/2024 2:20 PM CATHETER BUILDER CBC W/DIFF AUTOMATED STAT 08/16/2024 2:20 PM CATHETER BUILDER HC URINALYSIS AUTO W/MICRO STAT 08/16/2024 2:15 PM CATHETER BUILDER HEPATITIS C ANTIBODY Routine 05/11/2022 3:54 PM CDT Supervision of high risk , unspecified, unspecified trimester (HHS/HCC) from Last 3 Months or Most Recently Relevant to Health Maintenance Results * CT ABD+PEL W IV CON ONLY (08/16/2024 3:50 PM CATHETER BUILDER) Anatomical Region Laterality Modality Abdomen Computed Tomogra phy 08/16/2024 3:52 PM CATHETER BUILDER Impressions 08/16/2024 3:59 PM CATHETER BUILDER IMPRESSION: 1. No acute abnormality identified. 2. Nonobstructive left nephrolithiasis. 3. Left ovarian cyst, 2.8 cm. 4. Status post cholecystectomy with mild stable bile duct dilatation. Referred By: Interpreted By: Tian Soliz MD, 08/16/2024 3:52 PM Narrative 08/16/2024 3:59 PM CATHETER BUILDER [address] [place] [address] EXAMINATION: CT ABD+PEL W CON CLINICAL HISTORY: [...] Procedure Note Tian Soliz MD - 08/16/[address] [place] [address] EXAMINATION: CT ABD+PEL W CON CLINICAL HISTORY: [...] GENITAL W/ GRAM STAIN (08/16/2024 3:37 PM CATHETER BUILDER) SPEC DESCRIPTION CERVIX 08/16/2024 3:40 PM CATHETER BUILDER [facility] SPECIAL REQUESTS NO SPECIAL REQUEST 08/16/2024 3:40 PM CATHETER BUILDER [facility] GRAM STAIN RESULT MANY GRAM POSITIVE RODS 08/16/2024 4:32 PM CATHETER BUILDER [facility] GRAM STAIN RESULT NO WBC SEEN 08/16/2024 4:32 PM CATHETER BUILDER [facility] GRAM STAIN RESULT RARE EPITHELIAL CELLS SEEN 08/16/2024 4:32 PM CATHETER BUILDER [facility] GRAM STAIN RESULT NO FUNGAL ELEMENTS SEEN 08/16/2024 4:32 PM CATHETER BUILDER [facility] GRAM STAIN RESULT NO CLUE CELLS 08/16/2024 4:32 PM CATHETER BUILDER [facility] CULTURE RESULT MODERATE GARDNERELLA VAGINALIS 08/19/2024 10:41 AM CATHETER BUILDER [facility] CULTURE RESULT FEW STAPHYLOCOCCUS, COAGULASE NEGATIVE 08/19/2024 10:41 AM CATHETER BUILDER [facility] CULTURE RESULT FEW ENTEROCOCCUS FAECALIS 08/19/2024 10:41 AM CATHETER BUILDER [facility] CULTURE RESULT FEW ALPHA STREPTOCOCCUS 08/19/2024 10:41 AM CATHETER BUILDER [facility] SPECIMEN FROM UTERINE CERVIX / Unknown 08/16/2024 3:37 PM CATHETER BUILDER 08/16/2024 3:54 PM CATHETER BUILDER Narrative Organism Antibiotic Method Susceptibility Staphylococcus, coagulase [...] MICROBIOLOGY - GENERAL ORDERABLE S Final Result [facility] [address] [place] [address], [id number] [facility] [place] [address], * CHLAMYDIA GC RNA (08/16/2024 3:37 PM CATHETER BUILDER) SPEC DESCRIPTION VAGINAL SPECIMEN 08/16/2024 3:40 PM CATHETER BUILDER [facility] CHLAMYDIA RNA TMA NEGATIVE NEGATIVE 025 11:28 AM CATHETER BUILDER [facility] Comment:PERFORMED BY NUCLEIC ACID AMPLIFICATION N.GONORRHOEAE RNA TMA NEGATIVE NEGATIVE 08/18/2024 11:28 AM CATHETER BUILDER [facility] Comment:PERFORMED BY NUCLEIC ACID AMPLIFICATION VAGINAL STRUCTURE / Unknown 08/16/2024 3:37 PM CATHETER BUILDER us Jovanni Orozco DO MICROBIOLOGY - GENERAL ORDERABLE S Final Result Performing Organization Address [facility]/ZIP Co de Phone Number [facility] [address] [place] [address], [facility] [place] [address], * TRICHOMONAS ANTIGEN (08/16/2024 3:37 PM CATHETER BUILDER) SPECIMEN TYPE CERVIX 08/16/2024 3:40 PM CATHETER BUILDER [facility] TRICHOMONAS NEGATIVE NEGATIVE 08/16/2024 4:17 PM CATHETER BUILDER [facility] CERVIX UTERI STRUCTURE / Unknown 08/16/2024 3:37 PM CATHETER BUILDER us Jovanni Orozco DO MICROBIOLOGY - GENERAL ORDERABLE S Final Result Performing Organization Address City/[facility]/ZIP Co de Phone Number [facility] [place] [address], * LACTIC ACID W REFLEX (SEPSIS) (08/16/2024 2:20 PM CATHETER BUILDER) LACTIC ACID VENOUS 0.9 0.4 - 2.0 MMOL/L 08/16/2024 2:47 PM CATHETER BUILDER [facility] 08/16/2024 2:20 PM CATHETER BUILDER us Jovanni Orozco DO LABORATORY Final Result Performing Organization Address [facility] Co de Phone Number [facility] [address] [place] [address], * PARTIAL THROMBOPLASTIN TIME,PTT (08/16/2024 2:20 PM CATHETER BUILDER) PTT 31.0 25.1 - 36.5 SEC 08/16/2024 2:36 PM CATHETER BUILDER [facility] 08/16/2024 2:20 PM CATHETER BUILDER us Jovanni Orozco DO LABORATORY Final Result Performing Organization Address [facility] Co de Phone Number [facility] [address] [place] [address], [place] [phone] * (ABNORMAL) PROTIME/INR, VENOUS (08/16/2024 2:20 PM CATHETER BUILDER) PROTIME 13.1(H) 9.4 - 12.5 SEC 08/16/2024 2:36 PM CATHETER BUILDER [facility] INR 1.1(H) 0.8 - 1.0 08/16/2024 2:36 PM CATHETER BUILDER [facility] 08/16/2024 2:20 PM CATHETER BUILDER us Jovanni Orozco DO LABORATORY Final Result Performing Organization Address [facility] Co de Phone Number [facility] [address] [place] [address], [place] [phone] * COMPREHENSIVE METABOLIC PANEL (08/16/2024 2:20 PM CATHETER BUILDER) SODIUM S/P/B 142 136 - 145 MMOL/L 08/16/2024 3:04 PM CATHETER BUILDER [facility] POTASSIUM S/P/B 4.3 3.5 - 5.1 MMOL/L 08/16/2024 3:04 PM [facility] CHLORIDE S/P/B 105 98 - 107 MMOL/L 08/16/2024 3:04 PM [facility] CO2 29.4 21.0 - 32.0 MMOL/L 08/16/2024 3:04 PM [facility] GLUCOSE 89 70 - 99 MG/DL 08/16/2024 3:04 PM [facility] Comment: FASTING GLUCOSE 100 TO 125 MG/DL IS CONSISTENT WITH IMPAIRED FASTING GLUCOSE. FASTING GLUCOSE >125 MG/DL IS CONSISTENT WITH DIABETES. RANDOM GLUCOSE >200 MG/DL WITH HYPERGLYCEMIC SYMPTOMS IS CONSISTENT WITH DIABETES. PER ADA GUIDELINES BUN 10 6 - 24 MG/DL 08/16/2024 3:04 PM [facility] CREATININE S/P/B 0.75 0.55 - 1.02 MG/DL 08/16/2024 3:04 PM [facility] CALCIUM S/P/B 9.0 8.4 - 10.5 MG/DL 08/16/2024 3:04 PM [facility] BILIRUBIN TOTAL S/P/B 0.6 0.2 - 1.0 MG/DL 08/16/2024 3:04 PM [facility] Comment: THIS ASSAY IS NOT RECOMMENDED FOR PATIENTS UNDERGOING TREATMENT WITH ELTROMBOPAG DUE TO THE POTENTIAL FOR FALSELY ELEVATED RESULTS. ALKALINE PHOSPHATASE S/P/B 93 37 - 98 U/L 08/16/2024 3:04 PM [facility] AST 16 15 - 37 U/L 08/16/2024 3:04 PM [facility] ALT 20 14 - 59 U/L 08/16/2024 3:04 PM [facility] TOTAL PROTEIN S/P/B 7.3 6.4 - 8.2 G/DL 08/16/2024 3:04 PM [facility] ALBUMIN S/P/B 4.1 3.4 - 5.0 G/DL 08/16/2024 3:04 PM [facility] ANION GAP 7.6 5.0 - 15.0 MMOL/L 08/16/2024 3:04 PM CATHETER BUILDER [facility] OSMOLALITY (CALC) 293 MOSM/KG 025 3:04 PM CATHETER BUILDER [facility] Comment:REFERENCE RANGE NOT ESTABLISHED GFR ESTIMATE >90 >89 ML/MIN/1. 73 M2 08/16/2024 3:04 PM CATHETER BUILDER [facility] GFR NOTES GFR REFERENCE S: 08/16/2024 3:04 PM CATHETER BUILDER [facility] Comment: THE ESTIMATED GFR IS CALCULATED [...] FAILURE: <15 ml/min/1.73 m2 08/16/2024 2:20 PM CATHETER BUILDER us Jovanni Orozco DO LABORATORY Final Result [facility] [address] [place] [address], * LH, LUTEINIZING HORMONE (08/16/2024 2:20 PM CATHETER BUILDER) Luteinizing Hormone 13.6 MIU/ML 08/17 12:21 PM CATHETER BUILDER [facility] Comment: FOLLIC PHASE: 1.9 TO 12.8 mIU/mL MID CYCLE: 22.8 TO 76.1 mIU/mL LUTEAL PHASE: 0.6 TO 13.5 mIU/mL POST MENOPAUSAL W/O HRT: 8.6 TO 61.8 mIU/mL ASSAY PERFORMED BY CHEMILUMINESCENCE METHODOLOGY USING SIEMENS D[employer]ISTA REAGENT. PATIENT RESULTS DETERMINED BY ASSAYS USING DIFFERENT MANUFACTURERS FOR METHODS MAY NOT BE COMPARABLE. 08/16/2024 2:20 PM CATHETER BUILDER us Jovanni Orozco DO LABORATORY Final Result Performing Organization Address [facility]/ZIP Co de Phone Number [facility] [address] [place] [address], [place] [phone] * FSH, FOLLICLE STIM HORMONE (08/16/2024 2:20 PM CATHETER BUILDER) FSH 14.2 MIU/ML 08/17/2024 12:21 PM CATHETER BUILDER [facility] Comment: FOLLIC PHASE: 2.3 TO 12.6 mIU/mL MID CYCLE: 5.2 TO 17.5 mIU/mL LUTEAL PHASE: 1.7 TO 12.9 mIU/mL POST MENOPAUSAL NOT ON THERAPY: 12.7 TO 132.2 mIU/mL ASSAY PERFORMED BY CHEMILUMINESCENCE METHODOLOGY USING SIEMENS [employer] [place] [employer]AGENT. PATIENT RESULTS DETERMINED BY ASSAYS USING DIFFERENT MANUFACTURERS FOR METHODS MAY NOT BE COMPARABLE. 08/16/2024 2:20 PM CATHETER BUILDER us Jovanni Orozco DO LABORATORY Final Result Performing Organization Address [facility] Co de Phone Number [facility] [address] [place] [address], [place] [phone] * HCG QUANT (SERUM)-CHORIONIC GONADOTROPIN (08/16/2024 2:20 PM CATHETER BUILDER) HCG QUANTITATIVE <1 0.0 - 6.0 MIU/ML 08/16/2024 4:10 PM CATHETER BUILDER [facility] Comment:NON- FEMALE 0-6 08/16/2024 2:20 PM CATHETER BUILDER us Jovanni Orozco DO LABORATORY Final Result [facility] [address] [place] [address], [place] [phone] * (ABNORMAL) CBC W/DIFF AUTOMATED (08/16/2024 2:20 PM CATHETER BUILDER) [facility] WBC 7.30 4.00 - 10.80 x10'3/uL 08/16/2024 2:26 PM CATHETER BUILDER [facility] RBC 4.92 4.10 - 5.40 x10'6/uL 08/16/2024 2:26 PM [facility] HGB 14.3 12.0 - 16.0 G/DL 08/16/2024 2:26 PM [facility] HCT 42.7 36.0 - 47.0 % 08/16/2024 2:26 PM [facility] MCV 86.8 78.0 - 100.0 FL 08/16/2024 2:26 PM [facility] MCH 29.1 27.0 - 31.0 PG 08/16/2024 2:26 PM [facility] MCHC 33.5 33.0 - 36.0 G/DL 08/16/2024 2:26 PM [facility] RDW 16.9(H) 11.5 - 14.5 % 08/16/2024 2:26 PM [facility] PLT 231 150 - 350 x10'3/uL 08/16/2024 2:26 PM [facility] MPV 9.8 7.4 - 10.4 FL 08/16/2024 2:26 PM [facility] CBC COMMENT NORMAL REFERENCE RANGE NOT ESTABLISHED FOR THE PROPORTIONAL LEUKOCYTE DIFFERENTIAL. 08/16/2024 2:26 PM [facility] NEUTROPHILS % 52.1 % 08/16/2024 2:26 PM [facility] LYMPHOCYTES % 34.9 % 08/16/2024 2:26 PM [facility] MONOCYTES % 8.6 % 08/16/2024 2:26 PM [facility] EOSINOPHILS % 3.3 % 08/16/2024 2:26 PM [facility] BASOPHILS % 1.0 % 08/16/2024 2:26 PM [facility] IMMATURE GRANS % 0.1 % 02/09/20 25 2:26 PM CATHETER BUILDER [facility] NRBC % 0.0 % 08/16/2024 2:26 PM CATHETER BUILDER [facility] ABS. NEUTROPHILS 3.80 1.60 - 8.30 x10'3/uL 08/16/2024 2:26 PM CATHETER BUILDER [facility] ABS. LYMPHOCYTES 2.55 0.80 - 4.70 x10'3/uL 08/16/2024 2:26 PM CATHETER BUILDER [facility] ABS. MONOCYTES 0.63 0.00 - 1.50 x10'3/uL 08/16/2024 2:26 PM CATHETER BUILDER [facility] ABS. EOSINOPHILS 0.24 0.00 - 0.40 x10'3/uL 08/16/2024 2:26 PM CATHETER BUILDER [facility] ABS. BASOPHILS 0.07 0.00 - 0.20 x10'3/uL 08/16/2024 2:26 PM CATHETER BUILDER [facility] ABS. IMMATURE GRANULOCYTES 0.01 0.00 - 0.03 x10'3/uL 08/16/2024 2:26 PM CATHETER BUILDER [facility] ABS. NUCLEATED RBC'S 0.00 0.00 - 0.01 x10'3/uL 08/16/2024 2:26 PM CATHETER BUILDER [facility] 08/16/2024 2:20 PM CATHETER BUILDER Jovanni Orozco DO LABORATORY Final Result [facility] [address] [place] [address] [address], * PROLACTIN (08/16/2024 2:20 PM CATHETER BUILDER) PROLACTIN 14.1 2.2 - 30.3 NG/ML 08/17/2024 1:22 PM CATHETER BUILDER [facility] Comment: ASSAY PERFORMED BY CHEMILUMINESCENCE METHODOLOGY USING [employer]IST[employer] REAGENT. PATIENT RESULTS DETERMINED BY ASSAYS USING DIFFERENT MANUFACTURERS FOR METHODS MAY NOT BE COMPARABLE. 08/16/2024 2:20 PM CATHETER BUILDER Jovanni Orozco DO LABORATORY Final Result [facility] [address] [place] [address], [id number] * (ABNORMAL) URINALYSIS (08/16/2024 2:15 PM CATHETER BUILDER) COLOR (U) YELLOW 08/16/2024 2:39 PM CATHETER BUILDER [facility] TRANSPARENCY CLEAR 08/16/2024 2:39 PM CATHETER BUILDER [facility] SPECIFIC GRAVITY (U) 1.020 1.000 - 1.025 08/16/2024 2:39 PM CATHETER BUILDER [facility] U PH 8.5(H) 5.0 - 8.0 08/16/2024 2:39 PM CATHETER BUILDER [facility] LEUKOCYTES (U) NEGATIVE NEGATIVE 08/16/2024 2:39 PM CATHETER BUILDER [facility] NITRITES NEGATIVE NEGATIVE 08/16/2024 2:39 PM CATHETER BUILDER [facility] PROTEIN RANDOM (U) NEGATIVE NEGATIVE 08/16/2024 2:39 PM CATHETER BUILDER [facility] GLUCOSE (U) NEGATIVE NEGATIVE 08/16/2024 2:39 PM CATHETER BUILDER [facility] KETONES MG/DL (U) NEGATIVE NEGATIVE 08/16/2024 2:39 PM CATHETER BUILDER [facility] UROBILINOGEN 0.2 <1.0 EU/DL 08/16/2024 2:39 PM CATHETER BUILDER [facility] BILIRUBIN (U) NEGATIVE NEGATIVE 08/16/2024 2:39 PM CATHETER BUILDER [facility] BLOOD (U) NEGATIVE NEGATIVE 08/16/2024 2:39 PM CATHETER BUILDER [facility] WBC/HPF 0-5 0 - 5 /HPF 08/16/2024 2:39 PM CATHETER BUILDER [facility] RBC/HPF 0-5 0 - 5 /HPF 08/16/2024 2:39 PM CATHETER BUILDER [facility] EPI/LPF OCCASIONAL /LPF 08/16/2024 2:39 PM CATHETER BUILDER [facility] BACTERIA (U) TRACE /HPF 08/16/2024 2:39 PM CATHETER BUILDER [facility] URINE SPECIMEN OBTAINED BY CLEAN CATCH PROCEDURE / Unknown 08/16/2024 2:15 PM CATHETER BUILDER Jovannikenia Haleneelam DO URINE ORDERABLES Final Result [facility] [address] [place] [address], [place] [phone] * HEPATITIS C ANTIBODY (05/11/2022 3:54 PM CDT) HEPATITIS C AB NON-REACTI VE NON-REACT CHER 05/11/2022 6:07 PM CDT [facility] Comment: ANTIBODIES TO HCV NOT DETECTED. DOES NOT EXCLUDE THE POSSIBILITY OF EXPOSURE TO HCV. 05/11/2022 3:54 PM CDT [facility] LABORATORY Final Result Performing Organization Address City/[facility] Co de Phone Number [facility] [address] [place] [address], [place] [phone] from Last 3 Months or Most Recently Relevant to Health Maintenance Additional Health Concerns Infection Onset Date Last Indicated ESBL - Extended Spectrum Bet a-lactamase Comment:01/02/23 urine (JJ) 01/02/2023 01/02/2023 Insurance [facility] Advance Directives * Full Code (Latest [...] 8:44 AM 06/27/2018 1:13 PM Care Teams Scrape Gatherer Relationship Specialty Start Date End Date Vannesa Ma MD [address] [place] [address] [place] [address] PCP - General FAMILY PRACTICE 08/16/24 Gallito Caldwell MD [address] [place] [address] [phone] Consulting Physician INTERVENTIONAL CARDIOLOGY 07/10/22 Oliver Allen APRN [address] [place] [address] [place] [id number] Nurse Practitioner NURSE PRACTITIONER 07/10/22
--- OUTSIDE RECORDS SUMMARY | 2024-08-26 00:18 | XMS_ITS | Encounter Summary ---
Author Organization [facility] Address Formerly [facility], later [facility] [place] [address] Care Team Providers Care Plate Straightener Name Role Phone Casey Alvarado APNP Primary Care Provi luis George Osborne MD Primary Care Provider [phone] Devorah Hansen APRN, DATA WAREHOUSING ENGINEER-C Unavailable [phone] Roxie Higuera PRODUCT DESIGN MANAGER Unavailable [phone] None, Provider Primary Care Provider Unavaila ble George Osborne MD Primary Care Provider [phone] Devorah Thomas NP Primary Care Provider [phone] Gallito Caldwell MD Unavailable [phone] Oliver Allen APRN Unavailable [phone] Wilda Savage NP Primary Care Provider [phone] Devorah Thomas NP Primary Care Provider [phone] Malou Frazier MD Primary Care Provider [phone] Vannesa Ma MD Primary Care Provider [phone] Encounter Details Date Type Department Care Team (Late st Contact Info) Description 09/21/2017 Abstract [facility] CONVERSION [address], [place] [id number] , Generic Conversion, Social History Tobacco Use Types Packs/Day Years Used Date Smoking Tobacco: Never Assessed Comments Unknown Sex and Gender Information Value Date Recorded Sex Assigned at Female 10/12/2022 9:41 PM CDT Legal Sex Female 8:59 PM [employer] Gender Identity Female 10/12/2022 9:41 PM CDT [...] Rule Out 07/15/2020 07/15/2020 07/15/2020 8:54 AM [employer] COVID-19 Rule Out 07/15/2020 07/15/2020 07/17/2020 6:30 AM [employer] COVID-19 Rule Out 05/19/2021 05/19/2021 05/19/2021 8:36 PM [employer] COVID-19 Rule Out 07/12/2021 07/12/2021 07/12/2021 4:41 PM [employer] COVID-19 Rule Out 07/12/2021 07/12/2021 07/14/2021 7:22 PM [employer] COVID-19 Rule Out 09/11/2021 09/11/2021 09/11/2021 2:35 PM [employer] COVID-19 Rule Out 11/30/2021 11/30/2021 11/30/2021 11:54 AM CDT COVID-19 Rule Out 11/30/2021 11/30/2021 12/01/2021 1:54 PM CDT COVID-19 Rule Out 12/30/2021 12/30/2021 12/30/2021 2:27 PM CDT COVID-19 Rule Out 12/30/2021 12/30/2021 12/31/2021 6:15 PM CDT ESBL - Extended Spectrum Beta-lactamase Comment:01/02/23 urine (JJ) 01/02/2023 01/02/2023 documented as of this encounter Care Teams Plate Straightener Relationship Specialty Start Date End Date Casey Alvarado APNP PCP - General NURSE PRACTITIONER 05/21/18 10/23/18 George Osborne MD [address] [place] [address] PCP - General FAMILY PRACTICE 10/24/18 11/26/18 Katharine Taylor MD PCP - General 11/27/18 12/14/18 George Osborne MD [facility] [place] [id number] PCP - General FAMILY PRACTICE 12/15/18 02/17/19 Devorah Thomas NP PCP - General Nurse Practitioner Family 03/01/20 10/30/22 Wilda Savage NP [address] [place] [id number] PCP - General Nurse Practitioner Family 12/21/22 01/01/23 Devorah Thomas NP PCP - General Nurse Practitioner Family 10/31/22 12/20/22 Malou Frazier MD [facility] [place] [address] PCP - General FAMILY PRACTICE 01/02/23 08/15/24 Vannesa Ma MD [facility] [place] [address] PCP - General FAMILY PRACTICE 08/16/24 Devorah Hansen APRN, DATA WAREHOUSING ENGINEER-C [facility] [place] [address] CARDIOVASCULAR DISEASE 10/24/18 9 Roxie Higuera FNP [address] [place] [id number] FAMILY PRACTICE 10/24/18 07/09/22 Gallito Caldwell MD [address] [place] [id number] Consulting Physician INTERVENTIONAL CARDIOLOGY 07/10/22 Oliver Allen APRN [address] [place] [address] [address] Nurse Practitioner NURSE PRACTITIONER 07/10/22 documented as of this encounter
[2024-08-26] MEDS: ACETAMINOPHEN 500 MG TABLET 1000 MG PO (11:29)
[2024-08-26] MEDS: KETOROLAC 15 MG/ML VIAL (*BKC) IV PUSH (11:29)
--- NOTE | 2024-08-26 12:09 | P.HP_ITS ---
H&P: HPI History of Present Illness Date/Time: 08/26/24 12:09 Chief Complaint: Pain Narrative: 29 y/o female who had a hysterectomy with RSO. Now she has persistent pain in the area of the left adnexa and wants to have the left ovary removed. Review of Systems Review of Systems: All systems reviewed & are unremarkable except as noted in HPI and below PMFSH Past Medical History Medical History DVT (deep venous thrombosis) Itching Anxiety Surgical History Surgical History History of hysterectomy Delivery by section (11/30/22) Repeat low transverse section Bilateral salpingectomy H/O breast augmentation History of cholecystectomy Hx of appendectomy Previous section Family History Family History Other Patient denies medical problems Patient denies significant medical history Social History Social History Smoking status: Never smoker Alcohol intake: current Drinks per week: 1 Substance use: never Lack of Transportation: No Lack of Food: Never True Current Housing: I Have Housing Concerned About Future Housing: No Difficulty Paying Gas/Electric Bills: No Difficulty Paying for Meds: No Currently Unemployed: No Education: Associate Degree Difficulty w/ Childcare or Family Care: No Living arrangements: with family Additional living arrangements comments: spouse and children Occupation/Education: occupation Gender identity (if verbalized by the patient): Female Sexual Orientation (if Verbalized by the Patient): Straight or Heterosexual Spiritual care concerns: No Meds Home Medications and Allergies Home Medications ?Medication ?Instructions ?Recorded ?Confirmed ?Type buspirone 15 mg tablet 15 mg PO TID 08/21/24 08/26/24 History hydrocodone 5 mg-acetaminophen 325 1 tablet PO Q6H PRN pain 08/21/24 08/21/24 History mg tablet Allergies Allergy/AdvReac Type Severity Reaction Status Date / Time latex Allergy Intermediate Rash Verified 08/26/24 11:04 nitrofurantoin (From Allergy Mild Itching Verified 08/26/24 11:04 Macrobid) Vital Signs Vital Signs - 24 hr 02/19/25 10:55 Temperature 37.1 C Pulse Rate 82 Respiratory Rate 18 Blood Pressure 112/65 Pulse Oximetry 99 Oxygen Delivery Room Air Exam Const: Orientation/consciousness: patient oriented x3 Other: Well-developed, well-nourished female in no acute distress. Neck: Thyroid: thyroid normal Lymphatic: no lymphadenopathy noted (in neck, axilla or inguinal nodes) Resp: Effort & Inspection: normal respiratory effort Auscultation: clear to auscultation bilaterally Cardio: Rate: regular rate Rhythm: regular rhythm Heart sounds: S1 normal heart sound present and S2 normal heart sound present GI: Other: ABD: Soft, nontender, nondistended. No guarding or rebound tenderness. No hepatosplenomegaly. : General: Yes no CVA tenderness Other: External genitalia: normal female hair distribution, without lesion. Urethral meatus: no lesion, non prolapsed. Bladder: no mass, nontender Vagina: well-estrogenized, without lesion or discharge. No cystocele or rectocele. Cervix: no lesion or discharge. Uterus: small, anteverted, freely mobile, nontender Adnexa: no mass or tenderness. Anus/perineum: no lesions, nontender Back/Spine/Pelvis: Back: no CVA tenderness Skin: General skin exam: normal color and no rashes or lesions noted Neuro: General: patient oriented x3 Extrem: Other: Extremities: nontender with no edema Psych: Mental Status: mental status grossly normal Affect: normal affect Assessment and Plan Assessment and plan (1) Pelvic pain: Code(s): R10.2 - Pelvic and perineal pain Status: Acute Assessment and Plan: A: Persistent left adnexal pain. P: I have offered and encouraged conservative treatment, but the patient strongly desires surgical management with laparoscopic left salpingo- oophorectomy. She understands risks of surgery to include risks of anesthesia, risks of pain, infection, bleeding, blood products, thromboembolic phenomena and damage to adjacent structures such as bowel, bladder, ureters, blood vessels and nerves. She understands that oophorectomy will render her surgically menopausal and she may well experience menopausal symptoms. With her DVT history, this may limit her treatment options. She understands all these risks and elects to pr oceed with surgery.
--- NOTE | 2024-08-26 12:14 | WPDHPUPDATE1 ---
History and Physical Update Update Date/Time: 08/26/24 12:14 History and Physical has been reviewed, including an updated exam of the patient. There are NO changes in the patient's condition. Risks, benefits, and alternatives have been discussed and questions answered. Patient agrees to proceed with procedure.
--- NOTE | 2024-08-26 12:47 | WPDANESEPPF ---
Anes - Initial Pre Proc Eval Procedure: Operation Date: 08/26/24 13:00 Proposed Procedures p Laparoscopic Left Salpingo-oophorectomy - Marty Rivera MD Date/Time: 08/26/24 12:47 Surgeon: Marty Rivera MD Pre Op Diagnosis: left ovarian cyst, pelvic pain Patient Data Age: 29 Gender: F Height: 1.56 m Weight: 49.2 kg Last Vital Signs Temp 37.1 C 08/26/24 10:55 Pulse 82 08/26/24 10:55 Resp 18 08/26/24 10:55 BP 112/65 08/26/24 10:55 Pulse Ox 99 08/26/24 10:55 O2 Del Method Room Air 08/26/24 10:55 Allergies Allergy/AdvReac Type Severity Reaction Status Date / Time latex Allergy Intermediate Rash Verified 08/26/24 11:04 nitrofurantoin (From Allergy Mild Itching Verified 08/26/24 11:04 Macrobid) Home Medications ?Medication ?Instructions ?Recorded ?Confirmed ?Type buspirone 15 mg tablet 15 mg PO TID 08/21/24 08/26/24 History hydrocodone 5 mg-acetaminophen 325 1 - 2 tablet PO Q6H PRN pain #30 08/26/24 Rx mg tablet tabs Patient hx anesthesia problems: none Family hx anesthesia problems: none Results Review: All pre-operative results and documents have been reviewed as part of the pre-operative evaluation. [facility] Past Medical History Medical History (Updated 08/26/24 @ 12:47 by Rashard Bill DO) Bipolar disorder Nutcracker phenomenon of renal vein DVT (deep venous thrombosis) Itching Anxiety Surgical History Surgical History History of hysterectomy Delivery by section (11/30/22) Repeat low transverse section Bilateral salpingectomy H/O breast augmentation History of cholecystectomy Hx of appendectomy Previous section Family History Family History Other Patient denies medical problems Patient denies significant medical history Social History Social History Smoking status: Never smoker Alcohol intake: current Drinks per week: 1 Substance use: never Lack of Transportation: No Lack of Food: Never True Current Housing: I Have Housing Concerned About Future Housing: No Difficulty Paying Gas/Electric Bills: No Difficulty Paying for Meds: No Currently Unemployed: No Education: Associate Degree Difficulty w/ Childcare or Family Care: No Living arrangements: with family Additional living arrangements comments: spouse and children Occupation/Education: occupation Gender identity (if verbalized by the patient): Female Sexual Orientation (if Verbalized by the Patient): Straight or Heterosexual Spiritual care concerns: No Anes - Eval Final PreProcedure Day of Procedure 08/26/24 12:47 Patient weight: normal Heart: regular rate and rhythm Lungs: clear to auscultation and normal air movement Airway: Mallampati scale class II Neurological: alert and oriented Last oral intake: >/= 8 hours ASA classification: III Emergent: no Anesthetic plan: proceed Anesthesia type and monitoring: general ETT and standard monitoring Results Review: All pre-operative results and documents have been reviewed as part of the pre-operative evaluation. Informed Consent: The patient's anesthetic plan and its attendant risks and benefits were discussed with the patient/family/POA. Questions were solicited and answers provided to the satisfaction of the patient/family/POA.
[2024-08-26] MEDS: LACTATED RINGERS 1,000 ML 30 ML IV CONT (13:00)
--- NOTE | 2024-08-26 13:50 | P.OP_ITS ---
Procedure Note - Detailed Date of Procedure 08/26/24 Pre-op Diagnosis Persistent left sided pelvic pain Left ovarian cyst Post-op Diagnosis Same Procedure Performed Laparoscopic left oophorectomy. Surgeon Marty Rivera MD Anesthesia General Findings Left ovary with cystic changes, approximately 3 x 2.5 x 2 cm in total, on a fairly narrow infundibulopelvic ligament stalk. The uterus, right ovary, and bilateral Fallopian tubes were surgically absent. Description of Procedure The patient was taken to the operating room where general endotracheal anesthesia was administered. She was prepared and draped in the usual sterile fashion in the dorsal lithotomy position. The bladder was drained with a latex- free catheter. A sponge stick was placed into the vagina. Gloves were changed and attention was turned to the abdomen. A supraumbilical skin incision was made with a scalpel along an old scar line. The abdomen was tented and a 5 millimeter bladeless trocar trocar was advanced under direct laparoscopic visualization. Pneumoperitoneum was administered using carbon dioxide gas. A survey of the pelvis and abdomen yielded the findings noted above. A second 5 mm port was similarly placed in the RLQ using a bladeless trocar under direct visualization, and a 10 mm port in the LLQ. The left ureter was identified. The left infundibulopelvic ligament was ligated and transected using the Ligasure device. The ovary was placed in an endobag and passed off to be sent to pathology. Hemostasis was excellent. The trocars were withdrawn and the gas was allowed to escape. The fascia at the LLQ incision was reapproximated using interrupted sutures of 0 Vicryl. The skin incisions were reapproximated using 4-0 Vicryl in interrupted subcuticular fashion. Dermaflex was applied externally. The vaginal sponge stick was withdrawn. Sponge, lap, needle and instrument counts were correct. The patient was awakened and taken to recovery in stable condition. I was present and scrubbed through the entire procedure. Implants None Estimated Blood Loss 5 Drains No Packing No Pathology Yes (Left ovary) Complications None Condition Stable Disposition PACU
[2024-08-26] MEDS: fentaNYL CITRATE INJ (*CRX) 100 MCG/2 ML VIAL 25 MCG IV PUSH ×2 (14:24→14:27)
[2024-08-26] MEDS: ONDANSETRON INJ 4 MG/2 ML VIAL IV PUSH (15:21)
[2024-08-26] MEDS: oxyCODONE HCL (*CRX) 5 MG TAB IR PO (15:21)
== END 2024-08-26 15:43 | disposition home or self-care (01) ==
PROVIDERS: PCP Family Medicine; Visit Provider Obstetrics & Gynecology
PROC: (CPT 49320; principal; 2024-08-26 13:00)
DX: N83.202 Unspecified ovarian cyst, left side (principal); G89.18 Other acute postprocedural pain; F41.9 Anxiety disorder, unspecified; F31.9 Bipolar disorder, unspecified; Z79.891 Long term (current) use of opiate analgesic; Z98.890 Other specified postprocedural states; Z90.49 Acquired absence of other specified parts of digestive tract; Z86.718 Personal history of other venous thrombosis and embolism
CPT/HCPCS: 58661; 88305; A9270; J1100; J1885; J2003; J2250; J2405; J2704; J3010; J7030; J7120